=== PATIENT | female | born 1990 | race Hispanic/Latino ===

== ENCOUNTER 2018-03-23 00:05 | Emergency (ER) | payer BC, OTHER, SELFPAY ==
[2018-03-23] MEDS ORDERED: LIDOCAINE 1% MPF 5 ML VIAL ONE (01:03)
--- NOTE | 2018-03-23 01:20 | ER ---
Nurse's Notes [facility] Name: Suzanne Anthony Age: 27 yrs Sex: Female : 1990 Arrival Date: 03/23/2018 Time: 00:07 Bed 6 Private MD: Diagnosis: Laceration without foreign body, right knee Presentation: 03/23 00:24 Presenting complaint: Patient states: "I kneeled into a piece of glass while in my car jd3 in the process of moving.". Transition of care: patient was not received from another setting of care. Onset of symptoms was March 23, 2018. Risk Assessment: Do you want to hurt yourself or someone else? Patient reports no desire to harm self or others. Initial Sepsis Screen: Does the patient meet any 2 criteria? No. Patient's initial sepsis screen is negative. Does the patient have a suspected source of infection? No. Patient's initial sepsis screen is negative. Care prior to arrival: None. 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 - Social history:: Smoking status: Patient uses tobacco products, denies chronic smoking, but will smoke occasionally. - Ebola Screening: : Patient negative for fever greater than or equal to 101.5 degrees Fahrenheit, and additional compatible Ebola Virus Disease symptoms. Screenin:27 Abuse screen: Denies threats or abuse. Nutritional screening: No deficits noted. jd3 Tuberculosis screening: No symptoms or risk factors identified. Fall Risk Ambulatory Aid- None/Bed Rest/Nurse Assist (0 pts). Gait- Normal/Bed Rest/Wheelchair (0 pts) Mental Status- Oriented to own ability (0 pts). Total Sharp Fall Scale indicates No Risk (0-24 pts). Assessment: 00:30 General: Appears in no apparent distress. Behavior is calm, cooperative, appropriate ea for age. Pain: Complains of pain in right knee. Neuro: Level of Consciousness is awake, alert, obeys commands, Oriented to person, place, time, situation. Cardiovascular: Patient's skin is warm and dry. Respiratory: Airway is patent Respiratory effort is even, unlabored, Respiratory pattern is regular, symmetrical. GI: No signs and/or symptoms were reported involving the gastrointestinal system. Derm: Skin is pink, warm \\T\\ dry. laceration to right knee. Musculoskeletal: Circulation, motion, and sensation intact. 01:34 Reassessment: Patient and/or family updated on plan of care and expected duration. Pain ea level reassessed. Patient is alert, oriented x 3, equal unlabored respirations, skin warm/dry/pink. Discharge instructions given to patient, verbalized the understanding of instruction Patient states symptoms have improved. Vital Signs: 00:26 BP 112 / 69; Pulse 72; Resp 16 S; Temp 97.9(O); Pulse Ox 98% on R/A; Weight 81.65 kg jd3 (R); Height 5 ft. 1 in. (154.94 cm) (R); Pain 6/10; 01:11 BP 111 / 65; Pulse 70; Resp 18; Pulse Ox 99% on R/A; ea 00:26 Body Mass Index 34.01 (81.65 kg, 154.94 cm) [facility] ED Course: 00:07 Patient arrived in ED. am2 00:22 Sheela Palacios, RN is Primary Nurse. ea 00:25 Triage completed. jd3 00:25 [facility]. jr8 00:26 Jose Palma MD is Attending Physician. jr8 00:27 Arm band placed on. Bandage applied. jd3 00:28 Patient has correct armband on for positive identification. Bed in low position. Call [facility] light in reach. Side rails up X 1. 01:06 Assist provider with laceration repair on right leg that was between 2.6 to 7.5 cm ea using sutures. Set up tray. Performed by Gonzales WATKINS Patient tolerated well. 01:35 Patient did not have IV access during this emergency room visit. ea Administered Medications: 01:00 Drug: Lidocaine (1 %) 1 vials {Note: provider.} Volume: 20 ml; Route: Infiltration; ea Outcome: 01:19 Discharge ordered by MD. isbell 01:35 Discharged to home via wheelchair, with significant other. erinn 01:35 Condition: improved 01:35 Discharge instructions given to patient, Instructed on discharge instructions, follow up and referral plans. Demonstrated understanding of instructions, follow-up care. 01:36 Patient left the ED. ea Signatures: Gonzales Perkins PA PA jr8 Sushma Buckley Elena RN Endy Chaudhry ea, RN RN jd3
--- NOTE | 2018-03-23 01:21 | EDPHYS ---
Physician Documentation [facility] Name: Suzanne Anthony Age: 27 yrs Sex: Female : 1990 Arrival Date: 03/23/2018 Time: 00:07 Bed 6 Private MD: ED Physician Jose Palma HPI: 03/23 01:16 This 27 yrs old Female presents to ER via Ambulatory with complaints of Knee jr8 Injury. 01:16 The patient presents with a laceration, 3 cm(s). The complaints affect the right knee. jr8 Context: The problem was sustained at home, resulted from a direct blow. Onset: The symptoms/episode began/occurred acutely, today. Modifying factors: The symptoms are alleviated by nothing. the symptoms are aggravated by nothing. Associated signs and symptoms: The patient has no apparent associated signs or symptoms. Severity of symptoms: At their worst the symptoms were mild, in the emergency department the symptoms are unchanged. The patient has not experienced similar symptoms in the past. The patient has not recently seen a physician. cut knee on glass while moving furniture at home . 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 - Social history:: Smoking status: Patient uses tobacco products, denies chronic smoking, but will smoke occasionally. - Ebola Screening: : Patient negative for fever greater than or equal to 101.5 degrees Fahrenheit, and additional compatible Ebola Virus Disease symptoms. ROS: 01:16 Eyes: Negative for injury, pain, redness, and discharge, ENT: Negative for injury, jr8 pain, and discharge, Neck: Negative for injury, pain, and swelling, Cardiovascular: Negative for chest pain, palpitations, and edema, Respiratory: Negative for shortness of breath, cough, wheezing, and pleuritic chest pain, Abdomen/GI: Negative for abdominal pain, nausea, vomiting, diarrhea, and constipation, Back: Negative for injury and pain, MS/Extremity: Negative for injury and deformity, Neuro: Negative for headache, weakness, numbness, tingling, and seizure. 01:16 Skin: Positive for laceration(s). Exam: 01:16 Eyes: Pupils equal round and reactive to light, extra-ocular motions intact. Lids and jr8 lashes normal. Conjunctiva and sclera are non-icteric and not injected. Cornea within normal limits. Periorbital areas with no swelling, redness, or edema. ENT: Nares patent. No nasal discharge, no septal abnormalities noted. Tympanic membranes are normal and external auditory canals are clear. Oropharynx with no redness, swelling, or masses, exudates, or evidence of obstruction, uvula midline. Mucous membranes moist. Neck: Trachea midline, no thyromegaly or masses palpated, and no cervical lymphadenopathy. Supple, full range of motion without nuchal rigidity, or vertebral point tenderness. No Meningismus. Cardiovascular: Regular rate and rhythm with a normal S1 and S2. No gallops, murmurs, or rubs. Normal PMI, no JVD. No pulse deficits. Respiratory: Lungs have equal breath sounds bilaterally, clear to auscultation and percussion. No rales, rhonchi or wheezes noted. No increased work of breathing, no retractions or nasal flaring. Abdomen/GI: Soft, non-tender, with normal bowel sounds. No distension or tympany. No guarding or rebound. No evidence of tenderness throughout. Back: No spinal tenderness. No costovertebral tenderness. Full range of motion. MS/ Extremity: Pulses equal, no cyanosis. Neurovascular intact. Full, normal range of motion. Neuro: Awake and alert, GCS 15, oriented to person, place, time, and situation. Cranial nerves II-XII grossly intact. Motor strength 5/5 in all extremities. Sensory grossly intact. Cerebellar exam normal. Normal gait. 01:16 Skin: injury, laceration(s), the wound is approximately 3 cm(s), with a depth of .3 cm(s), of the right knee, that can be described as no foreign body, linear, with mild bleeding. Vital Signs: 00:26 BP 112 / 69; Pulse 72; Resp 16 S; Temp 97.9(O); Pulse Ox 98% on R/A; Weight 81.65 kg jd3 (R); Height 5 ft. 1 in. (154.94 cm) (R); Pain 6/10; 01:11 BP 111 / 65; Pulse 70; Resp 18; Pulse Ox 99% on R/A; ea 00:26 Body Mass Index 34.01 (81.65 kg, 154.94 cm) jd3 Laceration: 01:16 Wound Repair of 3cm ( 1.2in ) subcutaneous laceration to right knee. Linear shaped.. jr8 Minimal bleeding noted.. Distal neuro/vascular/tendon intact. Anesthesia: Local anesthetic administered with 2 mls of 1% lidocaine. Wound prep: Moderate cleansing with betadine, Wound explored extensively. Skin closed with 3 3-0 Prolene using interrupted sutures and sterile technique. Patient tolerated well. MDM: 00:26 Patient medically screened. jr8 :16 Data reviewed: vital signs, nurses notes, and as a result, I will discharge patient. jr8 Data interpreted: Pulse oximetry: on room air is 99 %. Interpretation: normal. Counseling: I had a detailed discussion with the patient and/or guardian regarding: the historical points, exam findings, and any diagnostic results supporting the discharge/admit diagnosis, the need for outpatient follow up, a family practitioner, to return to the emergency department if symptoms worsen or persist or if there are any questions or concerns that arise at home. ED course: Patient up to date on tetanus . 03/23 00:47 Order name: Prolene, Sutures; Complete Time: 00:56 03/23 00:47 Order name: Dressing - Wound; Complete Time: 00:56 03/23 00:47 Order name: Gloves, Sterile; Complete Time: 0056 03/23 00:47 Order name: Setup Suture Tray; Complete Time: Administered Medications: 01:00 Drug: Lidocaine (1 %) 1 vials {Note: provider.} Volume: 20 ml; Route: Infiltration; ea Disposition: 06:29 Co-signature as Attending Physician, Jose Palma MD I agree with the assessment and viviana plan of care. Disposition: 03/23/18 01:19 Discharged to Home. Impression: Laceration without foreign body, right knee. - Condition is Stable. - Discharge Instructions: Laceration Care, Adult. - Medication Reconciliation Form, Thank You Letter, Antibiotic Education, Prescription Opioid Use, Work release form, Family Work Release form. - Follow up: Private Physician; When: 7 - 10 days; Reason: Wound Recheck, Recheck today's complaints, Continuance of care, Staple/Suture removal, Re-evaluation by your physician. - Problem is new. - Symptoms have improved. Signatures: Jose Palma MD MD cha Roszak, Josh, PA PA jr8 Sheela Palacios RN RN ea Endy Santiago RN RN jd3 Corrections: (The following items were deleted from the chart) 01:36 01:19 03/23/2018 01:19 Discharged to Home. Impression: Laceration without foreign body, ea right knee. Condition is Stable. Forms are Medication Reconciliation Form, Thank You Letter, Antibiotic Education, Prescription Opioid Use. Follow up: Private Physician; When: 7 - 10 days; Reason: Wound Recheck, Recheck today's complaints, Continuance of care, Staple/Suture removal, Re-evaluation by your physician. Problem is new. Symptoms have improved. jr8
== END 2018-03-23 01:36 | disposition home or self-care (01) ==
LOC: ER 00:05
PROC: 0JQN0ZZ Repair Right Lower Leg Subcutaneous Tissue and Fascia, Open Approach (ICD-10-PCS; principal; 2018-03-23)
DX: S81.011A Laceration without foreign body, right knee, initial encounter (principal); W25.XXXA Contact with sharp glass, initial encounter; Y93.89 Activity, other specified; Y92.009 Unspecified place in unspecified non-institutional (private) residence as the place of occurrence of the external cause; Z72.0 Tobacco use
CPT/HCPCS: 99283

== ENCOUNTER 2018-08-11 07:18 | Emergency (ER) | payer BC, SELFPAY ==
[2018-08-11 08:04] LABS: Absolute Lymphocytes (CBC) 2.2 K/uL (0.7-4.9); Absolute Monocytes 0.6 K/uL (0.1-1.3); Absolute Neutrophil 8.1 K/uL (1.8-8.0); Basophils % 0.5 % (0-1.3); Eosinophils % 0.8 % (0-4.4); Hematocrit 42.7 % (36.0-45.0); Lymphocytes % 19.7 % (15.3-44.8); MPV 9.1 fL (7.6-11.3); Monocytes % 5.7 % (3.3-12.3); RBC Red Blood Cell Count 5.26 M/uL (3.86-4.86)
[2018-08-11 08:07] LABS: Urine Blood NEGATIVE (NEG); Urine Glucose NEGATIVE (NEG); Urine Protein 1+ (NEG); Urine Specific Gravity 1.025 (1.005-1.030)
[2018-08-11 08:09] LABS: Urine Bacteria >50 /HPF (<20); Urine Culture Reflex Order NOT NEEDED; Urine Mucus HEAVY /HPF (NONE SEEN); Urine RBC <5 /HPF (NONE SEEN)
[2018-08-11] MEDS ORDERED: MORPHINE 2 MG/ML SYR ONE (08:16)
[2018-08-11] MEDS ORDERED: NA CHLORIDE 0.9% 1,000 ML ONE (08:16)
[2018-08-11] MEDS ORDERED: ONDANSETRON 4 MG/2 ML VIAL ONE ×2 (08:16→10:25)
[2018-08-11 08:20] LABS: ALT/SGPT 26 U/L (12-78); AST/SGOT 14 U/L (15-37); Albumin 3.9 g/dL (3.4-5.0); Alkaline Phosphatase 107 U/L (45-117); BUN Blood Urea Nitrogen 8 mg/dL (7-18); Bicarbonate 26 mmol/L (21-32); Bilirubin Direct 0.1 mg/dL (0-0.2); Bilirubin Total 0.5 mg/dL (0.2-1.0); Glucose Level 101 mg/dL (74-106); Lipase 107 U/L (73-393); Potassium 3.3 mmol/L (3.5-5.1); Protein, Total 8.1 g/dL (6.4-8.2); Sodium Level 140 mmol/L (136-145)
--- NOTE | 2018-08-11 09:06 | RAD REPORT ---
EXAM DESCRIPTION: CT - Stone Protocol - 08/11/2018 8:25 am CLINICAL HISTORY: Abdominal pain. Lower abdominal pain. Urinary frequency COMPARISON: 2017 TECHNIQUE: Computed axial tomography of the abdomen pelvis was obtained without oral or IV contrast. Lack of IV and oral contrast limits evaluation of solid organs, bowel, and vessels. Coronal reformat loki images were obtained and reviewed. All CT scans are performed using dose optimization technique as appropriate and may include automated exposure control or mA/KV adjustment according to patient size. FINDINGS: A renal calculus is not seen. An ureteral calculus is not noted. A bladder calculus is not present. The liver, spleen, pancreas and adrenals appear grossly normal Cholecystectomy There is no evidence of diverticulitis. The appendix is borderline dilated. No stranding is seen within the adjacent fat. Increased density w ithin the appendix probably contrast from prior exams. 2 centimeter left ovarian cyst without significant free fluid IMPRESSION: Negative for a genitourinary calculus 2 centimeter left ovarian cyst without significant free-fluid Borderline dilatation of the appendix. This is equivocal for an early appendicitis and should be shannan elated clinically
--- NOTE | 2018-08-11 09:17 | ER ---
Nurse's Notes [facility] Name: Suzanne Anthony Age: 28 yrs Sex: Female : 1990 Arrival Date: 08/11/2018 Time: 07:23 Bed 5 Private MD: Diagnosis: Other abdominal pain-left flank Presentation: 08/11 07:33 Presenting complaint: Patient states: LLQ abd pain for 4 days, worsening today, reports sg N/V and Constipationx1 day, has also had some dizziness that began this morning. Had fever and took tylenol around 0400 this morning. Transition of care: patient was not received from another setting of care. Onset of symptoms was August 11, 2018. Risk Assessment: Do you want to hurt yourself or someone else? Patient reports no desire to harm self or others. Initial Sepsis Screen: Does the patient meet any 2 criteria? No. Patient's initial sepsis screen is negative. Does the patient have a suspected source of infection? Yes: Acute abdominal pain. Care prior to arrival: None. 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 - Social history:: Smoking status: Patient/guardian denies using tobacco. - Ebola Screening: : Patient negative for fever greater than or equal to 101.5 degrees Fahrenheit, and additional compatible Ebola Virus Disease symptoms Patient denies exposure to infectious person Patient denies travel to an Ebola-affected area in the 21 days before illness onset No symptoms or risks identified at this time. Screenin:40 Abuse screen: Denies threats or abuse. Denies injuries from another. Nutritional sg screening: No deficits noted. Tuberculosis screening: No symptoms or risk factors identified. Never had TB. Fall Risk None identified. Assessment: 07:40 General: Appears in no apparent distress. well groomed, well developed, well nourished, sg Behavior is calm, cooperative, appropriate for age, crying. Pain: Complains of pain in left upper quadrant and left lower quadrant Quality of pain is described as aching, tender. Neuro: Level of Consciousness is awake, alert, obeys commands, Oriented to person, place, time, Toy Stuffer are equal bilaterally Moves all extremities. Full function Gait is steady, Speech is normal. Cardiovascular: Capillary refill is brisk in bilateral fingers Patient's skin is warm and dry. Chest pain is denied. Respiratory: Airway is patent Respiratory effort is even, unlabored, Respiratory pattern is regular, symmetrical. GI: Bowel sounds present X 4 quads. Abd is soft X 4 quads Abdomen is tender to palpation in left upper quadrant and left lower quadrant Guarding noted. : No signs and/or symptoms were reported regarding the genitourinary system. EENT: No signs and/or symptoms were reported regarding the EENT system. Derm: Skin is pink, warm \\T\\ dry. Musculoskeletal: No signs and/or symptoms reported regarding the musculoskeletal system. 08:39 Reassessment: Patient appears in no apparent distress at this time. Patient is alert, sg oriented x 3, equal unlabored respirations, skin warm/dry/pink. Patient states symptoms have not improved. Reassessment: reports pain unchanged at this time after medication, awaiting lab results and radiology results at this time, pt stated understanding, no new orders received, will continue to monitor. General: Behavior is crying. 09:40 Reassessment: Patient appears in no apparent distress at this time. pt states that the sg PA would like to obtain a straight catheter urine, " I dont want that." orders to dc pt to home pending PO challenge and Bentyl. 09:53 Reassessment: Patient appears in no apparent distress at this time. reports still sg feeling nauseated. Vital Signs: 07:36 BP 114 / 89; Pulse 89; Resp 18; Temp 97.9; Pulse Ox 100% on R/A; Height 5 ft. 0 in. sg (152.40 cm); Pain 10/10; 08:41 BP 132 / 88; Pulse 88; Resp 18; Pulse Ox 100% on R/A; Pain 10/10; sg ED Course: 07:23 Patient arrived in ED. ds1 07:25 oJse Palma MD is Attending Physician. viviana 07:33 Ibrahima Hewitt, ELIZA is Primary Nurse. sg 07:33 Arm band placed on. sg 07:35 Triage completed. sg 07:36 Urine collected: clean catch specimen, clear. sg 07:40 Patient has correct armband on for positive identification. Bed in low position. Call sg light in reach. Side rails up X2. Pulse ox on. NIBP on. 07:42 Jose Cohen PA is PHCP. cp 07:50 Initial lab(s) drawn, by me, sent to lab. Inserted saline lock: 20 gauge in left sg antecubital area, using aseptic technique. Blood collected. 08:27 CT Stone Protocol In Process Unspecified. EDMS Administered Medications: 08:00 Drug: morphine 2 mg Route: IVP; Site: left antecubital; sg 08:34 Follow up: Response: No adverse reaction; Pain is unchanged, physician notified sg 08:07 Drug: NS 0.9% 1000 ml Route: IV; Rate: 1 bolus; Site: left antecubital; sg 08:07 Drug: Zofran 4 mg Route: IVP; Site: left antecubital; sg 08:34 Follow up: Response: No adverse reaction; No change in condition sg 09:34 Drug: Bentyl 20 mg Route: PO; sg 10:05 Follow up: Response: No adverse reaction hb 10:15 Drug: Zofran 4 mg Route: IVP; Site: left antecubital; hb Outcome: 09:17 Discharge ordered by . cp 10:41 Patient left the ED. ag Signatures: Dispatcher [employer] EDMS Ibrahima Hewitt, Jose Sharif RN, MD MD cha Sanford, Demi ds1 Salima Perez Jose Cohen PA PA cp Baxter, Heather, RN RN hb
--- NOTE | 2018-08-11 09:18 | EDPHYS ---
Physician Documentation [facility] Name: Suzanne Anthony Age: 28 yrs Sex: Female : 1990 Arrival Date: 08/11/2018 Time: 07:23 Bed 5 Private MD: ED Physician Jose Palma HPI: 08/11 07:50 This 28 yrs old Female presents to ER via Ambulatory with complaints of cp Abdominal Problem. 07:50 The patient presents with abdominal pain left flank. Onset: The symptoms/episode cp began/occurred 3 day(s) ago. [employer]: 07:36 LMP 08/02/2018 sg Historical: - Allergies: 07:35 Ibuprofen; sg 07:35 Naproxen; sg - PMHx: 07:35 Ovarian cyst; sciatica; sg - PSHx: 07:35 Cholecystectomy; sg - Immunization history:: Adult Immunizations up to date. - Social history:: Smoking status: Patient/guardian denies using tobacco. - Ebola Screening: : Patient negative for fever greater than or equal to 101.5 degrees Fahrenheit, and additional compatible Ebola Virus Disease symptoms Patient denies exposure to infectious person Patient denies travel to an Ebola-affected area in the 21 days before illness onset No symptoms or risks identified at this time. ROS: 08:00 Constitutional: Negative for body aches, chills, fever, poor PO intake. cp 08:00 Eyes: Negative for injury, pain, redness, and discharge. cp 08:00 Cardiovascular: Negative for chest pain, palpitations. 08:00 Respiratory: Negative for cough, shortness of breath, wheezing. 08:00 Abdomen/GI: Positive for nausea, of the left flank, Negative for diarrhea, constipation. 08:00 Back: Negative for injury or acute deformity. 08:00 : Negative for urinary symptoms, pelvic pain, vaginal bleeding, vaginal discharge. 08:00 Skin: Negative for rash. 08:00 Neuro: Negative for altered mental status, headache, weakness. 08:00 All other systems are negative. Exam: 08:05 Constitutional: The patient appears in no acute distress, alert, awake, non-toxic, well cp developed, well nourished. 08:05 Head/Face: Normocephalic, atraumatic. cp 08:05 Eyes: Periorbital structures: appear normal, Conjunctiva: normal, no exudate, no injection, Sclera: no appreciated abnormality, Lids and lashes: appear normal, bilaterally. 08:05 ENT: External ear(s): are unremarkable, Nose: is normal, Mouth: is normal, Posterior pharynx: is normal, airway is patent, no erythema, no exudate. 08:05 Chest/axilla: Inspection: normal, Palpation: is normal, no crepitus, no tenderness. 08:05 Cardiovascular: Rate: normal, Rhythm: regular. 08:05 Respiratory: the patient does not display signs of respiratory distress, Respirations: normal, no use of accessory muscles, no retractions, no splinting, no tachypnea, labored breathing, is not present, Breath sounds: are clear throughout, no decreased breath sounds, no stridor, no wheezing. 08:05 Abdomen/GI: Inspection: abdomen appears normal, Bowel sounds: active, all quadrants, Palpation: soft, in all quadrants, moderate abdominal tenderness, in the anterior aspect of left lateral abdomen, left upper quadrant and left lower quadrant, rebound tenderness, is not appreciated, voluntary guarding, is elicited in the anterior aspect of left lateral abdomen, left upper quadrant and left lower quadrant. 08:05 Skin: no rash present. Vital Signs: 07:36 BP 114 / 89; Pulse 89; Resp 18; Temp 97.9; Pulse Ox 100% on R/A; Height 5 ft. 0 in. sg (152.40 cm); Pain 10/10; 08:41 BP 132 / 88; Pulse 88; Resp 18; Pulse Ox 100% on R/A; Pain 10/10; sg MDM: 07:25 Patient medically screened. viviana 08:00 Differential diagnosis: bowel obstruction, non-specific abd pain, pancreatitis, Pelvic cp Inflammatory Disease, Pyelonephritis, Ureterolithiasis, urinary tract infection. 10:16 Counseling: I had a detailed discussion with the patient and/or guardian regarding: the cp historical points, exam findings, and any diagnostic results supporting the discharge/admit diagnosis, lab results, radiology results. 10:16 Data reviewed: vital signs, nurses notes, lab test result(s), radiologic studies, CT cp scan. Response to treatment: the patient's symptoms have markedly improved after treatment, and as a result, I will discharge patient. Special discussion: Based on the patient's Hx, exam, and Dx evaluation, there is no indication for emergent surgery or inpatient Tx. It is understood by the patient/guardian that if the Sx's persist or worsen they need to return immediately for re-evaluation. 08/11 07:46 Order name: Basic Metabolic Panel 08/11 07:46 Order name: CBC with Diff cp 08/11 07:46 Order name: Creatinine for Radiology 08/11 07:46 Order name: Hepatic Function cp 08/11 07:46 Order name: Lipase cp 08/11 07:46 Order name: Urine Microscopic Only; Complete Time: 08:12 cp 08/11 08:13 Interpretation: Normal except: UBACT >50; SQEPI 20-50. 08/11 07:48 Order name: Basic Metabolic Panel; Complete Time: 09:07 EDMS 08/11 09:07 Interpretation: Normal except: K 3.3. cp 08/11 07:48 Order name: CBC with Automated Diff; Complete Time: 08:12 EDMS 08/11 08:13 Interpretation: Normal except: WBC 11.1; RBC 5.26; NEUT A 8.1. 08/11 07:48 Order name: Creatinine (Radiology Only); Complete Time: 09:07 EDMS 08/11 07:48 Order name: Liver (Hepatic) Function; Complete Time: 09:07 EDMS 08/11 09:07 Interpretation: Normal except: AST 14; GLOB 4.2; A/G 0.9. cp 08/11 07:48 Order name: Lipase; Complete Time: 09:07 EDMS 08/11 08:02 Order name: Urine Dipstick--Ancillary (enter results); Complete Time: 08:12 ag 08/11 08:13 Interpretation: Normal except: UKET 1+; UPROT 1+. cp 08/11 08:02 Order name: Urine --Ancillary (enter results); Complete Time: 08:12 ag 08/11 08:16 Interpretation: Reviewed. cp 08/11 08:14 Order name: CT Stone Protocol; Complete Time: 09:07 cp 08/11 07:46 Order name: IV Saline Lock; Complete Time: 07:58 cp 08/11 07:46 Order name: Labs collected and sent; Complete Time: 07:58 cp 08/11 07:46 Order name: Urine Dipstick-Ancillary (obtain specimen); Complete Time: 07:58 cp 08/11 07:46 Order name: Urine Test (obtain specimen); Complete Time: 07:58 cp 08/11 09:16 Order name: PO challenge; Complete Time: 10:04 cp Administered Medications: 08:00 Drug: morphine 2 mg Route: IVP; Site: left antecubital; sg 08:34 Follow up: Response: No adverse reaction; Pain is unchanged, physician notified sg 08:07 Drug: NS 0.9% 1000 ml Route: IV; Rate: 1 bolus; Site: left antecubital; sg 08:07 Drug: Zofran 4 mg Route: IVP; Site: left antecubital; sg 08:34 Follow up: Response: No adverse reaction; No change in condition sg 09:34 Drug: Bentyl 20 mg Route: PO; sg 10:05 Follow up: Response: No adverse reaction hb 10:15 Drug: Zofran 4 mg Route: IVP; Site: left antecubital; hb Disposition: 08/12 07:20 Co-signature as Attending Physician, Jose Palma MD I agree with the assessment and [facility] plan of care. Disposition: 08/11/18 09:17 Discharged to Home. Impression: Other abdominal pain - left flank. - Condition is Stable. - Discharge Instructions: Abdominal Pain, Adult. - Prescriptions for Bentyl 20 mg Oral Tablet - take 2 tablets by ORAL route every 6 hours As needed; 30 tablet. Zofran 4 mg Oral Tablet - take 1 tablet by ORAL route every 12 hours As needed; 20 tablet. - Medication Reconciliation Form, Thank You Letter, Antibiotic Education, Prescription Opioid Use, Work release form form. - Follow up: Private Physician; When: 1 - 2 days; Reason: Worsening of condition. - Problem is new. - Symptoms have improved. Signatures: Dispatcher [employer] Ibrahima Garay RN RN Jose Ramirez MD MD cha Gallardo, Ana ag Page, Corey, PA PA cp Baxter, Heather, ELIZA RN Corrections: (The following items were deleted from the chart) 08/11 08:13 08:13 Normal except: WBC 11.1; RBC 5.26. cp cp 10:41 09:17 08/11/2018 09:17 Discharged to Home. Impression: Other abdominal pain - left ag flank. Condition is Stable. Forms are Medication Reconciliation Form, Thank You Letter, Antibiotic Education, Prescription Opioid Use. Follow up: Private Physician; When: 1 - 2 days; Reason: Worsening of condition. Problem is new. Symptoms have improved. cp 08/12 10:39 08/11 09:15 Data reviewed: vital signs, nurses notes, lab test result(s), radiologic cp studies, CT scan, and as a result, I will discharge patient, cp
[2018-08-11] MEDS ORDERED: DICYCLOMINE HCL 10 MG CAP ONE (09:39)
== END 2018-08-11 10:41 | disposition home or self-care (01) ==
LOC: ER 07:18
DX: R10.9 Unspecified abdominal pain (principal); Z88.6 Allergy status to analgesic agent
CPT/HCPCS: 36415; 74176; 76377; 80048; 80076; 81003; 81015; 81025; 83690; 85025; 96374; 96375; 99284; J2270; J2405; J7030

== ENCOUNTER 2018-09-05 12:13 | Emergency (ER) | payer SELFPAY ==
[2018-09-05 13:30] LABS: Urine Blood NEGATIVE (NEG); Urine Glucose NEGATIVE (NEG); Urine Protein NEGATIVE (NEG); Urine Specific Gravity 1.025 (1.005-1.030)
--- NOTE | 2018-09-05 13:52 | RAD REPORT ---
EXAM DESCRIPTION: US - Abdomen Exam Limited - 09/05/2018 1:16 pm CLINICAL HISTORY: Abdominal pain COMPARISON: CT imaging August 11 FINDINGS: Gallbladder is absent. Biliary tree is 4 mm in maximum dimension, normal range, with no du ct stone. No mass or abnormal fluid collection in the gallbladder fossa. IMPRESSION: Negative post cholecystectomy right upper quadrant ultrasound study.
--- NOTE | 2018-09-05 14:19 | RAD REPORT ---
EXAM DESCRIPTION: CT - Abdomen Pelvis Wo Contrast - 09/05/2018 2:01 pm CLINICAL HISTORY: Abdominal pain, bilateral flank pain, nausea, vomiting and chills, prior cholecyst ectomy COMPARISON: CT study August 11, 2018 TECHNIQUE: Axial [address] imaging of the abdomen and pelvis was performed without IV contrast. No IV contrast was given because of allergy, abnormal renal function, patient refusal or physician re quest. No oral contrast given. All CT scans are performed using dose optimization technique as appropriate and may include automated exposure control or mA/KV adjustment according to patient size. FINDINGS: No suspicious findings in the lung bases. The liver, spleen and pancreas show no suspicious findings on non-contrast imaging. Cholecystectomy c lips are present. No biliary tree dilatation. No hydronephrosis or suspicious renal mass. No obstructing or nonobstructing calculi. No significant adrenal finding. Isodense renal masses and pyelonephritis cannot be excluded in the absence of IV con trast. Urinary bladder is fully contracted limiting assessment. No bladder calculi seen. Uterus and o varies show no acute or suspicious findings. Left ovarian cyst seen August 11 has diminished in size. No gastric dilatation or wall thickening. No dilation of the large or small bowel. Hyperdensity withi n the lumen of the appendix has not changed. No new or progressive finding of the appendix. No free a ir, free fluid or inflammatory stranding. No hernia, mass or bulky lymphadenopathy. No suspicious bony findings. IMPRESSION: Non-contrast enhanced CT abdomen and pelvis imaging show no significant or suspicious fi nding. The appendix has not change from the August 11 study. Appendicitis is not suspected. Left ovarian cyst seen on the August 11 study has decreased in prominence. Full assessment is limited is the absence of IV contrast.
[2018-09-05 14:25] LABS: ALT/SGPT 31 U/L (12-78); AST/SGOT 15 U/L (15-37); Alkaline Phosphatase 98 U/L (45-117); BUN Blood Urea Nitrogen 9 mg/dL (7-18); Bicarbonate 29 mmol/L (21-32); Bilirubin Direct < 0.1 mg/dL (0-0.2); Bilirubin Total 0.4 mg/dL (0.2-1.0); Glucose Level 92 mg/dL (74-106); Lipase 94 U/L (73-393); Potassium 3.7 mmol/L (3.5-5.1); Protein, Total 8.3 g/dL (6.4-8.2); Sodium Level 141 mmol/L (136-145)
[2018-09-05 14:26] LABS: Basophils % 0.8 % (0-1.3); Hematocrit 45.7 % (36.0-45.0); MPV 9.7 fL (7.6-11.3); Monocytes % 5.7 % (3.3-12.3); RBC Red Blood Cell Count 5.58 M/uL (3.86-4.86)
[2018-09-05] MEDS ORDERED: FENTANYL CITR 100 MCG/2 ML ONE (14:26)
[2018-09-05] MEDS ORDERED: ONDANSETRON 4 MG/2 ML VIAL ONE (14:26)
[2018-09-05] MEDS ORDERED: FAMOTIDINE 20 MG/2 ML VIAL IV ONE (14:26)
--- NOTE | 2018-09-05 15:54 | ER ---
Nurse's Notes [facility] Name: Suzanne Anthony Age: 28 yrs Sex: Female : 1990 Arrival Date: 09/05/2018 Time: 12:16 Bed 23 Private MD: Diagnosis: Upper abdominal pain, unspecified;Vomiting;upper and mid back pain Presentation: 09/05 12:16 Presenting complaint: Patient states: i have a stomach pain from my L mid abd all the hj way to the R mid abd towards the back area, feels like a shocking pain, pain also moves down to my leg area; pain is 7/10; reports N/V; reports chills; LMP- 08/16/18. Transition of care: patient was not received from another setting of care. Onset of symptoms was September 05, 2018. Risk Assessment: Do you want to hurt yourself or someone else? Patient reports no desire to harm self or others. Initial Sepsis Screen: Does the patient meet any 2 criteria? No. Patient's initial sepsis screen is negative. Does the patient have a suspected source of infection? No. Patient's initial sepsis screen is negative. Care prior to arrival: None. 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 - Social history:: Smoking status: Patient/guardian denies using tobacco, never smoked, Patient/guardian denies using alcohol, street drugs, The patient lives with family. - Ebola Screening: : Patient denies travel to an Ebola-affected area in the 21 days before illness onset. - Family history:: not pertinent. - Hospitalizations: : No recent hospitalization is reported. Screenin:50 Abuse screen: Denies threats or abuse. Denies injuries from another. Nutritional aj1 screening: No deficits noted. Tuberculosis screening: No symptoms or risk factors identified. 16:33 Fall Risk None identified. aj1 Assessment: 12:50 General: Appears in no apparent distress. comfortable, Behavior is calm, cooperative, aj1 appropriate for age. Pain: Complains of pain in right upper quadrant and left upper quadrant Pain radiates to back Pain currently is 8 out of 10 on a pain scale. Quality of pain is described as sharp. Neuro: Level of Consciousness is awake, alert, obeys commands, Oriented to person, place, time, situation. Cardiovascular: Patient's skin is warm and dry. Respiratory: Airway is patent Respiratory effort is even, unlabored, Respiratory pattern is regular, symmetrical. GI: Abdomen is flat, non-distended, Bowel sounds present X 4 quads. Abd is soft and non tender X 4 quads. Reports diarrhea, nausea, vomiting. : No signs and/or symptoms were reported regarding the genitourinary system. EENT: No signs and/or symptoms were reported regarding the EENT system. Derm: No signs and/or symptoms reported regarding the dermatologic system. Skin is pink, warm \T\ dry. normal. Musculoskeletal: No signs and/or symptoms reported regarding the musculoskeletal system. Circulation, motion, and sensation intact. 14:15 Reassessment: Patient appears in no apparent distress at this time. No changes from aj1 previously documented assessment. Patient and/or family updated on plan of care and expected duration. Pain level reassessed. Patient is alert, oriented x 3, equal unlabored respirations, skin warm/dry/pink. 15:05 Reassessment: Patient appears in no apparent distress at this time. No changes from aj1 previously documented assessment. Patient and/or family updated on plan of care and expected duration. Pain level reassessed. Patient is alert, oriented x 3, equal unlabored respirations, skin warm/dry/pink. 16:10 Reassessment: Patient appears in no apparent distress at this time. No changes from aj1 previously documented assessment. Patient and/or family updated on plan of care and expected duration. Pain level reassessed. Patient is alert, oriented x 3, equal unlabored respirations, skin warm/dry/pink. Vital Signs: 12:19 BP 123 / 63; Pulse 72; Resp 16; Temp 98.0(O); Pulse Ox 100% on R/A; Weight 72.57 kg; hj Height 5 ft. 0 in. (152.40 cm); Pain 7/10; 14:16 BP 123 / 61; Pulse 60; Resp 18; Pulse Ox 99% on R/A; aj1 15:05 BP 125 / 62; Pulse 70; Resp 21; Pulse Ox 97% on R/A; aj1 16:00 BP 112 / 73 LA (auto/reg); Pulse 63; Temp 98.4; Pulse Ox 100% ; Pain 6/10; jp3 12:19 Body Mass Index 31.25 (72.57 kg, 152.40 cm) ED Course: 12:16 Patient arrived in ED. mr 12:19 Triage completed. hj 12:19 Arm band placed on left wrist. hj 12:45 Sarmad Lynch MD is Attending Physician. wa 12:50 Abbey Patterson, RN is Primary Nurse. aj1 12:50 Patient has correct armband on for positive identification. Bed in low position. Call aj1 light in reach. Side rails up X 1. 12:50 No provider procedures requiring assistance completed. aj1 13:16 US Abdomen Limited In Process Unspecified. EDMS 13:50 Initial lab(s) drawn, by ca, sent to lab. Inserted saline lock: 20 gauge in right jp3 antecubital area, using aseptic technique. Blood collected. 13:57 CBC with Automated Diff Sent. jp3 13:57 Basic Metabolic Panel Sent. jp3 13:57 Basic Metabolic Panel Sent. jp3 13:57 CBC with Diff Sent. jp3 13:57 Creatinine for Radiology Sent. jp3 13:57 Hepatic Function Sent. jp3 13:57 Lipase Sent. jp3 14:03 CT Abd/Pelvis - Without Contrast In Process Unspecified. EDMS 15:46 Urine collected: clean catch specimen, clear, mackenzie colored. mg2 15:53 Sarmad Serrato MD is Referral Physician. wa 16:33 IV discontinued, intact, bleeding controlled, No redness/swelling at site. Pressure aj1 dressing applied. Administered Medications: 14:14 Drug: Pepcid 20 mg Route: IVP; Site: right antecubital; aj1 16:25 Follow up: Response: No adverse reaction aj1 14:15 Drug: fentaNYL (PF) 50 mcg Route: IVP; Site: right antecubital; aj1 16:25 Follow up: Response: No adverse reaction; Pain is decreased aj1 14:15 Drug: Zofran 2 mg Route: IVP; Site: right antecubital; aj1 16:25 Follow up: Response: No adverse reaction aj1 Outcome: 15:54 Discharge ordered by . yonatan 16:32 Discharged to home ambulatory. aj1 16:32 Condition: good 16:32 Discharge instructions given to patient, Instructed on discharge instructions, follow up and referral plans. medication usage, Demonstrated understanding of instructions, follow-up care, medications, Prescriptions given X 4. 16:34 Patient left the ED. aj1 Signatures: Dispatcher [employer] EDMS Abbey Patterson RN RN ajFifi Giles PraveenBehzad collins RN RN Sarmad Lynch MD MD wa Gardose, Michele, RN RN [facility] Kj Rosas jp3 Corrections: (The following items were deleted from the chart) 12:22 12:19 Pulse 72bpm; Resp 16bpm; Pulse Ox 100% RA; Temp 98.0F Oral; 72.57 kg; Height 5 hj ft. 0 in.; BMI: 31.2; Pain 7/10; hj
--- NOTE | 2018-09-05 15:55 | EDPHYS ---
Physician Documentation [facility] Name: Suzanne Anthony Age: 28 yrs Sex: Female : 1990 Arrival Date: 09/05/2018 Time: 12:16 Bed 23 Private MD: ED Physician Sarmad Lynch HPI: 09/06 07:01 This 28 yrs old Female presents to ER via Ambulatory with complaints of wa Abdominal Pain, Back Pain. 07:02 The patient presents with pain that is acute, with no known mechanism of injury. The wa symptoms are located in the left mid back and right mid back, also associated with upper abdominal pain and vomiting x 4 days. denies fever. Onset: The symptoms/episode began/occurred 4 day(s) ago. The pain radiates to the abdomen. Associated signs and symptoms: Pertinent positives: abdominal pain, nausea, vomiting, Pertinent negatives: dysuria, hematuria, urinary retention. The problem was sustained denies injury. Modifying factors: The patient symptoms are alleviated by nothing, the patient symptoms are aggravated by nothing. Severity of symptoms: At their worst the symptoms were moderate, in the emergency department the symptoms are unchanged. The patient has not experienced similar symptoms in the past. The patient has not recently seen a physician. 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 - Social history:: Smoking status: Patient/guardian denies using tobacco, never smoked, Patient/guardian denies using alcohol, street drugs, The patient lives with family. - Ebola Screening: : Patient denies travel to an Ebola-affected area in the 21 days before illness onset. - Family history:: not pertinent. - Hospitalizations: : No recent hospitalization is reported. ROS: 09/06 07:07 Constitutional: Negative for fever, chills, and weight loss, Eyes: Negative for injury, wa pain, redness, and discharge, ENT: Negative for injury, pain, and discharge, Neck: Negative for injury, pain, and swelling, Cardiovascular: Negative for chest pain, palpitations, and edema, Respiratory: Negative for shortness of breath, cough, wheezing, and pleuritic chest pain, : Negative for injury, bleeding, discharge, and swelling, MS/Extremity: Negative for injury and deformity, Skin: Negative for injury, rash, and discoloration, Neuro: Negative for headache, weakness, numbness, tingling, and seizure, Psych: Negative for depression, anxiety, suicide ideation, homicidal ideation, and hallucinations. Abdomen/GI: Positive for abdominal pain, nausea and vomiting, Negative for diarrhea, constipation, rectal bleeding. Back: Positive for pain at rest, pain with movement, of the left mid back and right mid back. All other systems are negative. Exam: 07:07 Constitutional: This is a well developed, well nourished patient who is awake, alert, wa and in no acute distress. Head/Face: Normocephalic, atraumatic. Eyes: Pupils equal round and reactive to light, extra-ocular motions intact. Lids and lashes normal. Conjunctiva and sclera are non-icteric and not injected. Cornea within normal limits. Periorbital areas with no swelling, redness, or edema. ENT: Nares patent. No nasal discharge, no septal abnormalities noted. Tympanic membranes are normal and external auditory canals are clear. Oropharynx with no redness, swelling, or masses, exudates, or evidence of obstruction, uvula midline. Mucous membranes moist. Neck: Trachea midline, no thyromegaly or masses palpated, and no cervical lymphadenopathy. Supple, full range of motion without nuchal rigidity, or vertebral point tenderness. No Meningismus. Chest/axilla: Normal chest wall appearance and motion. Nontender with no deformity. No lesions are appreciated. Cardiovascular: Regular rate and rhythm with a normal S1 and S2. No gallops, murmurs, or rubs. Normal PMI, no JVD. No pulse deficits. Respiratory: Lungs have equal breath sounds bilaterally, clear to auscultation and percussion. No rales, rhonchi or wheezes noted. No increased work of breathing, no retractions or nasal flaring. Skin: Warm, dry with normal turgor. Normal color with no rashes, no lesions, and no evidence of cellulitis. MS/ Extremity: Pulses equal, no cyanosis. Neurovascular intact. Full, normal range of motion. Neuro: Awake and alert, GCS 15, oriented to person, place, time, and situation. Cranial nerves II-XII grossly intact. Motor strength 5/5 in all extremities. Sensory grossly intact. Cerebellar exam normal. Normal gait. Psych: Awake, alert, with orientation to person, place and time. Behavior, mood, and affect are within normal limits. 07:07 Abdomen/GI: Inspection: abdomen appears normal, Bowel sounds: normal, in all quadrants, Palpation: soft, in all quadrants, moderate abdominal tenderness, in the epigastric area, right upper quadrant and left upper quadrant. 07:07 Back: pain, that is moderate, of the lumbar area, left mid back and right mid back. Vital Signs: 09/05 12:19 BP 123 / 63; Pulse 72; Resp 16; Temp 98.0(O); Pulse Ox 100% on R/A; Weight 72.57 kg; hj Height 5 ft. 0 in. (152.40 cm); Pain 7/10; 14:16 BP 123 / 61; Pulse 60; Resp 18; Pulse Ox 99% on R/A; aj1 15:05 BP 125 / 62; Pulse 70; Resp 21; Pulse Ox 97% on R/A; aj1 16:00 BP 112 / 73 LA (auto/reg); Pulse 63; Temp 98.4; Pulse Ox 100% ; Pain 6/10; jp3 12:19 Body Mass Index 31.25 (72.57 kg, 152.40 cm) MDM: 12:45 Patient medically screened. sd 09/06 07:09 Differential diagnosis: abd pain that radiates to back pt s/p cholecystectomy. will wa eval to r/o pancreatitis, ductal blockage causing hepatitis, pyelonephritis, kidney stones. will place IV. treat symptoms with fluids and meds and reassess. Data reviewed: vital signs, nurses notes, lab test result(s), radiologic studies. Test interpretation: by ED physician or midlevel provider: all labs noted within nml limits. upper abd US and CT noted without significant abnml. Medical screen evaluation completed. EMTALA emergency medical condition absent. Response to treatment: the patient's symptoms have markedly improved after treatment. ED course: pt improved significantly within the ED. work up essentially negative. will d/c with meds and have f/u with GI for further eval. pt understands to return immediately for any drastic worsening of her illness. 09/05 13:02 Order name: Basic Metabolic Panel sd 09/05 13:02 Order name: CBC with Diff sd 09/05 13:02 Order name: Creatinine for Radiology; Complete Time: 15:42 sd 09/05 13:02 Order name: Hepatic Function; Complete Time: 14:29 sd 09/05 13:02 Order name: Lipase; Complete Time: 14:29 sd 09/05 13:03 Order name: Basic Metabolic Panel; Complete Time: 14:29 [facility] 09/05 13:03 Order name: CBC with Automated Diff; Complete Time: 15:42 [facility] 09/05 13:03 Order name: US Abdomen Limited; Complete Time: 14:29 sd 09/05 13:04 Order name: CT Abd/Pelvis - Without Contrast; Complete Time: 14:28 sd 09/05 13:22 Order name: Urine Dipstick--Ancillary (enter results); Complete Time: 14:28 09/05 13:22 Order name: Urine --Ancillary (enter results); Complete Time: 14:28 09/05 12:22 Order name: Urine Dipstick-Ancillary (obtain specimen); Complete Time: 13:57 09/05 12:22 Order name: Urine Test (obtain specimen); Complete Time: 13:57 09/05 13:02 Order name: IV Saline Lock; Complete Time: 13:57 sd 09/05 13:02 Order name: Labs collected and sent; Complete Time: 13:57 sd Administered Medications: 09/05 14:14 Drug: Pepcid 20 mg Route: IVP; Site: right antecubital; aj1 16:25 Follow up: Response: No adverse reaction aj1 14:15 Drug: fentaNYL (PF) 50 mcg Route: IVP; Site: right antecubital; aj1 16:25 Follow up: Response: No adverse reaction; Pain is decreased aj1 14:15 Drug: Zofran 2 mg Route: IVP; Site: right antecubital; aj1 16:25 Follow up: Response: No adverse reaction aj1 Disposition: 09/05/18 15:54 Discharged to Home. Impression: Upper abdominal pain, unspecified, Vomiting, upper and mid back pain. - Condition is Stable. - Discharge Instructions: Nausea and Vomiting, Adult, [id number], Abdominal Pain, Adult, [id number]. - Prescriptions for Zofran 4 mg Oral Tablet - take 1 tablet by ORAL route every 12 hours As needed; 20 tablet. Pepcid 20 mg Oral Tablet - take 1 tablet by ORAL route once daily for 10 days; 10 tablet. Flagyl 500 mg Oral Tablet - take 1 tablet by ORAL route every 12 hours for 7 days; 14 tablet. Cipro 500 mg Oral Tablet - take 1 tablet by ORAL route every 12 hours for 7 days; 14 tablet. - Medication Reconciliation Form, Thank You Letter, Antibiotic Education, Prescription Opioid Use form. - Follow up: Sarmad Serrato MD; When: 2 - 3 days; Reason: Recheck today's complaints. - Problem is new. - Symptoms have improved. - Notes: take tylenol for pain as needed. follow up with the [facility] doctor. Dr. Serrato within 2-3 days for further evaluation. Signatures: Dispatcher [employer] EDMS Abbey Patterson RN RN aj1 Behzad Morton RN RN Sarmad Lynch MD MD wa Corrections: (The following items were deleted from the chart) 16:34 15:54 09/05/2018 15:54 Discharged to Home. Impression: Upper abdominal pain, aj1 unspecified; Vomiting; upper and mid back pain. Condition is Stable. Forms are Medication Reconciliation Form, Thank You Letter, Antibiotic Education, Prescription Opioid Use. Follow up: Sarmad Serrato; When: 2 - 3 days; Reason: Recheck today's complaints. Problem is new. Symptoms have improved. wa
== END 2018-09-05 16:34 | disposition home or self-care (01) ==
LOC: ER 12:13
DX: R11.10 Vomiting, unspecified (principal); M54.9 Dorsalgia, unspecified; Z88.6 Allergy status to analgesic agent
CPT/HCPCS: 36415; 74176; 76705; 80048; 80076; 81003; 81025; 83690; 85025; 96374; 96375; 99284; J2405; J3010

== ENCOUNTER 2019-07-06 12:35 | Emergency (ER) | payer SELFPAY ==
[2019-07-06] MEDS ORDERED: DICYCLOMINE HCL 10 MG CAP ONE (13:19)
[2019-07-06] MEDS ORDERED: NA CHLORIDE 0.9% 1,000 ML ONE (13:19)
[2019-07-06] MEDS ORDERED: ONDANSETRON 4 MG/2 ML VIAL ONE (13:19)
[2019-07-06 13:56] LABS: Absolute Lymphocytes (CBC) 1.5 K/uL (0.7-4.9); Basophils % 0.6 % (0-1.3); Hematocrit 42.1 % (36.0-45.0); Lymphocytes % 19.8 % (15.3-44.8); RBC Red Blood Cell Count 5.15 M/uL (3.86-4.86)
[2019-07-06 14:15] LABS: ALT/SGPT 42 U/L (12-78); AST/SGOT 20 U/L (15-37); Albumin 3.6 g/dL (3.4-5.0); Alkaline Phosphatase 85 U/L (45-117); BUN Blood Urea Nitrogen 9 mg/dL (7-18); Bicarbonate 27 mmol/L (21-32); Bilirubin Direct 0.1 mg/dL (0-0.2); Bilirubin Total 0.6 mg/dL (0.2-1.0); Glucose Level 98 mg/dL (74-106); Lipase 90 U/L (73-393); Potassium 3.9 mmol/L (3.5-5.1); Sodium Level 137 mmol/L (136-145)
--- NOTE | 2019-07-06 14:41 | RAD REPORT ---
EXAM DESCRIPTION: CTAbdomen Pelvis W Contrast - 07/06/2019 2:32 pm CLINICAL HISTORY: Abdominal pain. abdominal pain COMPARISON: Abdomen Pelvis W Contrast dated 03/29/2016; Abdomen Pelvis W Contrast dated 6 TECHNIQUE: Biphasic CT imaging of the abdomen and pelvis was performed with 100 ml non-ionic IV cont rast. All CT scans are performed using dose optimization technique as appropriate and may include automated exposure control or mA/KV adjustment according to patient size. FINDINGS: The lung bases are clear. Cholecystectomy clips. The liver, spleen, pancreas, adrenal glands and kidneys are within normal limits. No bowel obstruction, free air, free fluid or abscess. The appendix is normal. No evidence of signi ficant lymphadenopathy. No suspicious bony findings. IMPRESSION: No acute intra-abdominal or pelvic finding.
[2019-07-06] MEDS ORDERED: KETOROLAC 30 MG/ML INJ ONE (14:49)
[2019-07-06] MEDS ORDERED: FENTANYL CITR 100 MCG/2 ML ONE (14:56)
--- NOTE | 2019-07-06 15:35 | ER ---
Nurse's Notes [facility] Name: Suzanne Anthony Age: 29 yrs Sex: Female : 1990 Arrival Date: 07/06/2019 Time: 12:38 Bed 7 Private MD: Diagnosis: Generalized abdominal pain;Vomiting;Diarrhea, unspecified Presentation: 07/05 12:52 Chief complaint: Left sided abdominal pain 7/10 and N/V/D x 2 days. Not tolerating hb fluids. Coronavirus screen: Proceed with normal triage. Ebola Screen: No symptoms or risks identified at this time. Initial Sepsis Screen: Does the patient meet any 2 criteria? HR > 90 bpm. Does the patient have a suspected source of infection? No. Patient's initial sepsis screen is negative. Risk Assessment: Do you want to hurt yourself or someone else? Patient reports no desire to harm self or others. Onset of symptoms was July 05, 2019. 12:52 Method Of Arrival: Ambulatory hb 12:52 Acuity: AMANDA 3 hb Historical: - Allergies: 12:54 Ibuprofen; hb 12:54 Naproxen; hb 12:54 Red Dye; hb - PMHx: 12:54 Ovarian cyst; sciatica; hb - PSHx: 12:54 Cholecystectomy; hb - Immunization history:: Adult Immunizations up to date. - Social history:: Smoking status: Patient reports the use of cigarette tobacco products, denies chronic smoking, but will smoke occasionally. Screenin:25 Abuse screen: Denies threats or abuse. Nutritional screening: No deficits noted. em Tuberculosis screening: No symptoms or risk factors identified. Fall Risk None identified. Assessment: 13:25 General: Appears in no apparent distress. comfortable, Behavior is calm, cooperative, em appropriate for age, Denies fever. Pain: Complains of pain in left upper quadrant and left lower quadrant Pain currently is 7 out of 10 on a pain scale. Pain began 2-3 days ago. Neuro: Level of Consciousness is awake, alert, obeys commands, Oriented to person, place, time, situation, Appropriate for age. Cardiovascular: Capillary refill < 3 seconds Patient's skin is warm and dry. Respiratory: Airway is patent Respiratory effort is even, unlabored, Respiratory pattern is regular, symmetrical. GI: Abdomen is round non-distended, Bowel sounds present X 4 quads. Abd is soft X 4 quads Abdomen is tender to palpation in left upper quadrant and left lower quadrant Reports diarrhea, nausea, vomiting. : Denies burning with urination. Derm: Skin is intact, is healthy with good turgor, Skin is pink, warm \T\ dry. Musculoskeletal: Capillary refill < 3 seconds, Range of motion: intact in all extremities. 14:33 Reassessment: reports pain medication has not worked, provider notified. em 15:30 Reassessment: Patient appears in no apparent distress at this time. Patient and/or em family updated on plan of care and expected duration. Pain level reassessed. Patient is alert, oriented x 3, equal unlabored respirations, skin warm/dry/pink. Patient states feeling better. Patient states symptoms have improved. Vital Signs: 12:52 BP 143 / 93; Pulse 97; Resp 16; Temp 97.4; Pulse Ox 98% on R/A; Weight 74.84 kg; Height hb 5 ft. (152.40 cm); Pain 7/10; 14:30 BP 111 / 68; Pulse 78; Resp 18; Pulse Ox 99% on R/A; Pain 7/10; em 15:30 BP 102 / 56; Pulse 58; Resp 16; Pulse Ox 100% on R/A; em 12:52 Body Mass Index 32.22 (74.84 kg, 152.40 cm) hb ED Course: 12:38 Patient arrived in ED. mr 12:45 Karthik Jaramillo PA is PHCP. jmm 12:45 Jose Palma MD is Attending Physician. [facility] 12:54 Triage completed. hb 12:54 Arm band placed on. hb 13:03 Mal Prasad, RN is Primary Nurse. em 13:25 Patient has correct armband on for positive identification. Bed in low position. Call em light in reach. Adult w/ patient. Pulse ox on. NIBP on. 13:25 Initial lab(s) drawn, by me, sent to lab. Inserted saline lock: 22 gauge in right em forearm, using aseptic technique. Blood collected. 14:32 CT Abd/Pelvis - IV Contrast Only In Process Unspecified. EDMS 16:06 No provider procedures requiring assistance completed. IV discontinued, intact, em bleeding controlled, No redness/swelling at site. Pressure dressing applied. Administered Medications: 13:40 Drug: NS 0.9% 1000 ml Route: IV; Rate: 1 bolus; Site: right antecubital; em 16:07 Follow up: IV Status: Completed infusion; IV Intake: 1000ml em 13:40 Drug: Zofran (Ondansetron) 4 mg Route: IVP; Site: right forearm; em 14:30 Follow up: Response: No adverse reaction; Marked relief of symptoms; Nausea is decreasedem 13:55 Drug: Bentyl 20 mg Route: PO; em 14:30 Follow up: Response: No adverse reaction; Pain is unchanged, physician notified em 15:02 Drug: fentaNYL (PF) 25 mcg Route: IVP; Site: right forearm; em 15:30 Follow up: Response: No adverse reaction; Marked relief of symptoms; Pain is decreased; em RASS: Alert and Calm (0) Intake: 16:07 IV: 1000ml; Total: 1000ml. em Outcome: 15:35 Discharge ordered by . sean 16:06 Discharged to home ambulatory, with family. em 16:06 Condition: good 16:06 Discharge instructions given to patient, Instructed on discharge instructions, follow up and referral plans. medication usage, Demonstrated understanding of instructions, follow-up care, medications, Prescriptions given X 2. 16:09 Patient left the ED. em Signatures: Dispatcher [employer] Karthik Bernard PA PA jmm Rivera, Mary mr Munoz, Edgar, RN RN Amber Hodges RN RN
--- NOTE | 2019-07-06 15:36 | EDPHYS ---
Physician Documentation [facility] Name: Suzanne Anthony Age: 29 yrs Sex: Female : 1990 Arrival Date: 07/06/2019 Time: 12:38 Bed 7 Private MD: ED Physician Jose Palma HPI: 07/05 12:46 This 29 yrs old Female presents to ER via Ambulatory with complaints of jmm Abdominal Pain, Vomiting/Diarrhea. 12:46 The patient presents with abdominal pain in the epigastric area, in the left upper jmm quadrant, in the left lower quadrant. Onset: The symptoms/episode began/occurred gradually, 3 day(s) ago. The symptoms do not radiate. Associated signs and symptoms: Pertinent positives: nausea and vomiting, diarrhea, Pertinent negatives: fever. The symptoms are described as achy, crampy. This is a 29 year old female with no chronic medical conditions that presents to the ED with complaints of diarrhea for the past 2 nights with vomiting beginning this morning along with worsening abdominal pain. Denies cough, shortness of breath. Historical: - Allergies: 12:54 Ibuprofen; hb 12:54 Naproxen; hb 12:54 Red Dye; hb - PMHx: 12:54 Ovarian cyst; sciatica; hb - PSHx: 12:54 Cholecystectomy; hb - Immunization history:: Adult Immunizations up to date. - Social history:: Smoking status: Patient reports the use of cigarette tobacco products, denies chronic smoking, but will smoke occasionally. ROS: 12:46 Constitutional: Negative for fever, chills, and weight loss, Cardiovascular: Negative jmm for chest pain, palpitations, and edema, Respiratory: Negative for shortness of breath, cough, wheezing, and pleuritic chest pain. 12:46 Abdomen/GI: Positive for abdominal pain, nausea and vomiting, diarrhea. 12:46 All other systems are negative. Exam: 12:46 Constitutional: This is a well developed, well nourished patient who is awake, alert, jmm and in no acute distress. Head/Face: atraumatic. Eyes: EOMI, no conjunctival erythema appreciated ENT: Moist Mucus Membranes Neck: Trachea midline, Supple Chest/axilla: Normal chest wall appearance and motion. Cardiovascular: Regular rate and rhythm. No edema appreciated Respiratory: Normal respirations, no respiratory distress appreciated 12:46 Back: Normal ROM Skin: General appearance color normal MS/ Extremity: Moves all extremities, no obvious deformities appreciated, no edema noted to the lower extremities Neuro: Awake and alert, normal gait Psych: Behavior is normal, Mood is normal, Patient is cooperative and pleasant 12:46 Abdomen/GI: Inspection: abdomen appears normal, Bowel sounds: normal, Palpation: soft, mild abdominal tenderness, in the left upper quadrant and left lower quadrant. Vital Signs: 12:52 BP 143 / 93; Pulse 97; Resp 16; Temp 97.4; Pulse Ox 98% on R/A; Weight 74.84 kg; Height hb 5 ft. (152.40 cm); Pain 7/10; 14:30 BP 111 / 68; Pulse 78; Resp 18; Pulse Ox 99% on R/A; Pain 7/10; em 15:30 BP 102 / 56; Pulse 58; Resp 16; Pulse Ox 100% on R/A; em 12:52 Body Mass Index 32.22 (74.84 kg, 152.40 cm) hb MDM: 12:46 Patient medically screened. viviana 15:33 Data reviewed: vital signs, nurses notes. Counseling: I had a detailed discussion with sean the patient and/or guardian regarding: the historical points, exam findings, and any diagnostic results supporting the discharge/admit diagnosis, lab results, radiology results, the need for outpatient follow up, to return to the emergency department if symptoms worsen or persist or if there are any questions or concerns that arise at home. ED course: CT negative. Patient is advised to follow up with pcp and otherwise given strict return precautions. Patient understood and agrees with the plan of care. . 07/05 13:00 Order name: Basic Metabolic Panel; Complete Time: 14:48 [facility] 07/05 13:00 Order name: CBC with Diff; Complete Time: 14:48 [facility] 07/05 13:00 Order name: Creatinine for Radiology; Complete Time: 14:11 [facility] 07/05 13:00 Order name: Hepatic Function; Complete Time: 14:48 [facility] 07/05 13:00 Order name: Lipase; Complete Time: 14:48 [facility] 07/05 13:37 Order name: Urine Dipstick--Ancillary (enter results) em1 07/05 13:00 Order name: IV Saline Lock; Complete Time: 13:35 [facility] 07/05 13:00 Order name: Labs collected and sent; Complete Time: 13:35 [facility] 07/05 13:03 Order name: CT Abd/Pelvis - IV Contrast Only; Complete Time: 14:48 [facility] 07/05 13:37 Order name: Urine --Ancillary (enter results) em1 07/05 13:00 Order name: Urine Dipstick-Ancillary (obtain specimen); Complete Time: 13:31 [facility] 07/05 13:00 Order name: Urine Test (obtain specimen); Complete Time: 13:31 [facility] Administered Medications: 13:40 Drug: NS 0.9% 1000 ml Route: IV; Rate: 1 bolus; Site: right antecubital; em 16:07 Follow up: IV Status: Completed infusion; IV Intake: 1000ml em 13:40 Drug: Zofran (Ondansetron) 4 mg Route: IVP; Site: right forearm; em 14:30 Follow up: Response: No adverse reaction; Marked relief of symptoms; Nausea is decreasedem 13:55 Drug: Bentyl 20 mg Route: PO; em 14:30 Follow up: Response: No adverse reaction; Pain is unchanged, physician notified em 15:02 Drug: fentaNYL (PF) 25 mcg Route: IVP; Site: right forearm; em 15:30 Follow up: Response: No adverse reaction; Marked relief of symptoms; Pain is decreased; em RASS: Alert and Calm (0) Disposition: 07/06 11:24 Co-signature as Attending Physician, Jose Palma MD I agree with the assessment and viviana plan of care. Disposition: 07/06/19 15:35 Discharged to Home. Impression: Generalized abdominal pain, Vomiting, Diarrhea, unspecified. - Condition is Stable. - Discharge Instructions: Food Choices to Help Relieve Diarrhea, Adult, Diarrhea, Adult, Nausea and Vomiting, Adult. - Prescriptions for Zofran ODT 4 mg Oral tablet,disintegrating - place 1 tablet by TRANSLINGUAL route every 4-6 hours; 20 tablet. Bentyl 20 mg Oral Tablet - take 2 tablet by ORAL route every 6 hours As needed; 40 tablet. - Medication Reconciliation Form, Thank You Letter, Antibiotic Education, Prescription Opioid Use, Work release form form. - Follow up: Private Physician; When: 2 - 3 days; Reason: Recheck today's complaints, Continuance of care, Re-evaluation by your physician. Signatures: Dispatcher [employer] Jose Richards MD MD cha Mickail, Joel, PA PA jmm Munoz, Edgar, RN RN Amber Hodges RN RN Corrections: (The following items were deleted from the chart) 07/05 16:09 15:35 07/06/2019 15:35 Discharged to Home. Impression: Generalized abdominal pain; em Vomiting; Diarrhea, unspecified. Condition is Stable. Forms are Medication Reconciliation Form, Thank You Letter, Antibiotic Education, Prescription Opioid Use. Follow up: Private Physician; When: 2 - 3 days; Reason: Recheck today's complaints, Continuance of care, Re-evaluation by your physician. sean
[2019-07-06 16:19] LABS: Urine Blood NEGATIVE (NEG); Urine Glucose NEGATIVE (NEG); Urine Protein NEGATIVE (NEG); Urine Specific Gravity >1.030 (1.005-1.030)
[2019-07-06 16:28] VITALS: TEMP 97.4
[2019-07-06 16:29] VITALS: BP 102/56; O2SAT 100
== END 2019-07-06 16:09 | disposition home or self-care (01) ==
LOC: ER 12:35
DX: R11.2 Nausea with vomiting, unspecified (principal); R19.7 Diarrhea, unspecified; Z72.0 Tobacco use; Z88.6 Allergy status to analgesic agent; Z91.02 Food additives allergy status
CPT/HCPCS: 36415; 74177; 80048; 80076; 81003; 81025; 83690; 85025; 96361; 96374; 96375; 99284; J2405; J3010; J7030; Q9967

== ENCOUNTER 2021-12-30 13:27 | Emergency (ER) | payer OTHER, SELFPAY ==
--- OUTSIDE RECORDS SUMMARY | 2021-12-30 13:30 | XMS REPORT | Continuity of Care Document ---
:1990 Author Organization [facility] t Address [address] [place] [address] Dr. [address]. [address] [place] [address] Care Team Providers Name Role Phone Rufino Murray MD Primary Care Physician RUFINO MURRAY Attending Clinician Unavailable AGUS COLVIN Attending Clinician Unavailable Taz Harris MD Attending Clinician [facility] Attending Clinician Unavailable Rufino Murray MD Attending Clinician RUFINO MURRAY Admitting Clinician Unavailable Payers Payer Name Policy Type Policy Number Effective Date Expiration Date S linda [facility] [id number] 2020 00:00:00 [place] [id number] 2020 00:00:00 [facility] [id number] 2017 CHOICE MEDICAID 00:00:00 Problems Condition Condition Condition Status Onset Resolution Last Treating Co mments Source Name Details Category Date Date Treatment Clinician Date GDM, class GDM, class Disease Active U nivers A2 A2 5-06 ity of 00:00: [place] 00 Medical Branch Fall (on) Fall (on) Disease Active Uni vers (from) (from) 3-29 ity of other other 00:00: [place] stairs and stairs and 00 Me dical steps, steps, Branch initial initial encounter encounter Acute Acute Disease Active Univers midline midline 3-08 ity of low back low back 00:00: [place] pain with pain with 00 Medi lobito bilateral bilateral Bran ch sciatica sciatica Mild Mild Disease Active Univers intermitte intermitte 2-03 it y of nt asthma nt asthma 00:[place] without without 00 Medical complicati complicati Br anch on on High-risk High-risk Disease Active Uni vers 2-03 ity of in third in third 00:00: [place] trimester trimester 00 [facility] Encounter Encounter Disease Active Uni vers for tubal for tubal 2-03 ity of ligation ligation 00:00: [place] counseling counseling 00 Md dical Branch Round Round Disease Active Univers ligament ligament 2-03 ity of pain pain 00:00: [place] 00 Medical Branch History of History of Disease Active U nivers depression depression 6-13 it y of 00:00: [place] Medical Branch PUPP PUPP Disease Active Univers (pruritic (pruritic 3-15 ity of urticarial urticarial [place] pap[place] papules 00 [facility] and and Branch plaques of plaques of ) ) Obesity Obesity Disease Active 2016-03 Univers (BMI (BMI 1-07 ity of 30-39.9) 30-39.9) 00:00: [place] 00 [facility] Disease Resolve 2020-07-08 2020-07-08 Univers uterine uterine d 4-26 00:00:00 19:54:07 ity of contractio contractio [place] in 00 [facility] third third Branch trimester, trimester, antepartum antepartum 32 weeks 32 weeks Disease Resolve 2020-06-20 2020-06-20 Univers gestation gestation d 3-29 00:00:00 15:37:20 ity of of of 00:00: [place] 00 [facility] Postmaturi Postmaturi Disease Resolve 2020-02-13 2020-02-13 Univers ty ty d 6-13 00:00:00 20:28:39 ity of , , 00:[place] 40-42 40-42 00 Medical weeks weeks Branch gestation gestation 40 weeks 40 weeks Disease Resolve 2016-032020-02-13 2020-02-13 Univers gestation gestation d 1-07 00:00:00 20:28:32 ity of of of 00:00: [place] 00 [facility] Fever in Fever in Disease Resolve 2017-08-18 2017-08-18 Univers adult adult d 07-01 00:00:00 17:31:51 ity of 00:00: [place] 00 Medical Branch Maternal Maternal Disease Resolve 2017-08-18 2017-08-18 Univers care for care for d 07-01 00:00:00 17:31:55 it y of 00:00: [place] tachycardi tachycardi 00 Me dical a during a during Branch Pyelonephr Pyelonephr Disease Resolve 2017-08-18 2017-08-18 Univers itis itis d 07-01 00:00:00 17:32:06 [place]y of affecting affecting 00:00[place] Med[place] lob[place] in third in third Branch trimester trimester Gestationa Gestationa Disease Resolve 2017-08-18 2017-08-18 Univers l dyspnea l dyspnea d 3-15 00:00:00 17:31:40 ity of in second in second 00:[place] 00 Medi lobito Branch Vasovagal Vasovagal Disease Resolve 2017-08-18 2017-08-18 Univers episode episode d 3-15 00:00:00 17:31:44 ity of 00:00: [place] 00 Medical Branch Abdominal Abdominal Disease Resolve 2016-032017-08-18 2017-08-18 Univers pain in pain in d 03-14 00:00:00 17:31:31 ity of , , [place] first first 00 Medical trimester trimester Bran ch History of History of Disease Resolve 2016-032017-08-18 2017-08-18 Univers laparoscop laparoscop d 03-14 00:00:00 17:31:38 ity of ic ic 00:00: [place] cholecyste cholecyste 00 Me dical ctomy ctomy Branch Nexplanon Nexplanon Disease Resolve 2013-032017-01-13 2017-01-[address] d 0- 00:00:00 15:42:41 it y of 00:00: [place] 00 Medical Branch Allergies, Adverse Reactions, Alerts Allergy Allergy Status Severity Reaction(s) Onset Inactive Treating Comm ents Source Name Type Date Date Clinician IBUPROFE DRUG Active Rash 2013-03 Univers N INGREDI 0-21 ity of 00:00: [place] 00 Medical Branch NAPROXEN DRUG Active Other-Cmnt 2013-03 Univ ers INGREDI 0-21 ity of 00:00: [place] 00 Medical Branch RED DYE DRUG Active Other-Cmnt 2013-03 Unive rs INGREDI 0-21 ity of 00:00: [place] 00 Medical Branch Ibuprofe Propensi Active Rash 2013-03 Univer s n ty to 0-21 ity of adverse 00:00: [place] reaction 00 Medical s Branch Naproxen Propensi Active Rash 2013-03 Univer s ty to 0-21 ity of adverse 00:00: [place] reaction 00 Medical s Branch Red Dye Propensi Active Other - See 2013-03 Red dye U nivers ty to comments 0-21 #40 : pt ity of adverse 00:00: states [place] reaction 00 gives her Medic al s extreme Branch "bad" headaches . Social History Social Habit Start Date Stop Date Quantity Comments Source ASSERTION 2019-11-01 University of 00:00:00 [facility] Exposure to Not sure [facility] SARS-CoV-2 [facility] (event) Branch History of Cigarette Smoker Universi ty of tobacco use [facility] Tobacco use and 2020-07-11 2020-07-11 Never used Universit y of exposure 00:00:00 00:00:00 [facility] Alcohol intake 2020-07-11 2020-07-11 Current University 00:00:00 00:00:00 non-drinker of [facility] alcohol (finding) Branch Sex Ass[birth year] At [birth year] Universit y of 00:00:00 00:00:00 [facility] Smoking Status Start Date Stop Date Source Former smoker 2020-07-11 00:00:00 2020-07-11 00:00:00 Universi ty of [facility] Medications Ordered Filled Start Stop Current Ordering Indication Dosage Frequency Signature Comments Components Source Medication Medication Date Date Medication? Clinician (SIG) Name Name glyBURIDE Yes GDM, class 2.5mg Take 1 Univers 2.5 mg 5-03 A2 tablet by ity of tablet 00:00: mouth 00 every Medical evening. Branch glyBURIDE Yes GDM, class 2.5mg Take 1 Univers 2.5 mg 5-03 A2 tablet by ity of tablet 00:00: mouth 00 every Medical evening. Branch glyBURIDE 2021-0 Yes GDM, class 2.5mg Take 1 Univers 2.5 mg 5-03 A2 tablet by ity of tablet 00:00: mouth [place] 00 every Medical evening. Branch Blood-Gluco Yes Use as Univ ers se Meter 4-12 directed ity of Kit 00:00: [place] 00 Medical Branch lancets 25 0 Yes Check Univer s gauge Misc 4-12 blood ity of 00:00: glucose four times Medical daily Branch blood sugar Yes Check Unive rs diagnostic 4-12 blood ity of strip 00:00: glucose [place] 00 four times Medical daily Branch Alcohol Yes Apply to Univer s Swabs PadM 4-12 area(s) 4 ity of 00:00: (four) [place] 00 times Medical daily. Branch Blood-Gluco Yes Use as Univ ers se Meter 4-12 directed ity of Kit 00:00: [place] 00 Medical Branch lancets 25 Yes Check Univer s gauge Misc 4-12 blood ity of 00:00: glucose [place] 00 four times Medical daily Branch blood sugar Yes Check Unive rs diagnostic 4-12 blood ity of strip 00:00: glucose [place] 00 four times Medical daily Branch Alcohol Yes Apply to Univer s Swabs PadM 4-12 area(s) 4 ity of 00:00: (four) [place] 00 times Medical daily. Branch Blood-Gluco Yes Use as Univ ers se Meter 4-12 directed ity of Kit 00:00: [place] 00 Medical Branch lancets 25 0 Yes Check Univer s gauge Misc 4-12 blood ity of 00:00: glucose [place] 00 four times Medical daily Branch blood sugar 0 Yes Check Unive rs diagnostic 4-12 blood ity of strip 00:00: glucose 00 four times Medical daily Branch Alcohol 0 Yes Apply to Univer s Swabs PadM 4-12 area(s) 4 ity of 00:00: (four) [place] 00 times Medical daily. Branch [id number] Yes Take by Uni vers 3-dha-epa-f 3-30 mouth. ity of bj oil 22:05: [place] ( 03 Medical GUMMY) 400 Branch mcg-35 mg -25 mg-5 mg Chew [id number] Yes Take by Uni vers 3-dha-epa-f 3-30 mouth. ity of bj oil 22:05: [place] ( 03 Medical GUMMY) 400 Branch mcg-35 mg -25 mg-5 mg Chew [id number] Yes Take by Un kamlesh 3-dha-epa-f 3-30 mouth. ity of bj oil 22:05: [place] ( 03 Medical GUMMY) 400 Branch mcg-35 mg -25 mg-5 mg Chew albuterol 2019- Yes High-risk 2{puff} Inhale 2 Univers 90 2-08 Puffs ity of mcg/actuati 00:00: in second every 6 [place] on inhaler 00 trimester (six) Med ical hours as Branch needed for Wheezing, Shortness of Breath, Bronchospa sm or Chest tightness. albuterol 2019-03 Yes High-risk 2{puff} Inhale 2 Univers 90 2-08 Puffs ity of mcg/actuati 00:00: in second every 6 [place] on inhaler 00 trimester (six) Med ical hours as Branch needed for Wheezing, Shortness of Breath, Bronchospa sm or Chest tightness. albuterol 2019-03 Yes High-risk 2{puff} Inhale 2 Univers 90 2-08 Puffs ity of mcg/actuati 00:00: in second every 6 [place] on inhaler 00 trimester (six) Med ical hours as Branch needed for Wheezing, Shortness of Breath, Bronchospa sm or Chest tightness. triamcinolo 2019-03 Yes PUPPP Apply to U nivers ne 2- (pruritic area(s) 2 ity o f acetonide 00:00: urticarial (two) [place] 0.1 % cream 00 papules and times Medical plaques of daily. Branch ) triamcinolo 2019-03 Yes PUPPP Apply to U nivers ne 2- (pruritic area(s) 2 ity o f acetonide 00:00: urticarial (two) [place] 0.1 % cream 00 papules and times Medical plaques of daily. Branch ) triamcinolo 2019- Yes PUPPP Apply to U nivers ne 2- (pruritic area(s) 2 ity o f acetonide 00:00: urticarial (two) [place] 0.1 % cream 00 papules and times Medical plaques of daily. Branch ) Immunizations Ordered Filled Immunization Date Status Comments Danyell anguiano Immunization Name Name TDAP 2020-06-03 Completed University of 00:00:00 [facility] TDAP 2020-06-03 Completed University of 00:00:00 [facility] TDAP 2020-06-03 Completed University of 00:00:00 [facility] TDAP 2017-05-20 Completed University of 00:00:00 [facility] TDAP 2017-05-20 Completed University of 00:00:00 [facility] TDAP 2017-05-20 Completed University of 00:00:00 [facility] TDAP 2007-03-07 Completed University of 00:00:00 [facility] TDAP 2007-03-07 Completed University of 00:00:00 [facility] TDAP 2007-03-07 Completed University of 00:00:00 [facility] Vital Signs Vital Name Observation Time Observation Value Comments Source Systolic blood 2020-07-11 16:31:00 114 mm[Hg] [facility] Diastolic blood 2020-07-11 16:31:00 73 mm[Hg] [facility] Heart rate 2020-07-11 16:31:00 88 /min [facility] Body temperature 2020-07-11 16:31:00 36.83 Naya [facility] Respiratory rate 2020-07-11 16:31:00 18 /min [facility] Body height 2020-07-11 16:31:00 152.4 cm [facility] Body weight 2020-07-11 16:31:00 90.266 kg [facility] BMI 2020-07-11 16:31:00 38.86 kg/m2 [facility] Procedures Procedure Date / Time Performed Performing Clinician Danyell anguiano NON-STRESS TEST 2020-07-11 17:06:34 Rufino Murray [facility] Plan of Care Planned Activity Planned Date Details Comments Source Future Scheduled 2030-06-03 DTaP,Tdap,and Td [facility] Test 00:00:00 Vaccines (4 - Td) Medical Br anch [code = DTaP,Tdap,and Td Vaccines (4 - Td)] Future Scheduled 2030-06-03 [facility]ap,and Td [facility] Vaccines (4 - Td) Medical Br anch [code = DTaP,Tdap,and Td Vaccines (4 - Td)] Future Scheduled 2030-06-03 [facility]TaP[facility]dap,and Td [facility]:00 Vaccines (4 - Td) Medical Br anch [code = DTaP,Tdap,and Td Vaccines (4 - Td)] Future Scheduled 2023-02-05 Screening for [facility] Test 00:00:00 malignant neoplasm of Medica l Branch cervix (procedure) [code = 501191508] Future Scheduled 2023-02-05 Screening for [facility] Test 00:00:00 malignant neoplasm of Medica l Branch cervix (procedure) [code = 070755575] Future Scheduled 2023-02-05 Screening for [facility] Test 00:00:00 malignant neoplasm of Medica l Branch cervix (procedure) [code = 235363569] Future Scheduled 2021-02-11 Creatinine [facility] Test 00:00:00 measurement Medical Branch (procedure) [code = 88295881] Future Scheduled 2021-02-11 Creatinine [facility] Test 00:00:00 measurement Medical Branch (procedure) [code = 95661641] Future Scheduled 2020-12-31 Hemoglobin A1c [facility] Test 00:00:00 measurement Medical Branch (procedure) [code = 62813636] Future Scheduled 2020-12-31 Hemoglobin A1c [facility] Test 00:00:00 measurement Medical Branch (procedure) [code = 78092211] Future Scheduled 2020-11-06 INFLUENZA VACCINE Univer sity [facility] Test 00:00:00 (Season Ended) [code Medical Branch = INFLUENZA VACCINE (Season Ended)] Future Scheduled 2020-11-06 INFLUENZA VACCINE Univer sity [facility] Test 00:00:00 (Season Ended) [code Medical Branch = INFLUENZA VACCINE (Season Ended)] Future Scheduled 2020-11-06 [facility]00 (Season Ended) [code Medical Branch = INFLUENZA VACCINE (Season Ended)] Future Scheduled 2007-06-25 Diabetic foot [facility] Test 00:00:00 examination Medical Branch (regime/therapy) [code = 500451059] Future Scheduled 2007-06-25 Diabetic foot [facility] [place] Test 00:00:00 examination Medical Branch (regime/therapy) [code = 062095798] Future Scheduled 2005 SARS-CoV-2 (COVID-19) [facility] [place] Test 00:00:00 Vaccine (1) [code = Medical Branch SARS-CoV-2 (COVID-19) Vaccine (1)] Future Scheduled 2005 SARS-CoV-2 (COVID-19) [facility] [place] Test 00:00:00 Vaccine (1) [code = Medical Branch SARS-CoV-2 (COVID-19) Vaccine (1)] Future Scheduled 2005 SARS-CoV-2 (COVID-19) [facility] [place] Test 00:00:00 Vaccine (1) [code = Medical Branch SARS-CoV-2 (COVID-19) Vaccine (1)] Future Scheduled 2001 Depression screening [facility] [place] Test 00:00:00 (procedure) [code = Medical Branch 343822274] Future Scheduled 2001 Depression screening [facility] [place] Test 00:00:00 (procedure) [code = Medical Branch 737319068] Future Scheduled 2001 Depression screening [facility] [place] Test 00:00:00 (procedure) [code = Medical Branch 027798936] Future Scheduled 1999-06-25 Examination of retina [facility] [place] Test 00:00:00 (procedure) [code = Medical Branch 742762626] Future Scheduled 1999-06-25 Calculated low [facility] [place] Test 00:00:00 density lipoprotein Medical Branch cholesterol level (procedure) [code = 407100346] Future Scheduled 1999-06-25 Microalbumin [facility] [place] Test 00:00:00 measurement, urine, Medical Branch quantitative (procedure) [code = 270353149] Future Scheduled 1999-06-25 Examination of retina [facility] [place] Test 00:00:00 (procedure) [code = Medical Branch 116023070] Future Scheduled 1999-06-25 Calculated low [facility] [place] Test 00:00:00 density lipoprotein Medical Branch cholesterol level (procedure) [code = 873812870] Future Scheduled 1999-06-25 Microalbumin [facility] [place] Test 00:00:00 measurement, urine, Medical Branch quantitative (procedure) [code = 332632472] Future Scheduled 1995-06-25 PNEUMOCOCCAL 0-64 [facility]:00 YEARS COMBINED SERIES Medica l Branch (1 of 1 - PPSV23) [code = PNEUMOCOCCAL 0-64 YEARS COMBINED SERIES (1 of 1 - PPSV23)] Future Scheduled 1995-06-25 PNEUMOCOCCAL 0-64 Univer [facility] Test 00:00:00 YEARS COMBINED SERIES Medica l Branch (1 of 1 - PPSV23) [code = PNEUMOCOCCAL 0-64 YEARS COMBINED SERIES (1 of 1 - PPSV23)] Future Scheduled 1995-06-25 PNEUMOCOCCAL 0-64 Univer [facility] Test 00:00:00 YEARS COMBINED SERIES Medica l Branch (1 of 1 - PPSV23) [code = PNEUMOCOCCAL 0-64 YEARS COMBINED SERIES (1 of 1 - PPSV23)] Encounters Start End Encounter Admission Attending Care Care Encounter Source Date/Time Date/Time Type Type Clinicians Facility Department ID 2021-01-06 Outpatient RUFINO 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 [facility]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 [id number] [facility] P [facility] GIUSEPPE [id number] [facility] 18:22:[facility]-01-05 [facility] P [facility] GIUSEPPE [id number] [facility] 09:38:[facility] 2021-01-05 Outpatient P [facility] GIUSEPPE [id number] [facility] 09:18:[facility] 2020-12-19 2020-12-19 Outpatient RUFINO MONTALVO [facility] [id number] Univers 13:30:00 [facility] 2020-09-18 2020-09-18 Outpatient RUFINO MONTALVO [facility] [id number] Univers 13:00:00 [facility] 2020-09-12 2020-09-12 Outpatient R MARII [facility] [id number] Univers 16:00:00 16:00:00 AGUS [facility] 2020-09-02 2020-09-02 Outpatient RUFINO MONTALVO [facility] [id number] Univers 08:45:00 08:45:00 ity [facility] 2020-08-28 2020-08-28 Outpatient R RUFINO MURRAY [facility] [id number] Univers 11:30:00 11:30:00 ity of [facility] 2020-08-14 2020-08-14 Outpatient R RUFINO MURRAY [facility] [id number] Univers 13:15:00 13:15:00 ity [facility] 2020-07-16 2020-07-16 Outpatient R RUFINO MURRAY [facility] [id number] Univers 10:00:00 10:00:00 ity [facility] 2020-07-15 2020-07-15 Outpatient [facility] [id number] Univers 13:00:00 13:00:00 ity [facility] 2020-07-12 2020-07-12 Outpatient P [facility] [id number] Univers 11:00:00 11:00:00 ity [facility] 2020-07-11 2020-07-11 Outpatient R [facility] [id number] Univers 11:00:00 11:00:00 ity [facility] 2020-07-08 2020-07-08 Outpatient R RUFINO MURRAY [facility] [id number] Univers 14:15:00 14:15:00 ity [facility] 2020-07-01 2020-07-01 Outpatient R RUFINO MURRAY [facility] [id number] Univers 16:15:00 16:15:00 ity [facility] 2020-06-27 2020-06-27 Outpatient R RUFINO MURRAY [facility] [id number] Univers 09:00:00 09:00:00 ity [facility] 2020-06-20 2020-06-20 Outpatient R RUFINO MURRAY [facility] [id number] Univers 09:15:00 09:15:00 ity [facility] 2020-06-17 2020-06-17 [facility] [id number] Univers 09:00:00 09:00:00 ity [facility] 2020-06-17 2020-06-17 Outpatient R RUFINO MURRAY [facility] [id number] Univers 09:00:00 09:00:00 ity [facility] 2020-06-05 2020-06-05 Outpatient [facility] [id number] Univers 08:00:00 08:00:00 ity [facility] 2020-06-03 2020-06-03 Outpatient [facility] [id number] Univers 14:15:00 14:15:00 [facility] 2020-05-27 2020-05-27 Outpatient R [facility] [id number] Univers 11:15:00 11:15:00 [facility] 2020-05-13 2020-05-13 Outpatient R TERRI RUFINO [facility] [id number] Univers [facility]:00[facility] 2020-[facility] 2020-05-08 Outpatient R TERRI [facility] [id number] Univers 11:00:00 11:00:00 ity [facility] 2020-04-10 2020-04-10 Outpatient R [facility] [id number] Univers 10:15:00 10:15:[facility] 2020-03-15 2020-03-15 Out[facility] [id number] Univers 13:00:00 [facility] 2020-03-12 2020-03-12 Outpatient R [facility] [id number] Univers 13:00:00 13:00:00 [facility] 2020-02-13 2020-02-13 Outpatient R TERRI RUFINO [facility] [id number] Univers 16:15:00 [facility] 2020-02-12 2020-02-12 Outpatient R TERRI RUFINO [facility] [id number] Univers 08:45:00 08:45:[facility] 2020-02-06 2020-02-06 Outpatient R TERRI [facility] [id number] Univers 14:30:00 14:30:00 [facility]y [facility] [place] [facility] Results Test Description Test Time Test Comments Results Result Sour e Comments NON-STRESS Reactive and Univer sity of TEST 6 [facility] 17:07:04 quiescent Rufino Murray MD 07/11/2020 12:06 PM NON-STRESS 0 Reactive and Univer sity of TEST 6 [facility] 17:07:04 quiescent Rufino Murray MD 07/11/2020 12:06 PM
[2021-12-30] MEDS ORDERED: MORPHINE 4 MG/ML SYR ONE ×2 (15:14→17:41)
[2021-12-30] MEDS ORDERED: ONDANSETRON 4 MG/2 ML VIAL ONE (15:15)
[2021-12-30] MEDS ORDERED: NA CHLORIDE 0.9% 1,000 ML ONE (15:15)
[2021-12-30 15:30] LABS: Urine Blood Negative (Negative); Urine Glucose Negative (Negative); Urine Protein Negative (Negative); Urine Specific Gravity 1.025 (1.005-1.030); Urine pH 5.5 (5.0-7.0)
[2021-12-30 15:35] LABS: Urine Specific Gravity/Preg 1.025 (1.005-1.030)
[2021-12-30 15:36] LABS: Absolute Lymphocytes (CBC) 0.9 K/uL (0.7-4.9); Hematocrit 45.5 % (36.0-45.0); Lymphocytes % 6.1 % (15.3-44.8); MCV 81.7 fL (80-100); MPV 8.6 fL (7.6-11.3); RBC Red Blood Cell Count 5.57 M/uL (3.86-4.86)
[2021-12-30 16:01] LABS: Albumin 3.9 g/dL (3.4-5.0); Bilirubin Total 0.6 mg/dL (0.2-1.0); Potassium 3.8 mmol/L (3.5-5.1); Protein, Total 8.8 g/dL (6.4-8.2)
--- NOTE | 2021-12-30 17:32 | RAD REPORT ---
EXAM DESCRIPTION: CTAbdomen Pelvis W Contrast - 12/30/2021 5:20 pm CLINICAL HISTORY: abd pain COMPARISON: Abdomen Pelvis W Contrast dated 07/06/2019; Abdomen Pelvis W Contrast dated 03/29/2016 ; Abdomen Pelvis W Contrast dated 03/07/2016 TECHNIQUE: CT of the abdomen and pelvis was performed. All CT scans are performed using dose optimization technique as appropriate and may include automated exposure control or mA/KV adjustment according to patient size. FINDINGS: Lower chest: No acute abnormality. Liver: Hepatic steatosis. Biliary: Cholecystectomy Stomach: No significant focal abnormality. Duodenum: No significant focal abnormality. Pancreas: No significant abnormality. Spleen: No significant abnormality. Adrenal: No suspicious lesions. Kidney/ureter: No hydronephrosis. No renal calculi. Retroperitoneum: No retroperitoneal adenopathy. Vascular: No aneurysm. Bowel: Normal appendix. No bowel obstruction..Mild fluid within the small bowel. Small air-fluid leve ls in the proximal colon. Peritoneum: No ascites or free air. Bladder: Grossly unremarkable. Reproductive: No adnexal masses. Bones: No acute fracture. Other: n/a IMPRESSION: No acute intra-abdominal or pelvic finding. Nonspecific fluid within the small bowel and colon could represent a gastroenteritis.
[2021-12-30] MEDS ORDERED: DICYCLOMINE HCL 10 MG CAP ONE (17:42)
--- NOTE | 2021-12-30 17:46 | ER ---
Nurse's Notes [facility] Name: Suzanne Anthony Age: 31 yrs Sex: Female : 1990 Arrival Date: 12/30/2021 Time: 13:29 Bed 16 Private MD: Diagnosis: Abdominal pain, unspecified;Vomiting;Diarrhea, unspecified Presentation: 12/30 13:47 Chief complaint: Patient states: Abd pain with N/V/D began today. No fever. Coronavirus ll1 screen: Vaccine status: Patient reports being unvaccinated. Client denies travel out of the [place] in the last 14 days. diarrhea, nausea, vomiting. Client presents with at least one sign or symptom that may indicate coronavirus-19. Standard/surgical mask placed on the client. Ebola Screen: Patient denies travel to an Ebola-affected area in the 21 days before illness onset. Initial Sepsis Screen: Does the patient meet any 2 criteria? HR > 90 bpm. No. Patient's initial sepsis screen is negative. Does the patient have a suspected source of infection? Yes: Acute abdominal pain. Risk Assessment: Do you want to hurt yourself or someone else? Patient reports no desire to harm self or others. Onset of symptoms was December 30, 2021. 13:47 Method Of Arrival: Wheelchair ll1 13:47 Acuity: AMANDA 3 ll1 Triage Assessment: 13:50 General: Appears uncomfortable, Behavior is cooperative, appropriate for age. Pain: ll1 Complains of pain in abdomen Pain currently is 10 out of 10 on a pain scale. Aggravated by increased activity. GI: Reports lower abdominal pain, upper abdominal pain, cramping, diarrhea, nausea, vomiting. Historical: - Allergies: 13:45 Naproxen; ll1 13:45 Ibuprofen; ll1 13:45 Red Dye; ll1 13:45 SHRIMP/CRAWFISH; ll1 - PMHx: 13:45 Ovarian cyst; sciatica; Asthma; ll1 - PSHx: 13:45 Cholecystectomy; "TUBES TIED"; ll1 - Immunization history:: Client reports having NOT received the Covid vaccine. - Social history:: Smoking status: Patient denies any tobacco usage or history of. Screenin:45 Abuse screen: Denies threats or abuse. Denies injuries from another. Nutritional bp screening: No deficits noted. Tuberculosis screening: No symptoms or risk factors identified. Fall Risk None identified. Assessment: 13:45 General: SEE TRIAGE NOTE. bp 16:27 Reassessment: No changes from previously documented assessment. Patient and/or family bp updated on plan of care and expected duration. Pain level reassessed. CT PENDING. 17:28 Reassessment: PT RETURNED FROM CT. bp 17:59 Reassessment: PT D/C HOME AMBULATORY WITH FAMILY. bp Vital Signs: 13:47 BP 142 / 90; Pulse 100; Resp 18; Temp 98.7; Pulse Ox 99% ; Weight 83.91 kg; Height 5 ll1 ft. 0 in. (152.40 cm); Pain 10/10; 14:00 BP 110 / 71; Pulse 87; Resp 16; Pulse Ox 95% ; bp 15:27 BP 103 / 61; Pulse 86; Resp 16; Pulse Ox 94% ; bp 16:27 BP 106 / 65; Pulse 79; Resp 16; Pulse Ox 98% ; bp 17:28 BP 118 / 70; Pulse 81; Resp 16; Pulse Ox 95% ; bp 13:47 Body Mass Index 36.13 (83.91 kg, 152.40 cm) ll1 ED Course: 13:29 Patient arrived in ED. rg4 13:31 Kyleigh Baker FNP-C is PHCP. kb 13:31 Monik Quinonez MD is Attending Physician. kb 13:40 Benjie Colon, ELIZA is Primary Nurse. bp 13:45 Arm band placed on Patient placed in an exam room, on a stretcher. ll1 13:45 Patient has correct armband on for positive identification. Bed in low position. Call bp light in reach. Side rails up X2. 13:50 Triage completed. ll1 15:25 Inserted saline lock: 20 gauge in left upper arm, using aseptic technique. Blood bp collected. 15:29 Urine collected: clean catch specimen, clear. tm3 15:36 PHCP role handed off by Kyleigh Baker FNP-C pm1 15:36 Yao Nolen NP is PHCP. pm1 17:07 CT Abd/Pelvis - IV Contrast Only Sent. bp 17:22 CT Abd/Pelvis - IV Contrast Only In Process Unspecified. EDMS 17:59 No provider procedures requiring assistance completed. IV discontinued, intact, bp bleeding controlled, No redness/swelling at site. Pressure dressing applied. Administered Medications: 15:25 Drug: NS 0.9% 1000 ml Route: IV; Rate: 1 bolus; Site: left upper arm; bp 17:07 Follow up: IV Status: Completed infusion; IV Intake: 1000ml bp 15:25 Drug: Zofran (Ondansetron) 4 mg Route: IVP; Site: left upper arm; bp 17:07 Follow up: Response: No adverse reaction bp 15:25 Drug: morphine 4 mg Route: IVP; Infused Over: 4 mins; Site: left upper arm; bp 17:07 Follow up: Response: No adverse reaction; Pain is decreased bp 17:50 Drug: Bentyl (dicyclomine) 20 mg Route: PO; bp 18:00 Follow up: Response: No adverse reaction bp 17:50 Drug: morphine 4 mg Route: IVP; Infused Over: 4 mins; Site: left upper arm; bp 18:00 Follow up: Response: No adverse reaction bp Medication: 13:45 VIS not applicable for this client. bp Intake: 17:07 IV: 1000ml; Total: 1000ml. bp Outcome: 17:46 Discharge ordered by . pm1 17:59 Discharged to home ambulatory, with family. bp 17:59 Condition: stable 17:59 Discharge instructions given to patient, family, Instructed on discharge instructions, follow up and referral plans. medication usage, Demonstrated understanding of instructions, follow-up care, medications, Prescriptions given X 3. 18:01 Patient left the ED. bp Signatures: Dispatcher [employer] EDOH Kyleigh Baker, EBENEZER CEDEÑOP-Ruddy Venegas tm3 Yao Nolen, KITYT TIRE SORTER pm1 Suzanne Gomez rg4 Benjie Colon, RN RN bp Eddie Woo, ELIZA RN ll1
--- NOTE | 2021-12-30 17:46 | EDPHYS ---
Physician Documentation [facility] Name: Suzanne Anthony Age: 31 yrs Sex: Female : 1990 Arrival Date: 12/30/2021 Time: 13:29 Bed 16 Private MD: ED Physician Monik Quinonez HPI: 12/30 14:43 This 31 yrs old Female presents to ER via Wheelchair with complaints of kb Abdominal Pain, Vomiting. 14:43 The patient presents with abdominal pain in the left upper quadrant. Onset: The kb symptoms/episode began/occurred at 06:00. The symptoms do not radiate. Associated signs and symptoms: Pertinent positives: nausea, vomiting, and diarrhea, Pertinent negatives: dysuria, fever. The symptoms are described as constant. Modifying factors: The symptoms are alleviated by nothing, the symptoms are aggravated by nothing. Severity of pain: At its worst the pain was moderate in the emergency department the pain is unchanged. The patient has not experienced similar symptoms in the past. The patient has not recently seen a physician. Pt reports n/v/d and left upper abd pain that started at 0600 today. Historical: - Allergies: 13:45 Naproxen; ll1 13:45 Ibuprofen; ll1 13:45 Red Dye; ll1 13:45 SHRIMP/CRAWFISH; ll1 - PMHx: 13:45 Ovarian cyst; sciatica; Asthma; ll1 - PSHx: 13:45 Cholecystectomy; "TUBES TIED"; ll1 - Immunization history:: Client reports having NOT received the Covid vaccine. - Social history:: Smoking status: Patient denies any tobacco usage or history of. ROS: 14:44 Constitutional: Negative for fever, chills, and weight loss. kb 14:44 Abdomen/GI: Positive for abdominal pain, nausea, vomiting, and diarrhea. 14:44 All other systems are negative. Exam: 14:44 Constitutional: This is a well developed, well nourished patient who is awake, alert, kb and in no acute distress. Head/Face: Normocephalic, atraumatic. ENT: Moist Mucous membranes Cardiovascular: Regular rate and rhythm with a normal S1 and S2. No gallops, murmurs, or rubs. No pulse deficits. Respiratory: Respirations even and unlabored. No increased work of breathing. Talking in full sentences Skin: Warm, dry with normal turgor. Normal color. MS/ Extremity: Pulses equal, no cyanosis. Neurovascular intact. Full, normal range of motion. Neuro: Awake and alert, GCS 15, oriented to person, place, time, and situation. Moves all extremities. Normal gait. Psych: Awake, alert, with orientation to person, place and time. Behavior, mood, and affect are within normal limits. 14:44 Abdomen/GI: Inspection: abdomen appears normal, Bowel sounds: normal, Palpation: soft, in all quadrants, mild abdominal tenderness, in the right upper quadrant, moderate abdominal tenderness, in the left upper quadrant. Vital Signs: 13:47 BP 142 / 90; Pulse 100; Resp 18; Temp 98.7; Pulse Ox 99% ; Weight 83.91 kg; Height 5 ll1 ft. 0 in. (152.40 cm); Pain 10/10; 14:00 BP 110 / 71; Pulse 87; Resp 16; Pulse Ox 95% ; bp 15:27 BP 103 / 61; Pulse 86; Resp 16; Pulse Ox 94% ; bp 16:27 BP 106 / 65; Pulse 79; Resp 16; Pulse Ox 98% ; bp 17:28 BP 118 / 70; Pulse 81; Resp 16; Pulse Ox 95% ; bp 13:47 Body Mass Index 36.13 (83.91 kg, 152.40 cm) ll1 MDM: 13:38 Patient medically screened. kb 14:44 Data reviewed: vital signs, nurses notes. Data interpreted: Pulse oximetry: on room air kb is 95 %. Interpretation: normal. 15:49 Transition of care: After a detail discussion of the patient's case, care is kb transferred to Yao Nolen NP. 17:43 Counseling: I had a detailed discussion with the patient and/or guardian regarding: the pm1 historical points, exam findings, and any diagnostic results supporting the discharge/admit diagnosis, lab results, radiology results, the need for outpatient follow up, to return to the emergency department if symptoms worsen or persist or if there are any questions or concerns that arise at home. 17:43 Differential diagnosis: appendicitis, cholecystitis, Cholelithiasis, diverticulitis, pm1 gastritis, non-specific abd pain, pancreatitis, Based on labs history of present illness and work-up findings, patient's illness appears to be a viral gastroenteritis. Therefore will treat patient with symptom relief, antinausea and pain medications. 17:52 ED course: PMPaware reviewed. pm1 12/30 14:42 Order name: CBC with Diff; Complete Time: 15:48 kb 12/30 14:42 Order name: CMP; Complete Time: 16:02 kb 12/30 14:42 Order name: Lipase; Complete Time: 16:02 kb 12/30 14:42 Order name: CT Abd/Pelvis - IV Contrast Only; Complete Time: 17:34 kb 12/30 15:30 Order name: Urine Dipstick-Ancillary; Complete Time: 15:30 EDMS 12/30 15:32 Order name: Urine --Ancillary (enter results); Complete Time: 15:36 bd 12/30 14:42 Order name: IV Saline Lock; Complete Time: 15:26 kb 12/30 14:42 Order name: Labs collected and sent; Complete Time: 15:26 kb 12/30 14:42 Order name: Urine Dipstick-Ancillary (obtain specimen); Complete Time: 15:26 kb 12/30 14:42 Order name: Urine Test (obtain specimen); Complete Time: 15:26 kb Administered Medications: 15:25 Drug: NS 0.9% 1000 ml Route: IV; Rate: 1 bolus; Site: left upper arm; bp 17:07 Follow up: IV Status: Completed infusion; IV Intake: 1000ml bp 15:25 Drug: Zofran (Ondansetron) 4 mg Route: IVP; Site: left upper arm; bp 17:07 Follow up: Response: No adverse reaction bp 15:25 Drug: morphine 4 mg Route: IVP; Infused Over: 4 mins; Site: left upper arm; bp 17:07 Follow up: Response: No adverse reaction; Pain is decreased bp 17:50 Drug: Bentyl (dicyclomine) 20 mg Route: PO; bp 18:00 Follow up: Response: No adverse reaction bp 17:50 Drug: morphine 4 mg Route: IVP; Infused Over: 4 mins; Site: left upper arm; bp 18:00 Follow up: Response: No adverse reaction bp Disposition Summary: 12/30/21 17:46 Discharge Ordered Location: Home pm1 Problem: new pm1 Symptoms: have improved pm1 Condition: Stable pm1 Diagnosis - Abdominal pain, unspecified pm1 - Vomiting pm1 - Diarrhea, unspecified pm1 Followup: pm1 - With: Emergency Department - When: As needed - Reason: Worsening of condition Followup: pm1 - With: Private Physician - When: 2 - 3 days - Reason: Recheck today's complaints, Continuance of care, Re-evaluation by your physician Discharge Instructions: - Discharge Summary Sheet pm1 - Abdominal Pain, Adult pm1 - Food Choices to Help Relieve Diarrhea, Adult pm1 - Diarrhea, Adult pm1 - Viral Gastroenteritis, Adult pm1 - Vomiting, Adult pm1 Forms: - Medication Reconciliation Form pm1 - Work release form pm1 - Family Work Release pm1 - Thank You Letter pm1 - Antibiotic Education pm1 - Prescription Opioid Use pm1 Prescriptions: - ondansetron 4 mg Oral tablet,disintegrating - take 1 tablet by ORAL route every 8 hours As needed; 12 tablet; Refills: 0, pm1 Product Selection Permitted - dicyclomine 20 mg Oral Tablet - take 1 tablet by ORAL route every 6 hours As needed; 20 tablet; Refills: 0, pm1 Product Selection Permitted - Tylenol-Codeine #3 300 mg-30 mg Oral - take 2 tablet by ORAL route every 6 hours As needed; 20 tablet; Refills: 0, pm1 Product Selection Permitted Signatures: Dispatcher [employer] EDMS Kyleigh Baker, MINERAL SURVEYOR-C MINERAL SURVEYOR-Yao Ho, KITTY CNC SPECIALIST pm1 Benjie Colon, RN RN bp Eddie Woo RN RN ll1 Corrections: (The following items were deleted from the chart) 15:30 14:44 Abdomen/GI: Inspection: abdomen appears normal, Bowel sounds: normal, Palpation: kb soft, in all quadrants, moderate abdominal tenderness, in the right upper quadrant and left upper quadrant, kb
[2021-12-30 18:06] VITALS: TEMP 98.7
[2021-12-30 18:10] VITALS: BP 118/70; O2SAT 95
== END 2021-12-30 18:01 | disposition home or self-care (01) ==
LOC: ER 13:27
DX: R10.12 Left upper quadrant pain (principal); R11.10 Vomiting, unspecified; R19.7 Diarrhea, unspecified; Z88.6 Allergy status to analgesic agent; Z91.02 Food additives allergy status; Z91.013 Allergy to seafood
CPT/HCPCS: 96361; 85025; 36415; 81025; 81003; 83690; 80053; 74177; 96375; 96374; 99284; Q9967; J7030; J2405

== ENCOUNTER 2022-01-22 10:09 | Emergency (ER) | payer OTHER ==
--- OUTSIDE RECORDS SUMMARY | 2022-01-22 10:12 | XMS REPORT | Continuity of Care Document ---
:1990 Author Organization [facility] t Address [address] [place] [address] Care Team Providers Name Role Phone Rufino Murray MD Primary Care Physician RUFINO MURRAY Attending Clinician Unavailable AGUS COLVIN Attending Clinician Unavailable Taz Harris MD Attending Clinician [facility] Attending Clinician Unavailable Rufino Murray MD Attending Clinician RUFINO MURRAY Admitting Clinician Unavailable Payers Payer Name Policy Type Policy Number Effective Date Expiration Date S linda [facility] [id number] 2020 00:00:00 [place] [id number] 2020 00:00:00 [facility] [id number] 2017 CHOICE MEDICAID 00:00:00 Problems Condition Condition [...] ity of in third in third 00:00: [place] trimester trimester 00 [facility] Encounter Encounter Disease Active Uni vers for tubal for tubal 2-03 ity of ligation ligation 00:00: [place] counseling counseling 00 [facility] Round Round Disease Active Univers ligament ligament 2-03 ity of pain pain 00:00: [place] 00 Medical Branch History of History of Disease Active U nivers depression depression 6-13 it y of 00:00: [place] 00 [facility] Branch PUPP PUPP Disease Active Univers (pruritic (pruritic 3-15 ity of urticarial [place] pap[place] papules 00 [facility] and Branch plaques of plaques of ) ) Obesity Obesity Disease Active 2016-03 Univers (BMI (BMI 1-07 ity of 30-39.9) 30-39.9) 00:00: [place] 00 [facility] Disease Resolve 2020-07-08 2020-07-08 Univers uterine uterine d 4-26 00:00:00 19:54:07 [place] of [place]io [place] 00 [facility] third third Branch trimester, trimester, antepartum antepartum 32 weeks 32 weeks Disease Resolve 2020-06-20 2020-06-20 Univers gestation gestation d 3-29 00:00:00 15:37:20 ity of of of 00:00: [place] 00 [facility] Postmaturi Postmaturi Disease Resolve 2020-02-13 2020-02-13 Univers ty ty d 6-13 00:00:00 20:28:39 ity of , , [place] 40-42 40-42 00 Medical weeks weeks [place] gestation gestation 40 weeks 40 weeks Disease Resolve 2016-032020-02-13 2020-02-13 Univers gestation gestation d 1-07 00:00:00 20:28:32 ity of of of 00:00: [place] 00 [facility] Fever in Fever in Disease Resolve 2017-08-18 2017-08-18 Univers adult adult d 4 00:00:00 17:31:51 ity of 00:00: [place] 00 Medical Branch Maternal Maternal Disease Resolve 2017-08-18 2017-08-18 Univers care for care for d 4 00:00:00 17:31:55 it y of 00:00: [place] [...] Comments Source ASSERTION 2019-11-01 University of 00:00:00 [facility] Exposure to Not sure [place] of SARS-CoV-2 [facility] (event) Branch History of Cigarette Smoker Universi ty of tobacco use [facility] Tobacco use and 2020-07-11 2020-07-11 Never used Universit y of exposure 00:00:00 00:00:00 [facility] Alcohol intake 2020-07-11 2020-07-11 Current [facility] 00:00:00 00:00:00 non-drinker of [facility] alcohol (finding) Branch Sex Ass[birth year] At [birth year] Universit y of 00:00:00 00:00:00 [facility] Smoking Status Start Date Stop Date Source Former smoker 2020-07-11 00:00:00 2020-07-11 00:00:[address] [facility] Medications Ordered Filled Start Stop Current Ordering [...] tablet by ity of tablet 00:00: mouth every Medical evening. Branch glyBURIDE Yes GDM, class 2.5mg Take 1 Univers 2.5 mg 5-03 A2 tablet by ity of tablet 00:00: mouth [place] 00 every Medical evening. Branch Blood-Gluco Yes Use as Univ ers se Meter 4-12 directed ity of Kit 00:00: [place] 00 Medical Branch lancets 25 0 Yes Check Univer s gauge Misc 4-12 blood ity of 00:00: glucose 00 four times Medical daily Branch blood [...] (four) [place] 00 times Medical daily. Branch [id number] Yes Take by Uni vers 3-dha-epa-f 3-30 mouth. ity of bj oil 22:05: [place] ( 03 Medical GUMMY) 400 Branch mcg-35 mg -25 mg-5 mg Chew [id number] Yes Take by Uni vers 3-dha-epa-f 3-30 mouth. ity of bj oil 22:05: [place] ( 03 Medical GUMMY) 400 Branch mcg-35 mg -25 mg-5 mg Chew [id number] Yes Take by Uni vers 3-dha-epa-f 3-30 [...] Immunization Name Name TDAP 2020-06-03 Completed University 00:00:00 [facility] TDAP 2020-06-03 Completed University 00:00:00 [facility] TDAP 2020-06-03 Completed University 00:00:00 [facility] TDAP 2017-05-20 Completed University of 00:00:00 [facility] TDAP 2017-05-20 Completed University of 00:00:00 [facility] TDAP 2017-05-20 Completed University of 00:00:00 [facility] TDAP 2007-03-07 Completed University 00:00: [facility] TDAP 2007-03-07 Completed University of 00:00:00 [facility] TDAP 2007-03-07 Completed [facility] 00:00:00 [facility] Vital Signs Vital Name Observation Time Observation Value Comments Source Systolic blood 2020-07-11 16:31:00 114 mm[Hg] [facility] Diastolic blood 2020-07-11 16:31:00 73 mm[Hg] [facility] Heart rate 2020-07-11 16:31:00 88 /min [facility] Body temperature 2020-07-11 16:31:00 36.83 Naya [facility] Respiratory rate 2020-07-11 16:31:00 18 /min [facility] Body height 2020-07-11 16:31:00 152.4 cm [facility] Body weight 2020-07-11 16:31:00 90.266 kg [facility] BMI 2020-07-11 16:31:00 38.86 kg/m2 [facility] Procedures Procedure Date / Time Performed Performing Clinician Danyell anguiano NON-STRESS TEST 2020-07-11 17:06:[address] [facility] Plan of Care Planned Activity Planned Date Details Comments Source Future Scheduled 2030-06-03 DTaP,Tdap,and Td [facility] Test 00:00:00 Vaccines (4 - Td) Medical Br anch [code = DTaP,Tdap,and Td Vaccines (4 - Td)] Future Scheduled 2030-06-03 [facility] Vaccines (4 - Td) Medical Br anch [code = DTaP,Tdap,and Td Vaccines (4 - Td)] Future Scheduled 2030-06-03 DTaP,Tdap,and Td Univers [facility] Test 00:00:00 Vaccines (4 - Td) Medical Br anch [code = DTaP,Tdap,and Td Vaccines (4 - Td)] Future Scheduled 2023-02-05 Screening for [facility] Test 00:00:00 malignant neoplasm of Medica l Branch cervix (procedure) [code = 214738831] Future Scheduled 2023-02-05 Screening for [facility] Test 00:00:00 malignant neoplasm of Medica l Branch cervix (procedure) [code = 718028318] Future Scheduled 2023-02-05 Screening for [facility] Test 00:00:00 malignant neoplasm of Medica l Branch cervix (procedure) [code = 553293070] Future Scheduled 2021-02-11 Creatinine [facility] Test 00:00:00 measurement Medical Branch (procedure) [code = 01584462] Future Scheduled 2021-02-11 Creatinine [facility] Test 00:00:00 measurement Medical Branch (procedure) [code = 62039470] Future Scheduled 2020-12-31 Hemoglobin A1c [facility] Test 00:00:00 measurement Medical Branch (procedure) [code = 48038568] Future Scheduled 2020-12-31 Hemoglobin A1c [facility] Test 00:00:00 measurement Medical Branch (procedure) [code = 71483786] Future Scheduled 2020-11-06 [facility] (Season Ended) [code Medical Branch = INFLUENZA VACCINE (Season Ended)] Future Scheduled 2020-11-06 [facility] (Season Ended) [code Medical Branch = INFLUENZA VACCINE (Season Ended)] Future Scheduled 2020-11-06 [facility]00 (Season Ended) [code Medical Branch = INFLUENZA VACCINE (Season Ended)] Future Scheduled 2007-06-25 Diabetic foot [facility] Test 00:00:00 examination Medical Branch (regime/therapy) [code = 560117417] Future Scheduled 2007-06-25 Diabetic foot [facility] [place] Test 00:00:00 examination Medical Branch (regime/therapy) [code = 581428912] Future Scheduled 2005 SARS-CoV-2 (COVID-19) Un iversity [...] Test 00:00:00 (procedure) [code = Medical Branch [id number]] Future Scheduled 2001 Depression screening [facility] [place] Test 00:00:00 (procedure) [code = Medical Branch [id number]] Future Scheduled 2001 Depression screening [facility] [place] Test 00:00:00 (procedure) [code = Medical Branch 149979354] Future Scheduled 1999-06-25 Examination of retina [facility] [place] Test 00:00:00 (procedure) [code = Medical Branch 110155078] Future Scheduled 1999-06-25 Calculated low [facility] [place] Test 00:00:00 density lipoprotein Medical Branch cholesterol level (procedure) [code = 374525280] Future Scheduled 1999-06-25 Microalbumin [facility] [place] Test 00:00:00 measurement, urine, Medical Branch quantitative (procedure) [code = 832274196] Future Scheduled 1999-06-25 Examination of retina [facility] [place] Test 00:00:00 (procedure) [code = Medical Branch 654470655] Future Scheduled 1999-06-25 Calculated low [facility] [place] Test 00:00:00 density lipoprotein Medical Branch cholesterol level (procedure) [code = 959435795] Future Scheduled 1999-06-25 Microalbumin [facility] [place] Test 00:00:00 measurement, urine, Medical Branch quantitative (procedure) [code = 334587232] Future Scheduled 1995-06-25 PNEUMOCOCCAL 0-[address] [facility] Test 00:00:00 YEARS COMBINED SERIES Medica l Branch (1 of 1 - PPSV23) [code = PNEUMOCOCCAL 0-64 YEARS COMBINED SERIES (1 of 1 - PPSV23)] Future Scheduled 1995-06-25 PNEUMOCOCCAL 0-[address] [facility] Test 00:00:00 YEARS COMBINED SERIES Medica l Branch (1 of 1 - PPSV23) [code = PNEUMOCOCCAL 0-64 YEARS COMBINED SERIES (1 of 1 - PPSV23)] Future Scheduled 1995-06-25 PNEUMOC[facility]CCAL 0-64 [facility] Test 00:00:00 YEARS COMBINED SERIES Medica l Branch (1 of 1 - PPSV23) [code = PNEUMOCOCCAL 0-64 YEARS COMBINED SERIES (1 of 1 - PPSV23)] Encounters Start End Encounter Admission Attending Care Care Encounter Source Date/Time Date/Time Type Type Clinicians Facility Department ID 2021-01-06 Outpatient RUFINO MONTALVO [facility] OPERATIONS DISPATCHER [id number] [facility]05 Outpatient P [facility] GIUSEPPE [id number] Univers 18:22:[facility] 2021-01-05 Outpatient P [facility] GIUSEPPE [id number] Univers 09:38[facility] 2021-01-05 Outpatient P [facility] GIUSEPPE [id number] Univers 09:18:[facility] 2020-12-19 2020-12-19 Outpatient RUFINO MONTALVO [facility] [id number] Univers 13:30:00 13[facility]30:[facility] 2020-09-18 2020-09-18 Outpatient RUFINO MONTALVO [facility] [id number] Univers 13:00:00 [facility]00:[facility] 2020-09-12 2020-09-12 Outpatient Corinne COLVIN [facility] [id number] Univers 16:00:00 16:00:00 [facility] 2020-09-02 2020-09-02 Outpatient RUFINO MONTALVO [facility] [id number] Univers 08:45:00 08:45:00 ity [facility] 2020-08-28 2020-08-28 Outpatient R RUFINO MURRAY [facility] [id number] Univers 11:30:00 11:30:[address] [facility] 2020-08-14 2020-08-14 Outpatient R RUFINO MURRAY [facility] [id number] Univers 13:15:00 13:15:00 ity [facility] 2020-07-16 2020-07-16 Outpatient R RUFINO MURRAY [facility] [id number] Univers 10:00:00 10:00:00 ity [facility] 2020-07-15 2020-07-15 Outpatient R [facility] [id number] Univers 13:00:00 13:00:00 ity [facility] 2020-07-12 2020-07-12 Outpatient P [facility] [id number] Univers 11:00:00 11:00:00 ity [facility] 2020-07-11 2020-07-11 Outpatient R [facility] [id number] Univers 11:00:00 11:00:00 ity [facility] 2020-07-08 2020-07-08 Outpatient R RUFINO MURRAY [facility] [id number] Univers 14:15:00 14:15:00 ity [facility] 2020-07-01 2020-07-01 Outpatient R TERRI [facility] [id number] Univers 16:15:00 16:15:00 ity [facility] 2020-06-27 2020-06-27 Outpatient R RUFINO MURRAY [facility] [id number] Univers 09:00:00 09:00:00 ity [facility] 2020-06-20 2020-06-20 Outpatient R RUFINO MURRAY [facility] [id number] Univers 09:15:00 09:15:00 ity [facility] 2020-06-17 2020-06-17 Outpatient R TERRI [facility] [id number] Univers 09:00:00 09:00:00 ity [facility] 2020-06-17 2020-06-17 Outpatient R RUFINO MURRAY [facility] [id number] Univers 09:00:00 09:00:00 ity [facility] 2020-06-05 2020-06-05 Outpatient R [facility] [id number] Univers 08:00:00 08:00:00 ity [facility] 2020-06-03 2020-06-03 Outpatient R VITAMOHAMUD [facility] [id number] Univers 14:15:00 14:15:00 [facility] 2020-05-27 2020-05-27 Outpatient R MARII [facility] [id number] Univers 11:15:00 11:15:00 [facility] 2020-05-13 2020-05-13 Outpatient R RUFINO MURRAY [facility] [id number] Univers 11:00:00 11:00:00 ity [facility] 2020-05-08 2020-05-08 Outpatient R RUFINO MURRAY [facility] [id number] Univers 11:00:00 11:00:00 ity [facility] 2020-04-10 2020-04-10 [facility] [id number] Univers 10:15:00 [facility]15:[facility] 2020-03-15 2020-03-15 Outpatient R [facility] [id number] Univers 13:00:00 13:00:[facility] 2020-03-12 2020-03-12 Outpatient R MARII [facility] [id number] Univers 13:00:00 13:00:00 [facility] 2020-02-13 2020-02-13 Outpatient R RUFINO MURRAY [facility] [id number] Univers 16:15:00 16:15:00 [facility] 2020-02-12 2020-02-12 Outpatient R RUFINO MURRAY [facility] [id number] Univers 08:45:00 08:45:00 [facility] 2020-02-06 2020-02-06 Outpatient R RUFINO MURRAY [facility] [id number] Univers 14:30:00 14:30:00 [facility] Results Test Description Test Time Test Comments Results Result Sourc e Comments NON-STRESS Reactive and Univer sity of TEST 6 [facility] 17:07:04 quiescent Rufino Murray MD 07/11/2020 12:06 PM NON-STRESS 0 Reactive and Univer sity of TEST 6 [facility] 17:07:04 rani Murray MD 07/11/2020 12:06 PM
--- NOTE | 2022-01-22 10:41 | EDPHYS ---
Physician Documentation [facility] Name: Suzanne Venegas Age: 31 yrs Sex: Female : 1990 Arrival Date: 01/22/2022 Time: 10:10 Bed 10 Private MD: ED Physician Jose Palma HPI: 01/22 13:30 This 31 yrs old Female presents to ER via Ambulatory with complaints of Ear kb Pain. 13:30 The patient presents with pain. The complaints affect the left ear. Onset: The kb symptoms/episode began/occurred last week, and became worse last night. Modifying factors: The symptoms are alleviated by nothing, the symptoms are aggravated by nothing. Associated signs and symptoms: The patient has no apparent associated signs or symptoms. Severity of symptoms: At their worst the symptoms were moderate in the emergency department the symptoms are unchanged. The patient has not experienced similar symptoms in the past. The patient has not recently seen a physician. Pt reports cough and sinus pressure for a week with bilateral ear pain. Left ear pain got much worse last night. Historical: - Allergies: 10:39 Ibuprofen; kr3 10:39 Red Dye; kr3 10:39 SHRIMP/CRAWFISH; kr3 - PMHx: 10:39 Asthma; Ovarian cyst; sciatica; Irritable bowel syndrome; bells palsy; shingles; kr3 - PSHx: 10:41 Cholecystectomy; "tubes tied"; foot sx; kr3 - Immunization history:: Adult Immunizations not up to date. - Social history:: Smoking status: Patient denies any tobacco usage or history of. ROS: 13:31 Constitutional: Negative for fever, chills, and weight loss. kb 13:31 ENT: Positive for ear pain, sinus pain. 13:31 Respiratory: Positive for cough. 13:31 All other systems are negative. Exam: 13:31 Constitutional: This is a well developed, well nourished patient who is awake, alert, kb and in no acute distress. Head/Face: Normocephalic, atraumatic. Cardiovascular: Regular rate and rhythm with a normal S1 and S2. No gallops, murmurs, or rubs. No pulse deficits. Respiratory: Respirations even and unlabored. No increased work of breathing. Talking in full sentences Abdomen/GI: Soft, non-tender. No distention Skin: Warm, dry with normal turgor. Normal color. MS/ Extremity: Pulses equal, no cyanosis. Neurovascular intact. Full, normal range of motion. Neuro: Awake and alert, GCS 15, oriented to person, place, time, and situation. Moves all extremities. Normal gait. 13:31 ENT: External ear(s): are unremarkable, Ear canal(s): are normal, TM's: bulging, on the left, erythema, that is moderate, on the left. Vital Signs: 10:35 BP 115 / 86; Pulse 101; Resp 18; Temp 99.0(O); Pulse Ox 99% ; Weight 78.47 kg; Height 5 kr3 ft. 0 in. (152.40 cm); Pain 6/10; 10:35 Body Mass Index 33.79 (78.47 kg, 152.40 cm) kr3 MDM: 10:40 Patient medically screened. kb 13:32 Data reviewed: vital signs, nurses notes. Data interpreted: Pulse oximetry: on room air kb is 99 %. Interpretation: normal. Counseling: I had a detailed discussion with the patient and/or guardian regarding: the historical points, exam findings, and any diagnostic results supporting the discharge/admit diagnosis, the need for outpatient follow up, a family practitioner, to return to the emergency department if symptoms worsen or persist or if there are any questions or concerns that arise at home. Administered Medications: No medications were administered Disposition Summary: 01/22/22 10:40 Discharge Ordered Location: Home kb Condition: Stable kb Diagnosis - Otitis media, unspecified, left ear kb Followup: kb - With: Emergency Department - When: As needed - Reason: Worsening of condition Followup: kb - With: Private Physician - When: 2 - 3 days - Reason: Recheck today's complaints, Continuance of care, Re-evaluation by your physician Discharge Instructions: - Discharge Summary Sheet kb - Otitis Media, Adult, [id number]-[id number] kb Forms: - Medication Reconciliation Form kb - Thank You Letter kb - Antibiotic Education kb - Prescription Opioid Use kb Prescriptions: - Augmentin 875-125 mg Oral Tablet - take 1 tablet by ORAL route every 12 hours for 10 days; 20 tablet; Refills: 0, kb Product Selection Permitted Addendum: 01/24/2022 08:29 Co-signature as Attending Physician, Jose Palma MD I agree with the assessment and c dick plan of care. Signatures: Kyleigh Baker, PROJECT ASSISTANT-C PROJECT ASSISTANT-Ckb Jose Palma MD MD cha Reid, Kelley, RN RN kr3 Corrections: (The following items were deleted from the chart) 01/22 10:41 10:39 Allergies: Naproxen; sandra kr3
--- NOTE | 2022-01-22 10:41 | ER ---
Nurse's Notes [facility] Name: Suzanne Venegas Age: 31 yrs Sex: Female : 1990 Arrival Date: 01/22/2022 Time: 10:10 Bed 10 Private MD: Diagnosis: Otitis media, unspecified, left ear Presentation: 01/22 10:35 Chief complaint: Patient states: I have had a cough and congestion for a week and now I kr3 have bad ear pain that started yesterday. I have been taking Sudafed and it has not helped. Coronavirus screen: Vaccine status: Patient reports being unvaccinated. Client denies travel out of the [place] in the last 14 days. Ebola Screen: Patient denies travel to an Ebola-affected area in the 21 days before illness onset. Initial Sepsis Screen: Does the patient meet any 2 criteria? No. Patient's initial sepsis screen is negative. Does the patient have a suspected source of infection? No. Patient's initial sepsis screen is negative. Risk Assessment: Do you want to hurt yourself or someone else? Patient reports no desire to harm self or others. Onset of symptoms was January 17, 2022. 10:35 Method Of Arrival: Ambulatory kr3 10:35 Acuity: AMANDA 4 kr3 Triage Assessment: 10:42 General: Appears in no apparent distress. uncomfortable, Behavior is calm, cooperative, kr3 appropriate for age. Pain: Complains of pain in left ear and headache. Historical: - Allergies: 10:39 Ibuprofen; kr3 10:39 Red Dye; kr3 10:39 SHRIMP/CRAWFISH; kr3 - PMHx: 10:39 Asthma; Ovarian cyst; sciatica; Irritable bowel syndrome; bells palsy; shingles; kr3 - PSHx: 10:41 Cholecystectomy; "tubes tied"; foot sx; kr3 - Immunization history:: Adult Immunizations not up to date. - Social history:: Smoking status: Patient denies any tobacco usage or history of. Screenin:48 Abuse screen: Denies threats or abuse. Denies injuries from another. Nutritional ss screening: No deficits noted. Tuberculosis screening: Never had TB. Fall Risk None identified. Assessment: 10:48 General: Appears in no apparent distress. comfortable, Behavior is calm, cooperative. ss Neuro: Level of Consciousness is awake, alert, obeys commands, Oriented to person, place, time, situation. Cardiovascular: Capillary refill < 3 seconds is brisk in bilateral fingers. Respiratory: Airway is patent Respiratory effort is even, unlabored, Respiratory pattern is regular, symmetrical. EENT: Oral mucosa is moist. Derm: Skin is intact, is healthy with good turgor, Skin is dry, Skin is pink, warm \\T\\ dry. normal. Vital Signs: 10:35 BP 115 / 86; Pulse 101; Resp 18; Temp 99.0(O); Pulse Ox 99% ; Weight 78.47 kg; Height 5 kr3 ft. 0 in. (152.40 cm); Pain 6/10; 10:35 Body Mass Index 33.79 (78.47 kg, 152.40 cm) kr3 ED Course: 10:10 Patient arrived in ED. am2 10:18 [facility]igh [facility]C [facility] kb 10:18 Jose Palma MD is Attending Physician. kb 10:39 Triage completed. kr3 10:42 Arm band placed on right wrist. kr3 10:47 Angella Ken, ELIZA is Primary Nurse. ss 10:48 Patient has correct armband on for positive identification. Bed in low position. Call ss light in reach. 10:48 No provider procedures requiring assistance completed. Patient did not have IV access ss during this emergency room visit. Administered Medications: No medications were administered Medication: 10:48 VIS not applicable for this client. ss Outcome: 10:40 Discharge ordered by MD. kb 10:48 Discharged to home ambulatory. ss 10:48 Condition: good 10:48 Discharge instructions given to patient, Instructed on discharge instructions, follow up and referral plans. medication usage, Demonstrated understanding of instructions, follow-up care, medications, Prescriptions given X 1. 10:49 Patient left the ED. ss Signatures: Kyleigh Baker FNP-C FNP-Angella Salmon, RN RN Sushma Buckley am2 Kylah Morel RN RN kr3 Corrections: (The following items were deleted from the chart) 10:41 10:39 Allergies: Naproxen; kr3 kr3
[2022-01-22 11:02] VITALS: BP 115/86; TEMP 99; O2SAT 99
== END 2022-01-22 10:49 | disposition home or self-care (01) ==
LOC: ER 10:09
DX: H66.92 Otitis media, unspecified, left ear (principal)
CPT/HCPCS: 99282

== ENCOUNTER → 2023-04-02 | Emergency (ER) | payer SELFPAY ==
[~2023-04-02] MED LIST: HYDROCODONE/APAP 5/325 MG TAB ONE; KETOROLAC 30 MG/ML INJ ONE; ONDANSETRON 4 MG (ODT) TAB ONE; PROMETHAZINE INJ 25 MG/ML AMP ONE; methocarbamoL 750 MG TAB ONE
--- OUTSIDE RECORDS SUMMARY | 2023-04-02 09:27 | XMS REPORT | Continuity of Care Document ---
Author Name Unknown Address [address] [facility] [address] [place] [id number] [facility] thconnect Address [address] [facility] 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 Role Phone Rufino Murray MD Primary Care Physician [phone] RUFINO MURRAY Attending Clinician Unavailable [email or web address] Attending Clinician Unavaila ble Doctor Unassigned, [place] Attending Clinician [facility] Attending Clinician Unavailable RUFINO MURRAY Admitting Clinician Unavailable [email or web address] Admitting Clinician Unavaila ble Payers Payer Name Policy Type Policy Number Effective Date Expirati on Date Source [facility] [id number] 2020 00:00:00 [place] [id number] 2020 00:00:00 [facility] [employer] MEDICA[employer] [id number] 2017 00:00:00 Problems Condition Name Condition Details Condition Category Status Onset Date Resolution Date Last Treatment Date Treating Clinician Comments Source Rash and other nonspecifi c skin eruption Rash and other nonspecifi c skin eruption Disease Active 09-18 00:00: 00 [facility] 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 Disease Active - 00:00: 00 [facility] Current moderate episode of major depressive disorder without prior episode Current moderate episode of major depressive disorder without prior episode Disease Active 08-18 00:00: 00 [facility] Obesity (BMI 30-39.9) Obesity (BMI 30-39.9) Disease Active 2016-03 00:00: 00 [facility] Allergies, Adverse Reactions, Alerts Allergy Name Allergy Type Status Severity Reaction(s) Onset Date Inactive Date Treating Clinician Comments Source IBUPROFE N DRUG INGREDI Active Rash 2013-03 00:00: 00 [facility] NAPROXEN DRUG INGREDI Active Other-Cmnt 2013-03 00:00: 00 [facility] RED DYE DRUG INGREDI Active Other-Cmnt 2013-03 00:00: 00 [facility] Red Dye Propensi ty to adverse reaction s Active Other - See comments 2013-03 00:00: 00 Red dye #40 : pt states gives her extreme "bad" headaches . [facility] Social History Social Habit Start Date Stop Date Quantity Comments Source History of tobacco use Cigarette Smoker [facility] Sexual orientation [facility] Exposure to SARS-CoV-2 (event) 2020-08-19 00:00:00 2020-09-18 13:01:00 Not sure [facility] History of Social function 2020-09-03 00:00:00 2020-09-03 00:00:00 [facility] Alcohol intake 2020-08-14 00:00:00 2020-08-14 00:00:00 Current non-drinker of alcohol (finding) [facility] Tobacco use and exposure 2017-01-04 00:00:00 2017-01-04 00:00:00 Smokeless tobacco non-user [facility] Sex Assigned At 1990 00:00:00 1990 00:00:00 [facility] Smoking Status Start Date Stop Date Source Ex-smoker 2017-01-04 00:00:00 2017-01-04 00:00:00 [facility] Medications Ordered Medication Name Filled Medication Name Start Date Stop Date Current Medication? Ordering Clinician Indication Dosage Frequency Signature (SIG) Comments Components Source FLUoxetine 20 mg capsule 09-18 00:00: 00 Yes [id number] 20mg Take 1 capsule by mouth daily. [facility] hydrOXYzine 25 mg tablet 09-12 00:00: 00 Yes [id number] 25mg Take 1 tablet by mouth every 6 (six) hours. [facility] triamcinolo ne acetonide 0.1 % ointment 08-28 00:00: 00 Yes [id number] Apply to area(s) 2 (two) times daily. [facility] Immunizations Ordered Immunization Name Filled Immunization Name Date Status Comments Source TDAP Unknown Completed [facility] TDAP Unknown Completed [facility] TDAP Unknown Completed [facility] TDAP Unknown Completed [facility] TDAP Unknown Completed [facility] TDAP Unknown Completed [facility] Encounters Start Date/Time End Date/Time Encounter Type Admission Type Attending [facility] Care Facility Care Department Encounter ID Source 2021-01-06 00:39:27 Outpatient RUFINO MONTALVO [facility] 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 [id number] [facility] 2021-01-05 18:22:09 Outpatient P [facility] GIUSEPPE [id number] [facility] 2021-01-05 09:38:22 Outpatient P [facility] [id number] [facility] 2021-01-05 09:18:24 Outpatient P [facility] [id number] [facility] 2023-01-05 00:00:00 2023-01-05 00:00:00 Outpatient GC_GCBZW_Ka diyala_S [facility] [id number] [facility] 2020-12-19 13:30:00 2020-12-19 13:30:00 Outpatient RUFINO MONTALVO [facility] [id number] [facility] 2020-09-24 00:00:00 2020-09-24 00:00:00 Patient Secure Msg Doctor Unassigned, [place] [facility] [id number] [facility] 2020-09-18 13:00:00 2020-09-18 13:00:00 Outpatient RUFINO MONTALVO [facility] [id number] [facility] 2020-09-12 16:00:00 2020-09-12 16:00:00 Outpatient Corinne GORMANAGUS MALLORY [facility] [id number] [facility] 2020-09-02 08:45:00 2020-09-02 08:45:00 Outpatient RUFINO MONTALVO [facility] [id number] [facility] 2020-08-28 11:30:00 2020-08-28 11:30:00 Outpatient RUFINO MONTALVO [facility] [id number] [facility] 2020-08-15 00:00:00 2020-08-15 00:00:00 Patient Secure Msg Doctor Unassigned, [place] [facility] [id number] [facility] 2020-08-14 13:15:00 2020-08-14 13:15:00 Outpatient RUFINO MONTALVO [facility] [id number] [facility] 2020-07-16 10:00:00 2020-07-16 10:00:00 Outpatient RUFINO MONTALVO [facility] [id number] [facility] 2020-07-15 13:00:00 2020-07-15 13:00:00 Outpatient R [facility] [id number] [facility] 2020-07-12 11:00:00 2020-07-12 11:00:00 Outpatient P [facility] [id number] [facility] 2020-07-11 11:00:00 2020-07-11 11:00:00 Outpatient R [facility] [id number] [facility] 2020-07-08 14:15:00 2020-07-08 14:15:00 Outpatient RUFINO MONTALVO [facility] [id number] [facility] 2020-07-01 16:15:00 2020-07-01 16:15:00 Outpatient RUFINO MONTALVO [facility] [id number] [facility] 2020-06-27 09:00:00 2020-06-27 09:00:00 Outpatient RUFINO MONTALVO [facility] [id number] [facility] 2020-06-20 09:15:00 2020-06-20 09:15:00 Outpatient RUFINO MONTALVO [facility] [id number] [facility] 2020-06-17 09:00:00 2020-06-17 09:00:00 Outpatient RONY MONTALVOEN [facility] [id number] [facility] 2020-06-17 09:00:00 2020-06-17 09:00:00 Outpatient RUFINO MONTALVO [facility] [id number] [facility] 2020-06-05 08:00:00 2020-06-05 08:00:00 Outpatient R [facility] [id number] [facility] 2020-06-03 14:15:00 2020-06-03 14:15:00 Outpatient R AGUS COLVIN [facility] [id number] [facility] 2020-05-27 11:15:00 2020-05-27 11:15:00 Outpatient R AGUS COLVIN [facility] [id number] [facility] 2020-05-13 11:00:00 2020-05-13 11:00:00 Outpatient RUFINO MONTALVO [facility] [id number] [facility] 2020-05-08 11:00:00 2020-05-08 11:00:00 Outpatient RUFINO MONTALVO [facility] [id number] [facility] 2020-04-10 10:15:00 2020-04-10 10:15:00 Outpatient RUFINO MONTALVO [facility] [id number] [facility] 2020-03-15 13:00:00 2020-03-15 13:00:00 Outpatient R [facility] [id number] [facility] 2020-03-12 13:00:00 2020-03-12 13:00:00 Outpatient AGUS READ [facility] [id number] [facility] 2020-02-13 16:15:00 2020-02-13 16:15:00 Outpatient RUFINO MONTALVO [facility] [id number] [facility] 2020-02-12 08:45:00 2020-02-12 08:45:00 Outpatient RUFINO MONTALVO [facility] [id number] [facility] 2020-02-06 14:30:00 2020-02-06 14:30:00 Outpatient RUFINO MONTALVO [facility] [id number] [facility]
--- NOTE | 2023-04-02 10:34 | RAD REPORT ---
EXAM DESCRIPTION: CT - [id number] - 04/02/2023 9:56 am CLINICAL HISTORY: head injury COMPARISON: No comparisons TECHNIQUE: Axial thin cut noncontrast CT images of the head were obtained. Axial thin cut noncontrast CT images of the cervical spine were obtained. Multiplanar reformatted images were generated and reviewed. All CT scans are performed using dose optimization technique as appropriate and may include automated exposure control or mA/KV adjustment according to patient size. FINDINGS: CT HEAD WITHOUT CONTRAST: No acute hemorrhage, hydrocephalus or extra-axial collection is identified.No areas of brain edema or midline shift. The paranasal sinuses and mastoids are clear.The calvarium is intact. CT CERVICAL SPINE WITHOUT CONTRAST: No fracture or subluxation.No prevertebral soft tissues swelling is identified. IMPRESSION: No acute traumatic intracranial or cervical spine findings.
--- NOTE | 2023-04-02 11:16 | EDPHYS ---
Physician Documentation [facility] Name: Suzanne Venegas Age: 32 yrs Sex: Female : 1990 Arrival Date: 04/02/2023 Time: 09:24 Bed 18 Private MD: ED Physician Melvin Anaya HPI: 04/02 09:26 This 32 yrs old Female presents to ER via Unassigned with complaints of Head sp4 Injury-Adult, Vision Problem. 09:27 PMH - 10:39 Ibuprofen; Red Dye; SHRIMP/CRAWFISH; kr3 PMHx: 10:39 Asthma; Ovarian cyst; sp4 sciatica; Irritable bowel syndrome; bells palsy; shingles; kr3 PSHx: 10:41 Cholecystectomy; "tubes tied"; foot. 09:39 32-year-old female presents with complaint all of right lateral headache and neck pain sp4 and vomiting after fall 2 days ago. Patient reports she fell mostly backward and in the rain. Today she presents with worsening headache and vomiting several times this morning. History of tubal ligation. . 09:39 Patient denied LOC and ambulatory on arrival. sp4 Historical: - Allergies: 09:35 Ibuprofen; ll1 09:35 Red Dye; ll1 09:35 SHRIMP/CRAWFISH; ll1 09:35 Naproxen; ll1 - PMHx: 09:35 Asthma; bells palsy; Irritable bowel syndrome; Ovarian cyst; sciatica; shingles; ll1 - PSHx: 09:35 Cholecystectomy; foot sx; ll1 - Immunization history:: Adult Immunizations up to date. - Social history:: Smoking status: Patient denies any tobacco usage or history of. - Family history:: not pertinent. ROS: 09:39 Constitutional: Negative for fever, chills, and weight loss, positive headache, sp4 positive neck pain, positive vomiting Exam: 09:39 Constitutional: This is a well developed, well nourished patient who is awake, alert, sp4 and in no acute distress. Head/Face: Normocephalic, atraumatic. Eyes: Pupils equal round and reactive to light, extra-ocular motions intact. Lids and lashes normal. Conjunctiva and sclera are not injected. Cornea within normal limits. Periorbital areas with no swelling, redness, or edema. Normal bilateral funduscopy ENT: Nares patent. No nasal discharge, no septal abnormalities noted. Tympanic membranes are normal and external auditory canals are clear. Oropharynx with no redness, swelling, or masses, exudates, or evidence of obstruction, uvula midline. Mucous membranes moist. Neck: Trachea midline, no thyromegaly or masses palpated, and no cervical lymphadenopathy. Supple, full range of motion without nuchal rigidity, or vertebral point tenderness. Chest/axilla: Normal chest wall appearance and motion. Nontender with no deformity. No lesions are appreciated. Cardiovascular: Regular rate and rhythm with a normal S1 and S2. No gallops, murmurs, or rubs. Normal PMI, no JVD. No pulse deficits. Respiratory: Lungs have equal breath sounds bilaterally, clear to auscultation and percussion. No rales, rhonchi or wheezes noted. No increased work of breathing, no retractions or nasal flaring. Abdomen/GI: Soft, non-tender, with normal bowel sounds. No distension or tympany. No guarding or rebound. No evidence of tenderness throughout. Back: No spinal tenderness. No costovertebral tenderness. Skin: Warm, dry with normal turgor. Normal color with no rashes, no lesions, and no evidence of cellulitis. MS/ Extremity: Pulses equal, no cyanosis. Neurovascular intact. Full, normal range of motion. Neuro: Awake and alert, GCS 15, oriented to person, place, time, and situation. Cranial nerves II-XII grossly intact. Motor strength 5/5 in all extremities. Sensory grossly intact. Psych: Awake, alert, with orientation to person, place and time. Behavior, mood, and affect are within normal limits Vital Signs: 09:32 BP 143 / 84; Pulse 70; Resp 16; Temp 98; Pulse Ox 100% ; Pain 8/10; ll1 11:44 BP 143 / 78; Pulse 75; Resp 16; Pulse Ox 98% ; bp 09:32 Pain Scale: Adult ll1 Alonso Coma Score: 09:32 Eye Response: spontaneous(4). Motor Response: obeys commands(6). Verbal Response: ll1 oriented(5). Total: 15. 09:39 Eye Response: spontaneous(4). Motor Response: obeys commands(6). Verbal Response: sp4 oriented(5). Total: 15. MDM: 09:39 Data reviewed: vital signs, nurses notes, radiologic studies, CT scan. sp4 11:14 Differential diagnosis: Contusion of Hematoma on Laceration of Intracranial bleed- sp4 Concussion cerebral contusion. Consideration of Admission/Observation Escalation of care including admission/observation considered. ED course: CT head is negative, CT C-spine is negative. 11:16 Patient medically screened. sp4 04/02 09:36 Order name: CT Head C Spine; Complete Time: 11:03 sp4 Administered Medications: 10:09 Drug: Ketorolac IM 60 mg IM once Route: IM; Site: right gluteus; ll1 11:46 Follow up: Response: No adverse reaction bp 10:09 Drug: Promethazine IM 25 mg IM once Route: IM; Site: left gluteus; ll1 11:46 Follow up: Response: No adverse reaction bp 10:09 Drug: HYDROcodone-acetaminophen PO 5 mg-325 mg 2 tabs PO once Route: PO; ll1 11:47 Follow up: Response: No adverse reaction bp 10:09 Drug: Ondansetron PO 4 mg PO once Route: PO; ll1 11:46 Follow up: Response: No adverse reaction bp 10:10 Drug: Methocarbamol PO 1500 mg PO once Route: PO; ll1 11:47 Follow up: Response: No adverse reaction bp Disposition Summary: 04/02/23 11:16 Discharge Ordered Notes: Location: Home sp4 Problem: new sp4 Symptoms: have improved sp4 Condition: Stable sp4 Diagnosis - Concussion without loss of consciousness sp4 - Acute post-traumatic headache sp4 Followup: sp4 - With: Private Physician - When: As needed - Reason: Recheck today's complaints Discharge Instructions: - Discharge Summary Sheet sp4 - Concussion, Adult, [id number] sp4 Forms: - Work release form eb - Family Work Release eb - Patient Portal Instructions sp4 Prescriptions: - Ibuprofen 800 mg Oral tablet - take 1 tablet ORAL route every 8 hours As needed PRN pain; 30 tablet; Refills: sp4 0, Product Selection Permitted - promethazine 25 mg Oral tablet - take 1 tablet ORAL route every 6 hours As needed PRN nausea; 30 tablet; sp4 Refills: 0, Product Selection Permitted - methocarbamol 750 mg Oral tablet - take 2 tablets ORAL route 3 times per day PRN muscle soreness; 30 tablet; sp4 Refills: 0, Product Selection Permitted Signatures: Dispatcher [employer] Eddie Watts RN RN ll1 Melvin Anaya MD MD sp4 Benjie Colon RN bp
--- NOTE | 2023-04-02 11:16 | ER ---
Nurse's Notes [facility] Name: Suzanne Venegas Age: 32 yrs Sex: Female : 1990 Arrival Date: 04/02/2023 Time: 09:24 Bed 18 Private MD: Diagnosis: Concussion without loss of consciousness;Acute post-traumatic headache Presentation: 04/02 09:32 Chief complaint: Patient states: Slipped on wet surface. Fell onto L knee, then flung ll1 her upper body back while holding her child. + HUSAIN, R sided shoulder/trunk pain since. N/V started this morning. Coronavirus screen: Client denies travel out of the [place] in the last 14 days. At this time, the client does not indicate any symptoms associated with coronavirus-19. Ebola Screen: Patient denies travel to an Ebola-affected area in the 21 days before illness onset. Mechanism of Injury: The problem was sustained at home, resulted from a fall. Initial Sepsis Screen: Does the patient meet any 2 criteria? No. Patient's initial sepsis screen is negative. Does the patient have a suspected source of infection? No. Patient's initial sepsis screen is negative. Risk Assessment: Do you want to hurt yourself or someone else? Patient reports no desire to harm self or others. Onset of symptoms was March 31, 2023. 09:32 Method Of Arrival: Ambulatory 1 09:32 Acuity: AMANDA 3 ll1 Triage Assessment: 09:36 General: Appears uncomfortable, Behavior is calm, cooperative, appropriate for age. ll1 Pain: Complains of pain in R head/shoulder/R trunk Pain currently is 8 out of 10 on a pain scale. Quality of pain is described as aching. Neuro: Level of Consciousness is awake, alert, obeys commands, Oriented to person, place, time, situation, Appropriate for age Moves all extremities. Full function Gait is steady, Speech is normal, Facial symmetry appears normal, Reports headache. Musculoskeletal: Circulation, motion, and sensation intact. Capillary refill < 3 seconds, Reports pain in R shoulder/R trunk. Injury Description: Bruise. Historical: - Allergies: 09:35 Ibuprofen; ll1 09:35 Red Dye; ll1 09:35 SHRIMP/CRAWFISH; ll1 09:35 Naproxen; ll1 - PMHx: 09:35 Asthma; bells palsy; Irritable bowel syndrome; Ovarian cyst; sciatica; shingles; ll1 - PSHx: 09:35 Cholecystectomy; foot sx; ll1 - Immunization history:: Adult Immunizations up to date. - Social history:: Smoking status: Patient denies any tobacco usage or history of. - Family history:: not pertinent. Screenin:33 [facility] ED Fall Risk Assessment (Adult) History of falling in the last 3 months, ll1 including since admission Yes- single mechanical fall (1 pt) Score/Fall Risk Level 0 - 2 = Low Risk Oriented to surroundings, Maintained a safe environment, Educated pt \T\ family on fall prevention, incl call for assistance when getting out of bed, Hourly rounding (assess needs \T\ fall precautionary measures) done. Abuse screen: Denies threats or abuse. Nutritional screening: No deficits noted. Tuberculosis screening: No symptoms or risk factors identified. Assessment: 10:00 General: SEE TRIAGE NOTE. bp 11:43 Reassessment: PT DC HOME AMBULATORY WITH FAMILY. bp Vital Signs: 09:32 BP 143 / 84; Pulse 70; Resp 16; Temp 98; Pulse Ox 100% ; Pain 8/10; ll1 11:44 BP 143 / 78; Pulse 75; Resp 16; Pulse Ox 98% ; bp 09:32 Pain Scale: Adult ll1 Newell Coma Score: 09:32 Eye Response: spontaneous(4). Motor Response: obeys commands(6). Verbal Response: ll1 oriented(5). Total: 15. 09:39 Eye Response: spontaneous(4). Motor Response: obeys commands(6). Verbal Response: sp4 oriented(5). Total: 15. ED Course: 09:26 Patient arrived in ED. rg4 09:26 Melvin Anaya MD is Attending Physician. sp4 09:35 Triage completed. ll1 09:36 Arm band placed on Patient placed in an exam room, on a stretcher. ll1 09:40 Provided Education on: ER procedures and process. ll1 09:57 CT Head C Spine In Process Unspecified. EDMS 10:17 Benjie Colon, RN is Primary Nurse. bp 11:46 No provider procedures requiring assistance completed. Patient did not have IV access bp during this emergency room visit. Administered Medications: 10:09 Drug: Ketorolac IM 60 mg IM once Route: IM; Site: right gluteus; ll1 11:46 Follow up: Response: No adverse reaction bp 10:09 Drug: Promethazine IM 25 mg IM once Route: IM; Site: left gluteus; ll1 11:46 Follow up: Response: No adverse reaction bp 10:09 Drug: HYDROcodone-acetaminophen PO 5 mg-325 mg 2 tabs PO once Route: PO; ll1 11:47 Follow up: Response: No adverse reaction bp 10:09 Drug: Ondansetron PO 4 mg PO once Route: PO; ll1 11:46 Follow up: Response: No adverse reaction bp 10:10 Drug: Methocarbamol PO 1500 mg PO once Route: PO; ll1 11:47 Follow up: Response: No adverse reaction bp Medication: 10:33 VIS not applicable for this client. ll1 Outcome: 11:16 Discharge ordered by . sp4 11:46 Discharged to home ambulatory, with family, bp 11:46 Condition: stable 11:46 Discharge instructions given to patient, family, Instructed on discharge instructions, follow up and referral plans. medication usage, Demonstrated understanding of instructions, follow-up care, medications, Prescriptions given X 3, 11:47 Patient left the ED. bp Signatures: Dispatcher [employer] EDMS Suzanne Gomez rg4 Benjie Colon RN RN Eddie Molina RN RN ll1 Melvin Anaya MD MD sp4 Corrections: (The following items were deleted from the chart) 10:33 09:32 BP 143 / 84; Pulse 70bpm; Resp 16bpm; Pulse Ox 100%; ll1 ll1
[2023-04-02 12:30] VITALS: BP 143/78; TEMP 98; O2SAT 98
== END ==
LOC: ER 09:24
DX: S06.0X0A Concussion without loss of consciousness, initial encounter (principal); G44.319 Acute post-traumatic headache, not intractable
CPT/HCPCS: 70450; 72125; J2550; Q0162

== ENCOUNTER 2024-01-11 19:02 | Emergency (ER) | payer SELFPAY ==
--- OUTSIDE RECORDS SUMMARY | 2024-01-11 19:05 | XMS REPORT | Continuity of Care Document ---
Author Name Unknown Address [address] [facility] [address] [place] [id number] [facility] thconnect Address [address] [facility] [address] [place] [address] Care Team Providers Care Conservator Artifacts Name Role Phone Rufino Murray MD Primary Care Physician [phone] RUFINO MURRAY Attending Clinician Unavailable [email or web address] Attending Clinician Unavaila ble Doctor Unassigned, [place] Attending Clinician U AGUS Lr Attending Clinician Unavailable RUFINO MURRAY Admitting Clinician Unavailable [email or web address] Admitting Clinician Unavaila ble Payers Payer Name Policy Type Policy Number Effective Date Expirati on Date Source [facility] [id number] 2020 00:00:00 [place]ID [place] [id number] 2020 00:00:00 [facility] MEDICA[employer] [id number] 2017 00:00:00 Problems Condition Name Condition Details Condition Category Status Onset Date Resolution Date Last Treatment Date Treating Clinician Comments Source Rash and other nonspecifi c skin eruption Rash and other nonspecifi c skin eruption Disease Active 09-18 00:00: 00 [facility] 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 Disease Active - 00:00: 00 [facility] Current moderate episode of major depressive disorder without prior episode Current moderate episode of major depressive disorder without prior episode Disease Active 08-18 00:00: 00 [facility] Obesity (BMI 30-39.9) Obesity (BMI 30-39.9) Disease Active 2016-03 00:00: 00 [facility] Allergies, Adverse Reactions, Alerts Allergy Name Allergy Type Status Severity Reaction(s) Onset Date Inactive Date Treating Clinician Comments Source IBUPROFE N DRUG INGREDI Active Rash 2013-03 00:00: 00 [facility] NAPROXEN DRUG INGREDI Active Other-Cmnt 2013-03 00:00: 00 [facility] RED DYE DRUG INGREDI Active Other-Cmnt 2013-03 00:00: 00 [facility] Red Dye Propensi ty to adverse reaction s Active Other - See comments 2013-03 00:00: 00 Red dye #40 : pt states gives her extreme "bad" headaches . [facility] Social History Social Habit Start Date Stop Date Quantity Comments Source History of tobacco use Cigarette Smoker [facility] Sexual orientation [facility] Exposure to SARS-CoV-2 (event) 2020-08-19 00:00:00 2020-09-18 13:01:00 Not sure [facility] History of Social function 2020-09-03 00:00:00 2020-09-03 00:00:00 [facility] Alcohol intake 2020-08-14 00:00:00 2020-08-14 00:00:00 Current non-drinker of alcohol (finding) [facility] Tobacco use and exposure 2017-01-04 00:00:00 2017-01-04 00:00:00 Smokeless tobacco non-user [facility] Sex Assigned At 1990 00:00:00 1990 00:00:00 [facility] Smoking Status Start Date Stop Date Source Ex-smoker 2017-01-04 00:00:00 2017-01-04 00:00:00 [facility] Medications Ordered Medication Name Filled Medication Name Start Date Stop Date Current Medication? Ordering Clinician Indication Dosage Frequency Signature (SIG) Comments Components Source FLUoxetine 20 mg capsule 09-18 00:00: 00 Yes [id number] 20mg Take 1 capsule by mouth daily. [facility] hydrOXYzine 25 mg tablet 09-12 00:00: 00 Yes [id number] 25mg Take 1 tablet by mouth every 6 (six) hours. [facility] triamcinolo ne acetonide 0.1 % ointment 08-28 00:00: 00 Yes [id number] Apply to area(s) 2 (two) times daily. [facility] Immunizations Ordered Immunization Name Filled Immunization Name Date Status Comments Source TDAP Unknown Completed [facility] TDAP Unknown Completed [facility] Encounters Start Date/Time End Date/Time Encounter Type Admission Type Attending [facility] Facility Care Department Encounter ID Source 2021-01-06 00:39:27 Outpatient RUFINO MONTALVO [facility] [id number] [facility] 2021-01-05 18:22:09 Outpatient P [facility]USE[facility] [id number] [facility] 2021-01-05 09:38:22 Outpatient P [facility] [id number] [facility] 2021-01-05 09:18:24 Outpatient P [facility] [id number] [facility] 2023-01-05 00:00:00 2023-01-05 00:00:00 Outpatient [email or web address] [facility] [id number] [facility] 2020-12-19 13:30:00 2020-12-19 13:30:00 Outpatient RUFINO MONTALVO [facility] [id number] [facility] 2020-09-24 00:00:00 2020-09-24 00:00:00 Patient Secure Msg Doctor Unassigned, [place] [facility] [id number] [facility] 2020-09-18 13:00:00 2020-09-18 13:00:00 Outpatient RUFINO MONTALVO [facility] [id number] [facility] 2020-09-12 16:00:00 2020-09-12 16:00:00 Outpatient GAUS READ [facility] [id number] [facility] 2020-09-02 08:45:00 2020-09-02 08:45:00 Outpatient RUFINO MONTALVO [facility] [id number] [facility] 2020-08-28 11:30:00 2020-08-28 11:30:00 Outpatient RUFINO MONTALVO [facility] [id number] [facility] 2020-08-15 00:00:00 2020-08-15 00:00:00 Patient Secure Msg Doctor Unassigned, [place] [facility] [id number] [facility] 2020-08-14 13:15:00 2020-08-14 13:15:00 Outpatient RUFINO MONTALVO [facility] [id number] [facility] 2020-07-16 10:00:00 2020-07-16 10:00:00 Outpatient R RUFINO MURRAY [facility] [id number] [facility] 2020-07-15 13:00:00 2020-07-15 13:00:00 Outpatient R [facility] [id number] [facility] 2020-07-12 11:00:00 2020-07-12 11:00:00 Outpatient P [facility] [id number] [facility] 2020-07-11 11:00:00 2020-07-11 11:00:00 Outpatient R [facility] [id number] [facility] 2020-07-08 14:15:00 2020-07-08 14:15:00 Outpatient RUFINO MONTALVO [facility] [id number] [facility] 2020-07-01 16:15:00 2020-07-01 16:15:00 Outpatient RUFINO MONTALVO [facility] [id number] [facility] 2020-06-27 09:00:00 2020-06-27 09:00:00 Outpatient RUFINO MONTALVO [facility] [id number] [facility] 2020-06-20 09:15:00 2020-06-20 09:15:00 Outpatient R RUFINO MURRAY [facility] [id number] [facility] 2020-06-17 09:00:00 2020-06-17 09:00:00 Outpatient R RUFINO MURRAY [facility] [id number] [facility] 2020-06-17 09:00:00 2020-06-17 09:00:00 Outpatient R RUFINO MURRAY [facility] [id number] [facility] 2020-06-05 08:00:00 2020-06-05 08:00:00 Outpatient R [facility] [id number] [facility] 2020-06-03 14:15:00 2020-06-03 14:15:00 Outpatient R AGUS COLVIN [facility] [id number] [facility] 2020-05-27 11:15:00 2020-05-27 11:15:00 Outpatient R AGUS COLVIN [facility] [id number] [facility] 2020-05-13 11:00:00 2020-05-13 11:00:00 Outpatient Corinne RUFINO MURRAY [facility] [id number] [facility] 2020-05-08 11:00:00 2020-05-08 11:00:00 Outpatient R RUFINO MURRAY [facility] [id number] [facility] 2020-04-10 10:15:00 2020-04-10 10:15:00 Outpatient R RUFINO MURRAY [facility] [id number] [facility] 2020-03-15 13:00:00 2020-03-15 13:00:00 Outpatient R [facility] [id number] [facility] 2020-03-12 13:00:00 2020-03-12 13:00:00 Outpatient AGUS READ [facility] [id number] [facility] 2020-02-13 16:15:00 2020-02-13 16:15:00 Outpatient RUFINO MONTALVO [facility] [id number] [facility] 2020-02-12 08:45:00 2020-02-12 08:45:00 Outpatient RUFINO MONTALVO [facility] [id number] [facility] 2020-02-06 14:30:00 2020-02-06 14:30:00 Outpatient RUFINO MONTALVO [facility] [id number] [facility]
[2024-01-11] MEDS ORDERED: ONDANSETRON 4 MG/2 ML VIAL ONE (20:07)
[2024-01-11] MEDS ORDERED: NA CHLORIDE 0.9% 1,000 ML ONE (20:08)
[2024-01-11] MEDS ORDERED: KETOROLAC 30 MG/ML INJ ONE (20:08)
--- NOTE | 2024-01-11 20:25 | RAD REPORT ---
EXAMINATION: ONE VIEW CHEST XR CLINICAL INDICATION: CHEST PAIN TECHNIQUE: Frontal chest projection is submitted. Examination is limited by patient positioning and t echnique. COMPARISON: 03/07/2016 FINDINGS: The lungs are well inflated and clear. The heart is normal in size. No displaced fractures identified . IMPRESSION: No acute intrathoracic abnormalities.
[2024-01-11 20:49] LABS: Specific Gravity 1.028 (1.005-1.030); Urine Bilirubin NEGATIVE (Negative); Urine Blood Negative (Negative); Urine Clarity Clear (Clear); Urine Color Light-Yellow (Yellow); Urine Glucose NEGATIVE (Negative); Urine Ketones NEGATIVE (Negative); Urine Microscopic Reflex YN NO UMIC; Urine Nitrite NEGATIVE (Negative); Urine Protein NEGATIVE (Negative); Urine Urobilinogen 1+ (Normal)
[2024-01-11 20:50] LABS: Absolute Eosinophils 0.1 K/uL (0-0.5); Absolute Lymphocytes (CBC) 2.3 K/uL (0.7-4.9); Absolute Monocytes 0.4 K/uL (0.1-1.3); Absolute Neutrophil 4.6 K/uL (1.8-8.0); Basophils % 0.5 % (0-1.3); Eosinophils % 1.9 % (0-4.4); Hematocrit 41.6 % (36.0-45.0); Hemoglobin 14.2 g/dL (12.0-15.0); Lymphocytes % 30.6 % (15.3-44.8); MCH 27.9 pg (27.0-35.0); MCHC 34.2 g/dL (32.0-36.0); MCV 81.4 fL (80-100); MPV 8.4 fL (7.6-11.3); Monocytes % 5.6 % (3.3-12.3); Neutrophils % 61.4 % (41.7-73.7); Nucleated Red Blood Cells % 0.2 % (0-0); Platelets 303 thou/uL (152-406); RBC Red Blood Cell Count 5.11 M/uL (3.86-4.86); Red Cell Distribution Width 13.4 % (12.1-15.2)
[2024-01-11 20:52] LABS: Specific Gravity 1.028 (1.005-1.030)
[2024-01-11 21:08] LABS: Albumin 3.6 g/dL (3.4-5.0); Albumin/Globulin Ratio 0.8 (1.1-1.8); Anion Gap 9.2 mEq/L (5.0-15.0); Bilirubin Total 0.3 mg/dL (0.2-1.0); Globulin 4.6 g/dL (2.3-3.5); Potassium 3.2 mEq/L (3.5-5.1); Protein, Total 8.2 g/dL (6.4-8.2)
--- NOTE | 2024-01-11 21:34 | RAD REPORT ---
EXAMINATION: CT ABDOMEN AND PELVIS WITHOUT CONTRAST CLINICAL INDICATION: ABD PAIN TECHNIQUE: CT abdomen and pelvis was performed, without IV contrast, as per department protocol. Axia l, sagittal and coronal reconstructions were obtained. One or more of the following dose reduction techniques were used: Automated exposure control, adjustment of the mA and kV according to the patien t size, and iterative reconstruction. Unless otherwise specified, incidental findings do not require dedicated imaging follow-up. COMPARISON: No prior exam. FINDINGS: The lack of intravenous contrast limits the sensitivity of this exam for evaluation of solid visceral organs, vascular structures, and retroperitoneum. LOWER CHEST: The visualized lung bases are clear. LIVER:Normal in size and contour. No focal lesion. Cholecystectomy clips. SPLEEN: Normal size. No focal lesion. PANCREAS: No mass, ductal dilation, or vannesa-pancreatic fluid. ADRENALS: Normal; no mass. KIDNEYS AND URETERS: Normal size and contour. No hydronephrosis. URINARY BLADDER: Normal contour. GASTROINTESTINAL TRACT: No evidence of bowel obstruction, significant free fluid, free air or abscess . APPENDIX: Normal appendix. LYMPH NODES: No lymphadenopathy. MUSCULOSKELETAL: No acute or suspicious osseous abnormality. ADDITIONAL FINDINGS: None. IMPRESSION: No acute or concerning abnormalities in the abdomen or pelvis, with evaluation limited by lack of IV contrast.
--- NOTE | 2024-01-11 21:48 | ER ---
Nurse's Notes [facility] Name: Suzanne Venegas Age: 33 yrs Sex: Female : 1990 Arrival Date: 01/11/2024 Time: 19:02 Bed 14 Private MD: Diagnosis: Abdominal pain, Generalized Presentation: 01/10 19:15 Chief complaint: Patient states: left sided pain x3 days, gradually getting worse. tm6 Upper back also started to hurt. Right sided chest pain x3 days. Nausea. Coronavirus screen: Vaccine status: Patient reports being unvaccinated. Client denies travel out of the [place] in the last 14 days. Ebola Screen: Patient negative for fever greater than or equal to 101.5 degrees Fahrenheit, and additional compatible Ebola Virus Disease symptoms Patient denies exposure to infectious person. Patient denies travel to an Ebola-affected area in the 21 days before illness onset. No symptoms or risks identified at this time. Initial Sepsis Screen: Does the patient meet any 2 criteria? No. Patient's initial sepsis screen is negative. Does the patient have a suspected source of infection? No. Patient's initial sepsis screen is negative. Risk Assessment: Do you want to hurt yourself or someone else? Patient reports no desire to harm self or others. Onset of symptoms was January 08, 2024. 19:15 Method Of Arrival: Ambulatory tm6 19:15 Acuity: AMANDA 3 tm6 Triage Assessment: 19:16 General: Appears uncomfortable, Behavior is calm, cooperative. Pain: Complains of pain tm6 in anterior aspect of right upper chest, posterior aspect of left lateral abdomen and anterior aspect of left lateral abdomen Pain currently is 6 out of 10 on a pain scale. at worst was 10 out of 10 on a pain scale. Quality of pain is described as throbbing, Pain began 2-3 days ago. EENT: No signs and/or symptoms were reported regarding the EENT system. Neuro: Level of Consciousness is awake, alert, obeys commands, Oriented to person, place, time, situation. Cardiovascular: Reports chest pain, since three days ago Patient's skin is warm and dry. Respiratory: Airway is patent Respiratory effort is even, unlabored, Respiratory pattern is regular, symmetrical. GI: Abdomen is round Reports nausea. : Reports pain in left flank(s), since three days ago. Derm: No signs and/or symptoms reported regarding the dermatologic system. Musculoskeletal: Reports pain in thoracic area since three days ago. Pain is 6 out of 10 on a pain scale. Historical: - Allergies: 19:16 Red Dye; tm6 19:22 SHELLFISH; tm6 - PMHx: 19:16 Asthma; bells palsy; bells palsy; Irritable bowel syndrome; Ovarian cyst; sciatica; tm6 shingles; - PSHx: 19:16 foot sx; Cholecystectomy; tm6 - Immunization history:: Client reports having NOT received the Covid vaccine. - Infectious Disease History:: Denies. - Social history:: Smoking status: Patient denies any tobacco usage or history of. Patient/guardian denies using alcohol. Screenin:33 [facility] ED Fall Risk Assessment (Adult) History of falling in the last 3 months, jb4 including since admission No falls in past 3 months (0 pts) Confusion or Disorientation No (0 pts) Intoxicated or Sedated No (0 pts) Impaired Gait No (0 pts) Mobility Assist Device Used No (0 pt) Altered Elimination No (0 pt) Score/Fall Risk Level 0 - 2 = Low Risk Oriented to surroundings, Maintained a safe environment. Abuse screen: Denies threats or abuse. Nutritional screening: No deficits noted. Tuberculosis screening: No symptoms or risk factors identified. Assessment: 20:33 General: Appears in no apparent distress. uncomfortable, Behavior is calm, cooperative, jb4 appropriate for age. Pain: Complains of pain in posterior aspect of right lateral abdomen and anterior aspect of left lateral abdomen Pain does not radiate. Pain currently is 6 out of 10 on a pain scale. Neuro: Level of Consciousness is awake, alert, obeys commands, Oriented to person, place, time, situation. Cardiovascular: Patient's skin is warm and dry. Respiratory: Airway is patent Respiratory effort is even, unlabored, Respiratory pattern is regular, symmetrical. Derm: Skin is intact, Skin is pink, warm \T\ dry. Musculoskeletal: Circulation, motion, and sensation intact. Range of motion: intact in all extremities. 22:20 Reassessment: Patient appears in no apparent distress at this time. Patient and/or jb4 family updated on plan of care and expected duration. Pain level reassessed. Patient is alert, oriented x 3, equal unlabored respirations, skin warm/dry/pink. Vital Signs: 19:15 BP 156 / 83; Pulse 80; Resp 19; Temp 98.5(O); Pulse Ox 99% ; MAP 104 mmHg; Weight 81.65 tm6 kg; Height 5 ft. 0 in. ; Pain 6/10; 19:15 Body Mass Index 35.15 (81.65 kg, 152.4 cm) tm6 19:15 Pain Scale: Adult tm6 ED Course: 19:04 Patient arrived in ED. im 19:04 [facility]igh Baker [facility]C [facility] kb 19:04 Monik Quinonez MD is Attending Physician. kb 19:16 Triage completed. tm6 19:16 Arm band placed on right wrist. tm6 20:17 Chest Single View XRAY In Process Unspecified. EDMS 20:30 No provider procedures requiring assistance completed. Inserted saline lock: 22 gauge jb4 in right wrist, using aseptic technique. 20:32 Berto Enamorado, RN is Primary Nurse. jb4 20:33 Patient has correct armband on for positive identification. Bed in low position. Call jb4 light in reach. Side rails up X 1. Provided Education on: plan of care. 21:26 CT Abd/Pelvis - Without Contrast In Process Unspecified. EDMS 22:20 IV discontinued, intact, bleeding controlled, No redness/swelling at site. Pressure jb4 dressing applied. Administered Medications: 20:30 Drug: TORadol - Ketorolac IVP 15 mg IVP once Route: IVP; Site: right wrist; jb4 21:00 Follow up: Response: No adverse reaction; Marked relief of symptoms; Pain is decreased jb4 20:30 Drug: NS 0.9% IV 1000 ml IV at 1 bolus Per protocol; to be given as a bolus over 60 jb4 minutes Route: IV; Rate: 1 bolus; Site: right wrist; 21:30 Follow up: Response: No adverse reaction; IV Status: Completed infusion; IV Intake: jb4 1000ml 20:31 Drug: Ondansetron IVP 4 mg IVP once; over 2 minutes Route: IVP; Site: right wrist; jb4 21:00 Follow up: Response: No adverse reaction; Marked relief of symptoms jb4 Medication: 20:33 VIS not applicable for this client. jb4 Intake: 21:30 IV: 1000ml; Total: 1000ml. jb4 Outcome: 21:47 Discharge ordered by . dayana 22:20 Discharged to home ambulatory, jb4 22:20 Condition: stable 22:20 Discharge instructions given to patient, Instructed on discharge instructions, follow up and referral plans. medication usage, Demonstrated understanding of instructions, follow-up care, medications, Prescriptions given X 2, 22:21 Patient left the ED. jb4 Signatures: Dispatcher [employer] EDGA Kyleigh Baker, MOLDED RUBBER GOODS CUTTER-C MOLDED RUBBER GOODS CUTTER-Berto Haas, RN RN jb4 Bethany Kaminski Tawney, RN RN tm6 Corrections: (The following items were deleted from the chart) 19: 19:16 Allergies: Ibuprofen; tm6 tm6 19:22 19:16 Allergies: Naproxen; tm6 tm6 19:22 19:16 Allergies: SHRIMP/CRAWFISH; tm6 tm6
--- NOTE | 2024-01-11 21:48 | EDPHYS ---
Physician Documentation [facility] Name: Suzanne Venegas Age: 33 yrs Sex: Female : 1990 Arrival Date: 01/11/2024 Time: 19:02 Bed 14 Private MD: ED Physician Monik Quinonez HPI: 01/10 21:45 This 33 yrs old Female presents to ER via Ambulatory with complaints of Low kb Back Pain, Flank Pain. 21:46 Pt is a 33 year old female who presents for left abd pain with nausea that started 3 kb days ago and has progressively gotten worse. Also reports pain to right upper back that radiates around to chest. Denies vomiting, diarrhea, fever. . Historical: - Allergies: 19:16 Red Dye; tm6 19:22 SHELLFISH; tm6 - PMHx: 19:16 Asthma; bells palsy; bells palsy; Irritable bowel syndrome; Ovarian cyst; sciatica; tm6 shingles; - PSHx: 19:16 foot sx; Cholecystectomy; tm6 - Immunization history:: Client reports having NOT received the Covid vaccine. - Infectious Disease History:: Denies. - Social history:: Smoking status: Patient denies any tobacco usage or history of. Patient/guardian denies using alcohol. ROS: 21:45 Constitutional: As per HPI kb Exam: 21:45 Constitutional: This is a well developed, well nourished patient who is awake, alert, kb and in no acute distress. Head/Face: Normocephalic, atraumatic. ENT: Moist Mucous membranes Cardiovascular: Regular rate Respiratory: Respirations even and unlabored. No increased work of breathing. Talking in full sentences Skin: Warm, dry with normal turgor. Normal color. MS/ Extremity: Pulses equal, no cyanosis. Neurovascular intact. Full, normal range of motion. Neuro: Awake and alert, GCS 15, oriented to person, place, time, and situation. 21:45 Abdomen/GI: Inspection: abdomen appears normal, Bowel sounds: normal, Palpation: soft, in all quadrants, mild abdominal tenderness, in the left upper quadrant and left lower quadrant, 21:45 Back: CVA tenderness, that is mild, is noted bilaterally, Vital Signs: 19:15 BP 156 / 83; Pulse 80; Resp 19; Temp 98.5(O); Pulse Ox 99% ; MAP 104 mmHg; Weight 81.65 tm6 kg; Height 5 ft. 0 in. ; Pain 6/10; 19:15 Body Mass Index 35.15 (81.65 kg, 152.4 cm) tm6 19:15 Pain Scale: Adult tm6 MDM: 19:04 Medical Screening Exam initiated kb 21:46 Differential diagnosis: gastritis, non-specific abd pain, pancreatitis, Pyelonephritis, kb Ureterolithiasis, urinary tract infection. Data reviewed: vital signs, nurses notes. Counseling: I had a detailed discussion with the patient and/or guardian regarding the historical points, exam findings, and any diagnostic results supporting the discharge/admit diagnosis, lab results, radiology results, the need for outpatient follow up, a family practitioner, to return to the emergency department if symptoms worsen or persist or if there are any questions or concerns that arise at home. 01/10 19:29 Order name: CBC with Diff; Complete Time: 21:01 kb 01/10 19:29 Order name: CMP; Complete Time: 21:25 kb 01/10 19:29 Order name: Lipase; Complete Time: 21:25 kb 01/10 19:29 Order name: Test, Urine; Complete Time: 20:55 kb 01/10 19:29 Order name: Urinalysis w/ reflexes kb 01/10 19:29 Order name: CT Abd/Pelvis - Without Contrast; Complete Time: 21:37 kb 01/10 19:29 Order name: Chest Single View XRAY; Complete Time: 20:48 kb 01/10 19:29 Order name: IV Saline Lock; Complete Time: 20:31 kb 01/10 19:29 Order name: Labs collected and sent; Complete Time: 20:31 kb Administered Medications: 20:30 Drug: TORadol - Ketorolac IVP 15 mg IVP once Route: IVP; Site: right wrist; jb4 21:00 Follow up: Response: No adverse reaction; Marked relief of symptoms; Pain is decreased jb4 20:30 Drug: NS 0.9% IV 1000 ml IV at 1 bolus Per protocol; to be given as a bolus over 60 jb4 minutes Route: IV; Rate: 1 bolus; Site: right wrist; 21:30 Follow up: Response: No adverse reaction; IV Status: Completed infusion; IV Intake: jb4 1000ml 20:31 Drug: Ondansetron IVP 4 mg IVP once; over 2 minutes Route: IVP; Site: right wrist; jb4 21:00 Follow up: Response: No adverse reaction; Marked relief of symptoms jb4 Disposition Summary: 01/11/24 21:47 Discharge Ordered Notes: Location: Home kb Condition: Stable kb Diagnosis - Abdominal pain, Generalized kb Followup: kb - With: Emergency Department - When: As needed - Reason: Worsening of condition Followup: kb - With: Private Physician - When: 2 - 3 days - Reason: Recheck today's complaints, Continuance of care, Re-evaluation by your physician Discharge Instructions: - Discharge Summary Sheet kb - Abdominal Pain, Adult, [id number] kb Forms: - Medication Reconciliation Form kb - Antibiotic Education kb - Prescription Opioid Use kb - Patient Portal Instructions kb - Leadership Thank You Letter kb Prescriptions: - Zofran 4 mg Oral tablet - take 1 tablet ORAL route every 6 hours As needed; 12 tablet; Refills: 0, kb Product Selection Permitted - Diclofenac Sodium 75 mg Oral tablet, delayed release (enteric coated) - take 1 tablet ORAL route 2 times per day As needed; 30 tablet; Refills: 0, kb Product Selection Permitted Signatures: Dispatcher [employer] EDKyleigh Saldaña, LAVON-C RETAIL INTERIOR DESIGNER-Berto Haas, RN RN jb4 Patricia Baez, RN RN tm6 Corrections: (The following items were deleted from the chart) 19:22 19:16 Allergies: Ibuprofen; tm6 tm6 19:22 19:16 Allergies: Naproxen; tm6 tm6 19:22 19:16 Allergies: SHRIMP/CRAWFISH; tm6 tm6 19:30 19:30 CBC+H.LAB.BRZ ordered. EDMS EDMS 19:30 19:30 COMPREHENSIVE METABOLIC PANEL+C.LAB.BRZ ordered. EDMS EDMS 19:30 19:30 LIPASE+C.LAB.BRZ ordered. EDMS EDMS 19:30 19:30 Test, Urine+UC.LAB.BRZ ordered. EDMS EDMS 19:30 19:30 Urinalysis+U.LAB.BRZ ordered. EDMS EDMS
[2024-01-11 22:39] VITALS: BP 156/83; TEMP 98.5; O2SAT 99
== END 2024-01-11 22:21 | disposition home or self-care (01) ==
LOC: ER 19:02
DX: R10.84 Generalized abdominal pain (principal)
CPT/HCPCS: 36415; 71045; 74176; 80053; 81003; 81025; 83690; 85025; 96361; 96374; 96375; 99284; J2405; J7030

== ENCOUNTER 2024-03-09 15:20 | Emergency (ER) | payer SELFPAY ==
--- OUTSIDE RECORDS SUMMARY | 2024-03-09 15:24 | XMS REPORT | Continuity of Care Document ---
Author Name Unknown Address [address] [facility]. [address] [place] [address] [facility] thconnect Address [address] [facility] [address] [place] [address] Care Team Providers Care Pre Billing Specialist Name Role Phone Rufino Murray MD Primary Care Physician [phone] RUFINO MURRAY Attending Clinician Unavailable [email or web address] Attending Clinician Unavaila ble Doctor Unassigned, [place] Attending Clinician U AGUS Lr Attending Clinician Unavailable RUFINO MURRAY Admitting Clinician Unavailable [email or web address] Admitting Clinician Unavaila ble Payers Payer Name Policy Type Policy Number Effective Date Expirati on Date Source [facility] [id number] 2020 00:00:00 [place]ID [place] [id number] 2020 00:00:00 [employer] MEDICA[employer] [id number] 2017 00:00:00 Problems Condition Name Condition Details Condition Category Status Onset Date Resolution Date Last Treatment Date Treating Clinician Comments Source Rash and other nonspecifi c skin eruption Rash and other nonspecifi c skin eruption Disease Active 09-18 00:00: 00 [facility] 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 Disease Active - 00:00: 00 [facility] Current moderate episode of major depressive disorder without prior episode Current moderate episode of major depressive disorder without prior episode Disease Active 08-18 00:00: 00 [facility] Obesity (BMI 30-39.9) Obesity (BMI 30-39.9) Disease Active 2016-03 00:00: 00 [facility] Allergies, Adverse Reactions, Alerts Allergy Name Allergy Type Status Severity Reaction(s) Onset Date Inactive Date Treating Clinician Comments Source IBUPROFE N DRUG INGREDI Active Rash 2013-03 00:00: 00 [facility] NAPROXEN DRUG INGREDI Active Other-Cmnt 2013-03 00:00: 00 [facility] RED DYE DRUG INGREDI Active Other-Cmnt 2013-03 00:00: 00 [facility] Red Dye Propensi ty to adverse reaction s Active Other - See comments 2013-03 00:00: 00 Red dye #40 : pt states gives her extreme "bad" headaches . [facility] Social History Social Habit Start Date Stop Date Quantity Comments Source History of tobacco use Cigarette Smoker [facility] Sexual orientation [facility] Exposure to SARS-CoV-2 (event) 2020-08-19 00:00:00 2020-09-18 13:01:[address] [facility] History of Social function 2020-09-03 00:00:00 2020-09-03 00:00:00 [facility] Alcohol intake 2020-08-14 00:00:00 2020-08-14 00:00:00 Current non-drinker of alcohol (finding) [facility] Tobacco use and exposure 2017-01-04 00:00:00 2017-01-04 00:00:00 Smokeless tobacco non-user [facility] Sex Assigned At 1990 00:00:00 1990 00:00:00 [facility] Smoking Status Start Date Stop Date Source Ex-smoker 2017-01-04 00:00:00 2017-01-04 00:00:00 [facility] Medications Ordered Medication Name Filled Medication Name Start Date Stop Date Current Medication? Ordering Clinician Indication Dosage Frequency Signature (SIG) Comments Components Source FLUoxetine 20 mg capsule 09-18 00:00: 00 Yes [id number] 20mg Take 1 capsule by mouth daily. [facility] hydrOXYzine 25 mg tablet 09-12 00:00: 00 Yes [id number] 25mg Take 1 tablet by mouth every 6 (six) hours. [facility] triamcinolo ne acetonide 0.1 % ointment 08-28 00:00: 00 Yes [id number] Apply to area(s) 2 (two) times daily. [facility] Immunizations Ordered Immunization Name Filled Immunization Name Date Status Comments Source TDAP Unknown Completed [facility] TDAP Unknown Completed [facility] Encounters Start Date/Time End Date/Time Encounter Type Admission Type Attending [facility] Care Department Encounter ID Source 2021-01-06 00:39:27 Outpatient RUFINO MONTALVO 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 GIUSEPPE [id number] [facility] 2021-01-05 09:38:[address] [facility] GIUSEPPE [id number] [facility] 2021-01-05 09:18:[address] [facility] GIUSEPPE [id number] [facility] 2023-01-05 00:00:00 2023-01-05 00:00:00 Outpatient [email or web address] [facility] [id number] [facility] 2020-12-19 13:30:00 2020-12-19 13:30:00 Outpatient RUFINO MONTALVO [facility] [id number] [facility] 2020-09-24 00:00:00 2020-09-24 00:00:00 Patient Secure Msg Doctor Unassigned, Ehrenberg [facility] [id number] [facility] 2020-09-18 13:00:00 2020-09-18 13:00:00 Outpatient RUFINO MONTALVO [facility] [id number] [facility] 2020-09-12 16:00:00 2020-09-12 16:00:00 Outpatient AGUS READ [facility] [id number] [facility] 2020-09-02 08:45:00 2020-09-02 08:45:00 Outpatient RUFINO MONTALVO [facility] [id number] [facility] 2020-08-28 11:30:00 2020-08-28 11:30:00 Outpatient RUFINO MONTALVO [facility] [id number] [facility] 2020-08-15 00:00:00 2020-08-15 00:00:00 Patient Secure Msg Doctor Unassigned, Ehrenberg [facility] [id number] [facility] 2020-08-14 13:15:00 2020-08-14 13:15:00 Outpatient RUFINO MONTALVO [facility] [id number] [facility] 2020-07-16 10:00:00 2020-07-16 10:00:00 Outpatient R RUFINO MURRAY [facility] [id number] [facility] 2020-07-15 13:00:00 2020-07-15 13:00:00 Outpatient R [facility] [id number] [facility] 2020-07-12 11:00:00 2020-07-12 11:00:00 Outpatient P [facility] [id number] [facility] 2020-07-11 11:00:00 2020-07-11 11:00:00 Outpatient R [facility] [id number] [facility] 2020-07-08 14:15:00 2020-07-08 14:15:00 Outpatient RUFINO MONTALVO [facility] [id number] [facility] 2020-07-01 16:15:00 2020-07-01 16:15:00 Outpatient RUFINO MONTALVO [facility] [id number] [facility] 2020-06-27 09:00:00 2020-06-27 09:00:00 Outpatient RUFINO MONTALVO [facility] [id number] [facility] 2020-06-20 09:15:00 2020-06-20 09:15:00 Outpatient R RUFINO MURRAY [facility] [id number] [facility] 2020-06-17 09:00:00 2020-06-17 09:00:00 Outpatient R RUFINO MURRAY [facility] [id number] [facility] 2020-06-17 09:00:00 2020-06-17 09:00:00 Outpatient R RUFINO MURRAY [facility] [id number] [facility] 2020-06-05 08:00:00 2020-06-05 08:00:00 Outpatient R [facility] [id number] [facility] 2020-06-03 14:15:00 2020-06-03 14:15:00 Outpatient R AGUS COLVIN [facility] [id number] [facility] 2020-05-27 11:15:00 2020-05-27 11:15:00 Outpatient R AGUS COLVIN [facility] [id number] [facility] 2020-05-13 11:00:00 2020-05-13 11:00:00 Outpatient Corinne RUFINO MURRAY [facility] [id number] [facility] 2020-05-08 11:00:00 2020-05-08 11:00:00 Outpatient R RUFINO MURRAY [facility] [id number] [facility] 2020-04-10 10:15:00 2020-04-10 10:15:00 Outpatient R RUFINO MURRAY [facility] [id number] [facility] 2020-03-15 13:00:00 2020-03-15 13:00:00 Outpatient R [facility] [id number] [facility] 2020-03-12 13:00:00 2020-03-12 13:00:00 Outpatient AGUS READ [facility] [id number] [facility] 2020-02-13 16:15:00 2020-02-13 16:15:00 Outpatient RUFINO MONTALVO [facility] [id number] [facility] 2020-02-12 08:45:00 2020-02-12 08:45:00 Outpatient RUFINO MONTALVO [facility] [id number] [facility] 2020-02-06 14:30:00 2020-02-06 14:30:00 Outpatient RUFINO MONTALVO [facility] [id number] [facility]
[2024-03-09] MEDS ORDERED: KETOROLAC 30 MG/ML INJ ONE (17:03)
[2024-03-09] MEDS ORDERED: NA CHLORIDE 0.9% 1,000 ML ONE (17:03)
[2024-03-09] MEDS ORDERED: METOCLOPRAMIDE 10 MG/2mL INJ ONE (17:03)
[2024-03-09] MEDS ORDERED: DIPHENHYDRAMINE 50 MG/ML VIAL ONE (17:03)
--- NOTE | 2024-03-09 18:40 | EDPHYS ---
Physician Documentation [facility] Name: Suzanne Venegas Age: 33 yrs Sex: Female : 1990 Arrival Date: 03/09/2024 Time: 15:20 Bed 3 Private MD: ED Physician Raul Sun HPI: 03/09 16:37 This 33 yrs old Female presents to ER via Ambulatory with complaints of Flu sb4 Symptoms. 16:37 patient reports headache and neck pain that radiate down her arms, worse on the right. sb4 states this has been going on for 3 days. has taken tylenol without relief. started experiencing nausea, vomiting, and diarrhea today. denies any URI symptoms. Historical: - Allergies: 16:06 Red Dye; ap3 16:06 SHELLFISH; ap3 - PMHx: 16:06 Asthma; bells palsy; Irritable bowel syndrome; Ovarian cyst; sciatica; shingles; ap3 - PSHx: 16:06 Cholecystectomy; foot sx; ap3 - Immunization history:: Client reports having NOT received the Covid vaccine. Flu vaccine is not up to date. - Infectious Disease History:: Denies. - Social history:: Smoking status: Patient denies any tobacco usage or history of. ROS: 16:37 Constitutional: Negative for fever, chills, and weight loss, sb4 16:37 Neck: Positive for pain at rest, 16:37 Abdomen/GI: Positive for nausea, vomiting, and diarrhea, 16:37 Neuro: Positive for headache, 16:37 All other systems are negative, Exam: 16:37 Head/Face: Normocephalic, atraumatic. Eyes: Extra-ocular motions intact. Periorbital sb4 areas with no swelling, redness, or edema. ENT: Mucous membranes moist. Cardiovascular: Regular rate and rhythm with a normal S1 and S2. Respiratory: No increased work of breathing, no retractions or nasal flaring. Abdomen/GI: Soft, non-tender, no distension. Skin: Warm, dry with normal turgor. Normal color with no rashes, no lesions, and no evidence of cellulitis. 16:37 Constitutional: The patient appears alert, awake, obviously ill, Vital Signs: 16:04 BP 117 / 80; Pulse 73; Resp 17; Temp 98.8; Pulse Ox 100% ; Weight 81.65 kg; Height 5 ap3 ft. 0 in. ; Pain 6/10; 18:50 BP 121 / 74; Pulse 69; Resp 16; Pulse Ox 100% ; bp 16:04 Body Mass Index 35.15 (81.65 kg, 152.4 cm) ap3 16:04 Pain Scale: Adult ap3 MDM: 15:49 Medical Screening Exam initiated sb4 22:32 Data reviewed: vital signs, nurses notes, and as a result, I will discharge patient. sb4 Test considered but Not performed: Labs: cbc, bmp not indicated. CT: head CT not indicated, simple migraine. Counseling: I had a detailed discussion with the patient and/or guardian regarding the historical points, exam findings, and any diagnostic results supporting the discharge/admit diagnosis, the need for outpatient follow up, for definitive care, to return to the emergency department if symptoms worsen or persist or if there are any questions or concerns that arise at home. 03/09 16:13 Order name: IV Start; Complete Time: 17:13 sb4 Administered Medications: 17:13 Drug: Ketorolac IVP 15 mg IVP once Route: IVP; Site: right forearm; bp 18:51 Follow up: Response: No adverse reaction bp 17:13 Drug: metoCLOPramide IVP 10 mg IVP once; over 1 to 2 minutes Route: IVP; Site: right bp forearm; 18:51 Follow up: Response: No adverse reaction bp 17:13 Drug: diphenhydrAMINE IVP 25 mg IVP once Route: IVP; Site: right forearm; bp 18:51 Follow up: Response: No adverse reaction bp 17:13 Drug: NS 0.9% IV 1000 ml IV at 1000 ml once; to be given as a bolus over 60 minutes bp Route: IV; Rate: 1000 ml; Site: right forearm; 18:51 Follow up: IV Status: Completed infusion bp Disposition Summary: 03/09/24 18:40 Discharge Ordered Notes: Location: Home sb4 Problem: new sb4 Symptoms: have improved sb4 Condition: Stable sb4 Diagnosis - Tension-type headache sb4 Followup: sb4 - With: Private Physician - When: As needed - Reason: Recheck today's complaints, Re-evaluation by your physician Discharge Instructions: - Discharge Summary Sheet sb4 - General Headache Without Cause, [id number] sb4 Forms: - Work release form bp - Family Work Release bp - Patient Portal Instructions sb4 - Leadership Thank You Letter sb4 Addendum: 03/13/2024 07:44 I was immediately available for consultation during this patient's visit. I did not e c2 personally see the patient or discuss the patient with the STEFFANY. . Signatures: Benjie Colon RN RN bp Prokisch, Amanda, RN RN apRossi Weston, PARKER CANALES sb4 Raul Sun MD MD ec2
--- NOTE | 2024-03-09 18:40 | ER ---
Nurse's Notes [facility] Name: Suzanne Venegas Age: 33 yrs Sex: Female : 1990 Arrival Date: 03/09/2024 Time: 15:20 Bed 3 Private MD: Diagnosis: Tension-type headache Presentation: 03/09 16:04 Chief complaint: Patient states: she has been having shoulder, neck and head pain for ap3 three days. patient also reports nausea and diarrhea. Coronavirus screen: At this time, the client does not indicate any symptoms associated with coronavirus-19. Ebola Screen: No symptoms or risks identified at this time. Initial Sepsis Screen: Does the patient meet any 2 criteria? No. Patient's initial sepsis screen is negative. Does the patient have a suspected source of infection? No. Patient's initial sepsis screen is negative. Risk Assessment: Do you want to hurt yourself or someone else? Patient reports no desire to harm self or others. Onset of symptoms was March 06, 2024. 16:04 Method Of Arrival: Ambulatory ap3 16:04 Acuity: AMANDA 3 ap3 Triage Assessment: 16:06 General: Appears uncomfortable, Behavior is calm, cooperative, appropriate for age. ap3 Pain: Complains of pain in head, right arm, left arm and neck. Neuro: Level of Consciousness is awake, alert, obeys commands, Oriented to person, place, time, situation, Appropriate for age. Cardiovascular: Patient's skin is warm and dry. Respiratory: Airway is patent Respiratory effort is even, unlabored, Respiratory pattern is regular, symmetrical. Historical: - Allergies: 16:06 Red Dye; ap3 16:06 SHELLFISH; ap3 - PMHx: 16:06 Asthma; bells palsy; Irritable bowel syndrome; Ovarian cyst; sciatica; shingles; ap3 - PSHx: 16:06 Cholecystectomy; foot sx; ap3 - Immunization history:: Client reports having NOT received the Covid vaccine. Flu vaccine is not up to date. - Infectious Disease History:: Denies. - Social history:: Smoking status: Patient denies any tobacco usage or history of. Screenin:[address] [facility] ED Fall Risk Assessment (Adult) History of falling in the last 3 months, ap3 including since admission No falls in past 3 months (0 pts) Confusion or Disorientation No (0 pts) Intoxicated or Sedated No (0 pts) Impaired Gait No (0 pts) Mobility Assist Device Used No (0 pt) Altered Elimination No (0 pt) Score/Fall Risk Level 0 - 2 = Low Risk Oriented to surroundings, Maintained a safe environment, Educated pt \T\ family on fall prevention, incl call for assistance when getting out of bed, Assessed \T\ reinforced patient's understanding of fall precautions, Hourly rounding (assess needs \T\ fall precautionary measures) done, Used ambulatory aids as needed (educated on \T\ assisted with), Used gait belt as appropriate. Abuse screen: Denies threats or abuse. Nutritional screening: No deficits noted. Tuberculosis screening: No symptoms or risk factors identified. Assessment: 16:15 General: Appears in no apparent distress. uncomfortable, obese, Behavior is calm, bp cooperative, appropriate for age. 18:50 Reassessment: Patient states symptoms have improved. bp Vital Signs: 16:04 BP 117 / 80; Pulse 73; Resp 17; Temp 98.8; Pulse Ox 100% ; Weight 81.65 kg; Height 5 ap3 ft. 0 in. ; Pain 6/10; 18:50 BP 121 / 74; Pulse 69; Resp 16; Pulse Ox 100% ; bp 16:04 Body Mass Index 35.15 (81.65 kg, 152.4 cm) ap3 16:04 Pain Scale: Adult ap3 ED Course: 15:23 Patient arrived in ED. im 15:24 Rossi Berger PA-C is [facility]. sb4 15:24 Raul Sun MD is Attending Physician. sb4 16:06 Triage completed. ap3 16:07 Arm band placed on right wrist. ap3 16:59 Benjie Colon, ELIZA is Primary Nurse. bp 17:13 Inserted saline lock: 20 gauge in right forearm, using aseptic technique. Blood bp collected. Flushed with 10 mL NS. 18:50 Patient has correct armband on for positive identification. bp 18:50 No provider procedures requiring assistance completed. IV discontinued, intact, bp bleeding controlled, No redness/swelling at site. Pressure dressing applied. Administered Medications: 17:13 Drug: Ketorolac IVP 15 mg IVP once Route: IVP; Site: right forearm; bp 18:51 Follow up: Response: No adverse reaction bp 17:13 Drug: metoCLOPramide IVP 10 mg IVP once; over 1 to 2 minutes Route: IVP; Site: right bp forearm; 18:51 Follow up: Response: No adverse reaction bp 17:13 Drug: diphenhydrAMINE IVP 25 mg IVP once Route: IVP; Site: right forearm; bp 18:51 Follow up: Response: No adverse reaction bp 17:13 Drug: NS 0.9% IV 1000 ml IV at 1000 ml once; to be given as a bolus over 60 minutes bp Route: IV; Rate: 1000 ml; Site: right forearm; 18:51 Follow up: IV Status: Completed infusion bp Medication: 18:50 VIS not applicable for this client. bp Outcome: 18:40 Discharge ordered by . sb4 18:50 Discharged to home ambulatory, with family, bp 18:50 Condition: stable 18:50 Discharge instructions given to patient, Instructed on discharge instructions, follow up and referral plans. Demonstrated understanding of instructions, follow-up care, 18:52 Patient left the ED. bp Signatures: Benjie Colon RN RN bp Sushma Yanes RN RN ap3 Rossi Berger, PA-C PA-C sb4 Bethany Kaminski
[2024-03-09 23:50] VITALS: TEMP 98.8; O2SAT 100
[2024-03-09 23:52] VITALS: BP 121/74
== END 2024-03-09 18:52 | disposition home or self-care (01) ==
LOC: ER 15:20
DX: G44.209 Tension-type headache, unspecified, not intractable (principal); J45.909 Unspecified asthma, uncomplicated; Z91.02 Food additives allergy status; Z91.013 Allergy to seafood
CPT/HCPCS: 96361; 96374; 96375; 99284; J1200; J2765; J7030

== ENCOUNTER 2024-04-22 01:23 | Emergency (ER) | payer OTHER, SELFPAY ==
[2024-04-22] MEDS ORDERED: NA CHLORIDE 0.9% 1,000 ML ONE (02:18)
[2024-04-22] MEDS ORDERED: FAMOTIDINE 20 MG/2 ML VIAL IV ONE (02:18)
[2024-04-22] MEDS ORDERED: ONDANSETRON 4 MG/2 ML VIAL ONE (02:18)
[2024-04-22 02:32] LABS: Specific Gravity 1.028 (1.005-1.030); Sqamous Epithelial <5 /HPF (None Seen); Urine Bacteria None Seen /HPF (<20); Urine Bilirubin NEGATIVE (Negative); Urine Blood Negative (Negative); Urine Clarity Clear (Clear); Urine Color Light-Yellow (Yellow); Urine Culture Reflex Order NOT NEEDED; Urine Glucose NEGATIVE (Negative); Urine Ketones NEGATIVE (Negative); Urine Microscopic Reflex YN ORDER UMIC; Urine Mucus Slight /HPF (None Seen); Urine Nitrite NEGATIVE (Negative); Urine Protein NEGATIVE (Negative); Urine RBC <5 /HPF (None Seen); Urine Urobilinogen 1+ (Normal); Urine WBC <5 /HPF (<5); Urine pH 6.5 (5.0-7.0)
[2024-04-22] MEDS ORDERED: DICYCLOMINE HCL 20 MG/2 ML AMP IM ONE (02:33)
[2024-04-22] MEDS ORDERED: MORPHINE 4 MG/ML SYR ONE (02:34)
[2024-04-22] MEDS ORDERED: METOCLOPRAMIDE 10 MG/2mL INJ ONE (02:34)
[2024-04-22 02:37] LABS: Absolute Eosinophils 0.2 K/uL (0-0.5); Absolute Lymphocytes (CBC) 2.9 K/uL (0.7-4.9); Absolute Monocytes 0.6 K/uL (0.1-1.3); Absolute Neutrophil 6.5 K/uL (1.8-8.0); Basophils % 0.5 % (0-1.3); Eosinophils % 1.8 % (0-4.4); Hematocrit 40.3 % (36.0-45.0); Hemoglobin 14.2 g/dL (12.0-15.0); Lymphocytes % 28.1 % (15.3-44.8); MCH 28.4 pg (27.0-35.0); MCHC 35.1 g/dL (32.0-36.0); MCV 80.9 fL (80-100); MPV 8.9 fL (7.6-11.3); Neutrophils % 63.6 % (41.7-73.7); Nucleated Red Blood Cells % 0.1 % (0-0); Platelets 316 thou/uL (152-406); RBC Red Blood Cell Count 4.98 M/uL (3.86-4.86); Red Cell Distribution Width 13.5 % (12.1-15.2)
[2024-04-22 02:55] LABS: ALT/SGPT 35 U/L (13-56); AST/SGOT 14 U/L (15-37); Albumin 3.6 g/dL (3.4-5.0); Albumin/Globulin Ratio 0.8 (1.1-1.8); Alkaline Phosphatase 104 U/L (45-117); Anion Gap 5.9 mEq/L (5.0-15.0); BUN Blood Urea Nitrogen 11 mg/dL (7-18); Bicarbonate 30 mEq/L (21-32); Bilirubin Total 0.5 mg/dL (0.2-1.0); Globulin 4.6 g/dL (2.3-3.5); Glomerular Filtration Rate 98 ml/min (=/>90); Glucose Level 93 mg/dL (74-106); Lipase ND U/L (13-75); Potassium 2.9 mEq/L (3.5-5.1); Protein, Total 8.2 g/dL (6.4-8.2); Sodium Level 137 mEq/L (136-145)
--- NOTE | 2024-04-22 04:36 | RAD REPORT ---
EXAM DESCRIPTION: Abdomen Pelvis W Contrast RadLex: CT ABDOMEN PELVIS WITH IV CONTRAST CLINICAL HISTORY: 33 years Female; ABD PAIN; IV ONLY Bed Name: 8 TECHNIQUE: CT of the abdomen and pelvis [with] intravenous contrast. All CT scans at this facility use dose modulation, iterative reconstruction, and/or weight based dosi ng when appropriate to reduce radiation dose to as low as reasonably achievable. COMPARISON: None. FINDINGS: Lower thorax: Lung bases are clear Abdomen: Stomach: Within normal limits Liver: No focal lesions. No intrahepatic ductal distention. Gallbladder: Surgically absent. Pancreas: Within normal limits Spleen: Within normal limits Right kidney: No hydronephrosis. No focal lesion. Left kidney: No hydronephrosis. No focal lesion. Adrenal glands: Within normal limits Vascular structures: Within normal limits Nodes: No lymphadenopathy by size criteria Pelvis: Small bowel: No significant distention. Appendix: Within normal limits Colon: No distention or acute pericolonic edema. Peritoneum: No free intraperitoneal fluid or air. Bones: No acute bone findings. Bladder: Unremarkable. Reproductive organs: No acute findings. IMPRESSION: No acute abdominopelvic findings. Electronically signed by: Evgeny Sadler MD 04/22/2024 04:33 AM [facility] [id number] Due to temporary technical issues with the [employer] reporting system, reports are being bibi d by the in-house radiologist without review as a courtesy to ensure prompt reporting the interpreting radiologist is fully responsible for the content of the report. Transcribed Date/Time: 04/22/2024 4:36 AM
--- NOTE | 2024-04-22 06:02 | EDPHYS ---
Physician Documentation [facility] Name: Suzanne Venegas Age: 33 yrs Sex: Female : 1990 Arrival Date: 04/22/2024 Time: 01:23 Bed 8 Private MD: ED Physician Melvin Anaya HPI: 04/22 01:55 This 33 yrs old Female presents to ER via Unassigned with complaints of Low sp4 Back Pain, Abdominal Pain. 05:52 33-year-old female with history of irritable bowel syndrome, asthma, ovarian cyst, sp4 sciatic shingles, presents with acute right upper quadrant abdominal pain also right abdominal pain associated with nausea starting 1 week ago. History of cholecystectomy and bilateral tubal ligation.. 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 - Infectious Disease History:: Denies. - Social history:: Smoking status: Patient denies any tobacco usage or history of. - Family history:: not pertinent. ROS: 05:52 Constitutional: Negative for fever, chills, and weight loss, positive for right sp4 abdominal pain and nausea 05:52 All other systems are negative, Exam: 05:52 Constitutional: This is a well developed, well nourished patient who is awake, alert, sp4 and in no acute distress. Head/Face: Normocephalic, atraumatic. Eyes: Pupils equal round and reactive to light, extra-ocular motions intact. Lids and lashes normal. Conjunctiva and sclera are not injected. Cornea within normal limits. Periorbital areas with no swelling, redness, or edema. ENT: Nares patent. No nasal discharge, no septal abnormalities noted. Tympanic membranes are normal and external auditory canals are clear. Oropharynx with no redness, swelling, or masses, exudates, or evidence of obstruction, uvula midline. Mucous membranes moist. Neck: Trachea midline, no thyromegaly or masses palpated, and no cervical lymphadenopathy. Supple, full range of motion without nuchal rigidity, or vertebral point tenderness. Chest/axilla: Normal chest wall appearance and motion. Nontender with no deformity. No lesions are appreciated. Cardiovascular: Regular rate and rhythm with a normal S1 and S2. No gallops, murmurs, or rubs. Normal PMI, no JVD. No pulse deficits. Respiratory: Lungs have equal breath sounds bilaterally, clear to auscultation and percussion. No rales, rhonchi or wheezes noted. No increased work of breathing, no retractions or nasal flaring. Abdomen/GI: Soft, with normal bowel sounds. No distension or tympany. No guarding or rebound. No evidence of tenderness throughout. Back: No spinal tenderness. No costovertebral tenderness. Skin: Warm, dry with normal turgor. Normal color with no rashes, no lesions, and no evidence of cellulitis. MS/ Extremity: Pulses equal, no cyanosis. Neurovascular intact. Full, normal range of motion. Neuro: Awake and alert, GCS 15, oriented to person, place, time, and situation. Cranial nerves II-XII grossly intact. Motor strength 5/5 in all extremities. Sensory grossly intact. Psych: Awake, alert, with orientation to person, place and time. Behavior, mood, and affect are within normal limits Vital Signs: 02:10 BP 132 / 89; Pulse 112; Resp 18; Temp 97.7; Pulse Ox 100% on R/A; Weight 81.65 kg; al5 Height 5 ft. 0 in. ; Pain 10/10; 02:30 BP 137 / 89; Pulse 82; Resp 18; Pulse Ox 100% on R/A; al5 03:00 BP 101 / 65; Pulse 63; Resp 17; Pulse Ox 99% on R/A; al5 04:30 BP 103 / 68; Pulse 67; Resp 15; Pulse Ox 99% on R/A; al5 05:00 BP 94 / 65; Pulse 65; Resp 16; Pulse Ox 99% on R/A; al5 06:00 BP 95 / 68; Pulse 62; Resp 15; Pulse Ox 98% on R/A; al5 02:10 Body Mass Index 35.15 (81.65 kg, 152.4 cm) al5 02:10 Pain Scale: Adult al5 Alonso Coma Score: 05:52 Eye Response: spontaneous(4). Motor Response: obeys commands(6). Verbal Response: sp4 oriented(5). Total: 15. MDM: 02:08 Medical Screening Exam initiated sp4 05:51 ED course: EXAM DESCRIPTION: Abdomen Pelvis W Contrast RadLex: CTABDOMEN PELVIS WITH IV sp4 CONTRAST CLINICAL HISTORY: 33 years Female; ABD PAIN; IV ONLYBed Name: 8 TECHNIQUE: CT of the abdomen and pelvis [with] intravenous contrast. All CT scans at this facility use dose modulation, iterative reconstruction, and/or weight based dosing when appropriate to reduce radiation dose to as low as reasonably achievable. COMPARISON: None. FINDINGS: Lower thorax: Lung bases are clear Abdomen: Stomach:Within normal limits Liver:No focal lesions. No intrahepatic ductal distention. Gallbladder:Surgically absent. Pancreas:Within normal limits Spleen:Within normal limits Right kidney:No hydronephrosis. No focal lesion. Left kidney:No hydronephrosis. No focal lesion. Adrenal glands:Within normal limits Vascular structures:Within normal limits Nodes:No lymphadenopathy by size criteria Pelvis: Small bowel:No significant distention. Appendix:Within normal limits Colon:No distention or acute pericolonic edema. Peritoneum: No free intraperitoneal fluid or air. Bones: No acute bone findings. Bladder: Unremarkable. Reproductive organs: No acute findings. IMPRESSION: No acute abdominopelvic findings.. 05:55 ED course: IMPRESSION: No acute abnormality . sp4 06:37 Differential diagnosis: sciatica, contusion, Herniated disc UTI. Data reviewed: vital sp4 signs, nurses notes, lab test result(s), radiologic studies, CT scan. Consideration of Admission/Observation Escalation of care including admission/observation considered. ED course: Stable for discharge home.. 04/22 02:07 Order name: CBC with Diff; Complete Time: 05:45 sp4 04/22 02:07 Order name: CMP; Complete Time: 05:45 sp4 04/22 02:07 Order name: Lipase; Complete Time: 05:45 sp4 04/22 02:07 Order name: Test, Urine; Complete Time: 05:45 sp4 04/22 02:07 Order name: Urinalysis w/ reflexes; Complete Time: 05:45 sp4 04/22 02:07 Order name: CT Abd/Pelvis - IV Contrast Only sp4 04/22 02:07 Order name: IV Saline Lock; Complete Time: 02:10 sp4 04/22 02:07 Order name: Labs collected and sent; Complete Time: 02:15 sp4 04/22 02:20 Order name: NPO; Complete Time: 02:29 sp4 Administered Medications: 02:29 Drug: Famotidine IVP 20 mg IVP once; dilute with 10 mL 0.9% NaCl; give over 2 minutes al5 Route: IVP; Site: right antecubital; 04:34 Follow up: Response: No adverse reaction; Pain is decreased al5 02:29 Drug: Ondansetron IVP 4 mg IVP once; over 2 minutes Route: IVP; Site: right antecubital;al5 04:35 Follow up: Response: No adverse reaction; Nausea is decreased al5 02:29 Drug: NS 0.9% IV 1000 ml IV at 1000 ml once; to be given as a bolus over 60 minutes al5 Route: IV; Rate: 1000 ml; Site: right antecubital; 04:34 Follow up: Response: No adverse reaction; IV Status: Completed infusion; IV Intake: al5 1000ml 02:52 Drug: morphine IVP or IV 8 mg IVP once over 4 mins {Note: did not want the full dose, al5 states she hates the way it makes her feel. agreed to do half of dose ordered and will reassess later on pain status. notified provider.} Route: IVP; Infused Over: 4 mins; Site: right antecubital; 04:34 Follow up: Response: No adverse reaction; Pain is decreased al5 02:52 Drug: metoCLOPramide IVP 10 mg IVP once; over 1 to 2 minutes Route: IVP; Site: right al5 antecubital; 04:34 Follow up: Response: No adverse reaction; Nausea is decreased al5 02:52 Drug: Dicyclomine IM 20 mg IM once Route: IM; Site: right gluteus; al5 04:34 Follow up: Response: No adverse reaction; Pain is decreased al5 Disposition Summary: 04/22/24 06:02 Discharge Ordered Notes: Location: Home sp4 Problem: new sp4 Symptoms: have improved sp4 Condition: Stable sp4 Diagnosis - Acute abdominal pain , Irritable Bowel Syndrome sp4 Followup: sp4 - With: Private Physician - When: 7 - 10 days - Reason: Recheck today's complaints Discharge Instructions: - Discharge Summary Sheet sp4 - Irritable Bowel Syndrome, Adult sp4 Forms: - Patient Portal Instructions sp4 Prescriptions: - naproxen sodium 500 mg Oral Tablet, ER Multiphase 24 hr - take 1 tablet ORAL route every 12 hours PRN pain; 50 tablet; Refills: 0, sp4 Product Selection Permitted - Reglan 10 mg Oral tablet - take 1 tablet ORAL route every 6 hours PRN nausea; 30 tablet; Refills: 0, sp4 Product Selection Permitted - dicyclomine 20 mg Oral tablet - take 1 tablet ORAL route 3 times per day PRN abdominal pain; 30 tablet; sp4 Refills: 0, Product Selection Permitted Signatures: Dispatcher [employer] EDMS Melvin Anaya MD MD sp4 Sushma Mack RN RN al5 Corrections: (The following items were deleted from the chart) 02:09 02:09 Abdomen Pelvis W Con+CT.RAD.BRZ ordered. EDMS EDMS 02:12 02:11 PSHx: tubal ligation (foot sx); al5 al5 02:12 02:11 PSHx: "tubes tied"; al5 al5 06:37 05:55 ED course: IMPRESSION: 1. No acute intrathoracic abnormality. 2. Stable biliary sp4 stents with mild distention of the left hepatic ducts. Previously described lesion in the region of the hepatic hilum is not well visualized. 3. Small abdominal and large pelvic ascites. 4. Constipation. 5. Nonobstructing left renal calculus. 6. Stable borderline enlarged right inguinal lymph node. RECOMMENDATIONS:. sp4
--- NOTE | 2024-04-22 06:02 | ER ---
Nurse's Notes [facility] Name: Suzanne Venegas Age: 33 yrs Sex: Female : 1990 Arrival Date: 04/22/2024 Time: 01:23 Bed 8 Private MD: Diagnosis: Acute abdominal pain , Irritable Bowel Syndrome Presentation: 04/22 02:10 Chief complaint: Patient states: c/o RUQ abdominal pain that radiates to the R side al5 back along with N/V x1 week. Coronavirus screen: At this time, the client does not indicate any symptoms associated with coronavirus-19. Ebola Screen: No symptoms or risks identified at this time. Initial Sepsis Screen: Does the patient meet any 2 criteria? HR > 90 bpm. No. Patient's initial sepsis screen is negative. Does the patient have a suspected source of infection? No. Patient's initial sepsis screen is negative. Risk Assessment: Do you want to hurt yourself or someone else? Patient reports no desire to harm self or others. Onset of symptoms was April 14, 2024. 02:10 Method Of Arrival: Ambulatory al5 02:10 Acuity: AMANDA 3 al5 Triage Assessment: 02:12 General: Appears in no apparent distress. uncomfortable, Behavior is calm, cooperative. al5 Pain: Complains of pain in right upper quadrant Pain radiates to right mid back Pain currently is 10 out of 10 on a pain scale. EENT: No signs and/or symptoms were reported regarding the EENT system. Neuro: Level of Consciousness is awake, alert, obeys commands, Oriented to person, place, time, situation. Cardiovascular: Capillary refill < 3 seconds Patient's skin is warm and dry. Respiratory: Airway is patent Respiratory effort is even, unlabored, Respiratory pattern is regular, symmetrical. GI: Abdomen is non-distended, Reports upper abdominal pain, nausea, vomiting. : No signs and/or symptoms were reported regarding the genitourinary system. Derm: No signs and/or symptoms reported regarding the dermatologic system. Skin is intact, is healthy with good turgor, Skin is pink, warm \\T\\ dry. normal. Musculoskeletal: No signs and/or symptoms reported regarding the musculoskeletal system. 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 - Infectious Disease History:: Denies. - Social history:: Smoking status: Patient denies any tobacco usage or history of. - Family history:: not pertinent. Screenin:14 [facility] ED Fall Risk Assessment (Adult) History of falling in the last 3 months, al5 including since admission No falls in past 3 months (0 pts) Confusion or Disorientation No (0 pts) Intoxicated or Sedated No (0 pts) Impaired Gait No (0 pts) Mobility Assist Device Used No (0 pt) Altered Elimination No (0 pt) Score/Fall Risk Level 0 - 2 = Low Risk Oriented to surroundings, Maintained a safe environment, Hourly rounding (assess needs \\T\\ fall precautionary measures) done. Abuse screen: Denies threats or abuse. Denies injuries from another. Nutritional screening: No deficits noted. Tuberculosis screening: No symptoms or risk factors identified. Assessment: 02:13 Reassessment: see triage assessment. GI: Bowel sounds present X 4 quads. Abd is soft X al5 4 quads Abdomen is tender to palpation in right upper quadrant. 03:22 Reassessment: Patient appears in no apparent distress at this time. No changes from al5 previously documented assessment. Patient and/or family updated on plan of care and expected duration. Pain level reassessed. Patient is alert, oriented x 3, equal unlabored respirations, skin warm/dry/pink. 04:35 Reassessment: Patient appears in no apparent distress at this time. No changes from al5 previously documented assessment. Patient and/or family updated on plan of care and expected duration. Pain level reassessed. Patient is alert, oriented x 3, equal unlabored respirations, skin warm/dry/pink. Patient states feeling better. Patient states symptoms have improved. 06:22 Reassessment: Patient appears in no apparent distress at this time. No changes from al5 previously documented assessment. Patient and/or family updated on plan of care and expected duration. Pain level reassessed. Patient is alert, oriented x 3, equal unlabored respirations, skin warm/dry/pink. Vital Signs: 02:10 BP 132 / 89; Pulse 112; Resp 18; Temp 97.7; Pulse Ox 100% on R/A; Weight 81.65 kg; al5 Height 5 ft. 0 in. ; Pain 10/10; 02:30 BP 137 / 89; Pulse 82; Resp 18; Pulse Ox 100% on R/A; al5 03:00 BP 101 / 65; Pulse 63; Resp 17; Pulse Ox 99% on R/A; al5 04:30 BP 103 / 68; Pulse 67; Resp 15; Pulse Ox 99% on R/A; al5 05:00 BP 94 / 65; Pulse 65; Resp 16; Pulse Ox 99% on R/A; al5 06:00 BP 95 / 68; Pulse 62; Resp 15; Pulse Ox 98% on R/A; al5 02:10 Body Mass Index 35.15 (81.65 kg, 152.4 cm) al5 02:10 Pain Scale: Adult al5 Alonso Coma Score: 05:52 Eye Response: spontaneous(4). Motor Response: obeys commands(6). Verbal Response: sp4 oriented(5). Total: 15. ED Course: 01:36 Patient arrived in ED. gm2 01:55 Melvin Anaya MD is Attending Physician. sp4 02:10 Sushma Mack, ELIZA is Primary Nurse. al5 02:11 Triage completed. al5 02:13 Arm band placed on right wrist. Patient placed in the treatment room, in view of staff al5 members, on pulse oximetry. 02:14 Patient has correct armband on for positive identification. Placed in gown. Bed in low al5 position. Call light in reach. Side rails up X2. Provided Education on: plan of care. 02:14 No provider procedures requiring assistance completed. Inserted saline lock: 20 gauge al5 in right antecubital area, using aseptic technique. Blood collected. Flushed with 10 mL NS. 02:17 CBC with Diff Sent. cg4 02:17 CMP Sent. cg4 02:17 Lipase Sent. cg4 02:17 Test, Urine Sent. cg4 02:17 Urinalysis w/ reflexes Sent. cg4 03:21 CT Abd/Pelvis - IV Contrast Only In Process Unspecified. EDMS 06:22 IV discontinued, intact, bleeding controlled, No redness/swelling at site. Pressure al5 dressing applied. Administered Medications: 02:29 Drug: Famotidine IVP 20 mg IVP once; dilute with 10 mL 0.9% NaCl; give over 2 minutes al5 Route: IVP; Site: right antecubital; 04:34 Follow up: Response: No adverse reaction; Pain is decreased al5 02:29 Drug: Ondansetron IVP 4 mg IVP once; over 2 minutes Route: IVP; Site: right antecubital;al5 04:35 Follow up: Response: No adverse reaction; Nausea is decreased al5 02:29 Drug: NS 0.9% IV 1000 ml IV at 1000 ml once; to be given as a bolus over 60 minutes al5 Route: IV; Rate: 1000 ml; Site: right antecubital; 04:34 Follow up: Response: No adverse reaction; IV Status: Completed infusion; IV Intake: al5 1000ml 02:52 Drug: morphine IVP or IV 8 mg IVP once over 4 mins {Note: did not want the full dose, al5 states she hates the way it makes her feel. agreed to do half of dose ordered and will reassess later on pain status. notified provider.} Route: IVP; Infused Over: 4 mins; Site: right antecubital; 04:34 Follow up: Response: No adverse reaction; Pain is decreased al5 02:52 Drug: metoCLOPramide IVP 10 mg IVP once; over 1 to 2 minutes Route: IVP; Site: right al5 antecubital; 04:34 Follow up: Response: No adverse reaction; Nausea is decreased al5 02:52 Drug: Dicyclomine IM 20 mg IM once Route: IM; Site: right gluteus; al5 04:34 Follow up: Response: No adverse reaction; Pain is decreased al5 Medication: 02:14 VIS not applicable for this client. al5 Intake: 04:34 IV: 1000ml; Total: 1000ml. al5 Outcome: 06:02 Discharge ordered by MD. [email or web address] 06:22 Discharged to home ambulatory, with significant other, al5 06:22 Condition: good 06:22 Discharge instructions given to patient, significant other, Instructed on discharge instructions, follow up and referral plans. medication usage, Demonstrated understanding of instructions, follow-up care, medications, Prescriptions given X 3, 06:22 Patient left the ED. al5 Signatures: Dispatcher [employer] Melvin Lizama MD MD sp4 Sofya Brunson gm2 Sushma Mack RN RN al5 Coleen Damian cg4 Corrections: (The following items were deleted from the chart) 02:12 02:11 PSHx: tubal ligation (foot sx); al5 al5 02:12 02:11 PSHx: "tubes tied"; al5 al5 06:22 04:35 Reassessment: Patient appears in no apparent distress at this time. No changes al5 from previously documented assessment. Patient and/or family updated on plan of care and expected duration. Pain level reassessed. Patient is alert, oriented x 3, equal unlabored respirations, skin warm/dry/pink. al5
[2024-04-22 06:41] VITALS: BP 95/68; O2SAT 98
== END 2024-04-22 06:22 | disposition home or self-care (01) ==
LOC: ER 01:23
DX: K58.9 Irritable bowel syndrome, unspecified (principal)
CPT/HCPCS: 96361; 85025; 81001; 36415; 81025; 80053; 74177; 96375; 96372; 96374; 99284; Q9967; J2765; J0500; J2405; J7030

== ENCOUNTER 2024-07-20 02:04 | Emergency (ER) | payer OTHER ==
--- OUTSIDE RECORDS SUMMARY | 2024-07-20 02:07 | XMS REPORT | Continuity of Care Document ---
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 Role Phone Lucia Augustin Primary Care Physician Un available RONY MURRAYEN YURIDIA Attending Clinician Unavailable Doctor Unassigned, [place] Attending Clinician U navailable [email or web address] Attending Clinician Unavaila ble Doctor Unassigned, [place] Attending Clinician U navailable AGUS COLVIN Attending Clinician Unavailable MURRAY, RUFINO CAM Admitting Clinician Unavailable [email or web address] Admitting Clinician Unavaila ble Payers Payer Name Policy Type Policy Number Effective Date Expirati on Date Source [facility] [id number] 2020 00:00:00 Problems Condition Name Condition Details Condition Category Status Onset Date Resolution Date Last Treatment Date Treating Clinician Comments Source Rash and other nonspecifi c skin eruption Rash and other nonspecifi c skin eruption Disease Active 09-18 00:00: 00 [facility] 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 Disease Active 07-11 00:00: 00 [facility] Current moderate episode of major depressive disorder without prior episode Current moderate episode of major depressive disorder without prior episode Disease Active 08-18 00:00: 00 [facility] Obesity (BMI 30-39.9) Obesity (BMI 30-39.9) Disease Active 2016-03 00:00: 00 [facility] S/P tubal ligation S/P tubal ligation Disease Resolve d 2020-0 6-29 00:00: 00 2020-09-18 00:00:00 2020-09-18 13:59:04 [facility] Acute midline low back pain with bilateral sciatica Acute midline low back pain with bilateral sciatica Disease Resolve d 2020-0 3-08 00:00: 00 2020-09-18 00:00:00 2020-09-18 13:59:06 [facility] Mild intermitte nt asthma without complicati on Mild intermitte nt asthma without complicati on Disease Resolve d 2020-0 2-03 00:00: 00 2020-09-18 00:00:00 2020-09-18 13:59:08 [facility] Admission for tubal ligation Admission for tubal ligation Disease Resolve d 2020-0 2-03 00:00: 00 2020-09-18 00:00:00 2020-09-18 13:59:02 [facility] 39 weeks gestation of 39 weeks gestation of Disease Resolve d 2020-0 5-12 00:00: 00 2020-08-14 00:00:00 2020-08-14 13:07:23 [facility] Encounter for planned induction of labor Encounter for planned induction of labor Disease Resolve d 2020-0 5-12 00:00: 00 2020-08-14 00:00:00 2020-08-14 13:07:23 [facility] History of anxiety History of anxiety Disease Resolve d 2020-0 5-12 00:00: 00 2020-08-14 00:00:00 2020-08-14 13:07:23 [facility] Liveborn infant, of chang , born in hospital by vaginal delivery Liveborn , of chang , born in hospital by vaginal delivery Disease Resolve d 2020-0 5-12 00:00: 00 2020-08-14 00:00:00 2020-08-14 13:07:23 [facility] High-risk in third trimester High-risk in third trimester Disease Resolve d 2020-0 2-03 00:00: 00 2020-08-14 00:00:00 2020-08-14 13:07:23 [facility] PUPP (pruritic urticarial papules and plaques of ) PUPP (pruritic urticarial papules and plaques of ) Disease Resolve d 0 3-15 00:00: 00 2020-08-14 00:00:00 2020-08-14 13:39:54 [facility] Fall (on) (from) other stairs and steps, initial encounter Fall (on) (from) other stairs and steps, initial encounter Disease Resolve d 0 3-29 00:00: 00 2020-07-17 00:00:00 2020-07-17 07:38:53 [facility] Round ligament pain Round ligament pain Disease Resolve d 2-03 00:00: 00 2020-07-17 00:00:00 2020-07-17 07:39:07 [facility] uterine contractio ns in third trimester, antepartum uterine contractio ns in third trimester, antepartum Disease Resolve d 0 4-26 00:00: 00 2020-07-08 00:00:00 2020-07-08 14:54:07 [facility] 32 weeks gestation of 32 weeks gestation of Disease Resolve d 2020-0 3-29 00:00: 00 2020-06-20 00:00:00 2020-06-20 10:37:20 [facility] Postmaturi ty , 40-42 weeks gestation Postmaturi ty , 40-42 weeks gestation Disease Resolve d 0 6-13 00:00: 00 2020-02-13 00:00:00 2020-02-13 14:28:39 [facility] 40 weeks gestation of 40 weeks gestation of Disease Resolve d 2016-03 1-07 00:00: 00 2020-02-13 00:00:00 2020-02-13 14:28:32 [facility] Fever in adult Fever in adult Disease Resolve d 2017-0 4-26 00:00: 00 2017-08-18 00:00:00 2017-08-18 12:31:51 [facility] Maternal care for tachycardi a during Maternal care for tachycardi a during Disease Resolve d 2017-0 07-01 00:00: 00 2017-08-18 00:00:00 2017-08-18 12:31:55 [facility] Pyelonephr itis affecting in third trimester Pyelonephr itis affecting in third trimester Disease Resolve d 2017-0 07-01 00:00: 00 2017-08-18 00:00:00 2017-08-18 12:32:06 [facility] Gestationa l dyspnea in second trimester Gestationa l dyspnea in second trimester Disease Resolve d 0 -15 00:00: 00 2017-08-18 00:00:00 2017-08-18 12:31:40 [facility] Vasovagal episode Vasovagal episode Disease Resolve d 0 3 00:00: 00 2017-08-18 00:00:00 2017-08-18 12:31:44 [facility] Abdominal pain in , first trimester Abdominal pain in , first trimester Disease Resolve d 2016-03 00:00: 00 2017-08-18 00:00:00 2017-08-18 12:31:31 [facility] History of laparoscop ic cholecyste ctomy History of laparoscop ic cholecyste ctomy Disease Resolve d 2016-03 00:00: 00 2017-08-18 00:00:00 2017-08-18 12:31:38 [facility] Nexplanon in place Nexplanon in place Disease Resolve d 2013-03 00:00: 00 2017-01-13 00:00:00 2017-01-13 09:42:41 [facility] Allergies, Adverse Reactions, Alerts Allergy Name Allergy Type Status Severity Reaction(s) Onset Date Inactive Date Treating Clinician Comments Source IBUPROFE N DRUG INGREDI Active Rash 2013-03 00:00: 00 [facility] NAPROXEN DRUG INGREDI Active Other-Cmnt 2013-03 00:00: 00 [facility] RED DYE DRUG INGREDI Active Other-Cmnt 2013-03 00:00: 00 [facility] Red Dye Propensi ty to adverse reaction s Active Other - See comments 2013-03 00:00: 00 Red dye #40 : pt states gives her extreme "bad" headaches . [facility] Social History Social Habit Start Date Stop Date Quantity Comments Source History of tobacco use Cigarette Smoker [facility] Sexual orientation U [facility] ASSERTION [facility] Exposure to SARS-CoV-2 (event) 2020-08-19 00:00:00 2020-09-18 13:01:00 Not sure [facility] History of Social function 2020-09-03 00:00:00 2020-09-03 00:00:00 [facility] Alcohol intake 2020-08-14 00:00:00 2020-08-14 00:00:00 Current non-drinker of alcohol (finding) [facility] Alcoholic beverage intake 2017-01-12 00:00:00 2017-01-12 00:00:00 Current non-drinker of alcohol (finding) [facility] Tobacco use and exposure 2017-01-04 00:00:00 2017-01-04 00:00:00 Smokeless tobacco non-user [facility] Sex assigned at 1990 00:00:00 1990 00:00:00 [facility] Smoking Status Start Date Stop Date Source Ex-smoker 2017-01-04 00:00:00 2017-01-04 00:00:00 [facility] Medications Ordered Medication Name Filled Medication Name Start Date Stop Date Current Medication? Ordering Clinician Indication Dosage Frequency Signature (SIG) Comments Components Source FLUoxetine 20 mg capsule 09-18 00:00: 00 Yes [id number] 20mg Take 1 capsule by mouth daily. [facility] hydrOXYzine 25 mg tablet 09-12 00:00: 00 Yes [id number] 25mg Take 1 tablet by mouth every 6 (six) hours. [facility] triamcinolo ne acetonide 0.1 % ointment 08-28 00:00: 00 Yes [id number] Apply to area(s) 2 (two) times daily. [facility] Immunizations Ordered Immunization Name Filled Immunization Name Date Status Comments Source TDAP 2007-03-07 00:00:00 Completed TDAP Unknown Completed [facility] TDAP Unknown Completed [facility] Procedures Procedure Date / Time Performed Performing Clinicia n Source US OVARY TORSION 2017-01-13 21:38:00 Lety Vela [facility] Encounters Start Date/Time End Date/Time Encounter Type Admission Type Attending [facility] Care Facility Care Department Encounter ID Source 2021-01-06 00:39:27 Outpatient RUFINO MONTALVO [facility] 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 [id number] [facility] 2021-01-05 18:22:09 Outpatient P [facility] GIUSEPPE [id number] [facility] 2021-01-05 09:38:22 Outpatient P [facility] GIUSEPPE [id number] [facility] 2021-01-05 09:18:24 Outpatient P [facility] GIUSEPPE [id number] [facility] 2017-01-13 00:00:00 2024-04-22 03:34:04 Orders Only Doctor Unassigned, [place] Doctor Unassigned, [place] [facility] [id number] [facility] 2023-01-05 00:00:00 2023-01-05 00:00:00 Outpatient [email or web address] diyala_S [facility] [id number] [facility] 2020-12-19 13:30:00 2020-12-19 13:30:00 Outpatient RUFINO MONTALVO [facility] [id number] [facility] 2020-09-24 00:00:00 2020-09-24 00:00:00 Patient Secure Msg Doctor Unassigned, [place] [facility] [id number] [facility] 2020-09-18 13:00:00 2020-09-18 13:00:00 Outpatient R RUFINO MURRAY [facility] [id number] [facility] 2020-09-12 16:00:00 2020-09-12 16:00:00 Outpatient R AGUS COLVIN [facility] [id number] [facility] 2020-09-02 08:45:00 2020-09-02 08:45:00 Outpatient R RUFINO MURRAY [facility] [id number] [facility] 2020-08-28 11:30:00 2020-08-28 11:30:00 Outpatient R RUFINO MURRAY [facility] [id number] [facility] 2020-08-15 00:00:00 2020-08-15 00:00:00 Patient Secure Msg Doctor Unassigned, [place] [facility] [id number] [facility] 2020-08-14 13:15:00 2020-08-14 13:15:00 Outpatient R RUFINO MURRAY [facility] [id number] [facility] 2020-07-16 10:00:00 2020-07-16 10:00:00 Outpatient R RUFINO MURRAY [facility] [id number] [facility] 2020-07-15 13:00:00 2020-07-15 13:00:00 Outpatient R [facility] [id number] [facility] 2020-07-12 11:00:00 2020-07-12 11:00:00 Outpatient P [facility] [id number] [facility] 2020-07-11 11:00:00 2020-07-11 11:00:00 Outpatient R [facility] [id number] [facility] 2020-07-08 14:15:00 2020-07-08 14:15:00 Outpatient R RUFINO MURRAY [facility] [id number] [facility] 2020-07-01 16:15:00 2020-07-01 16:15:00 Outpatient Corinne RUIFNO MURRAY [facility] [id number] [facility] 2020-06-27 09:00:00 2020-06-27 09:00:00 Outpatient Corinne RUFINO MURRAY [facility] [id number] [facility] 2020-06-20 09:15:00 2020-06-20 09:15:00 Outpatient Corinne RUFINO MURRAY [facility] [id number] [facility] 2020-06-17 09:00:00 2020-06-17 09:00:00 Outpatient R RUFINO MURRAY [facility] [id number] [facility] 2020-06-17 09:00:00 2020-06-17 09:00:00 Outpatient Corinne RUFINO MURRAY [facility] [id number] [facility] 2020-06-05 08:00:00 2020-06-05 08:00:00 Outpatient R [facility] [id number] [facility] 2020-06-03 14:15:00 2020-06-03 14:15:00 Outpatient R MARII AGUS [facility] [id number] [facility] 2020-05-27 11:15:00 2020-05-27 11:15:00 Outpatient R MARII AGUS [facility] [id number] [facility] 2020-05-13 11:00:00 2020-05-13 11:00:00 Outpatient Corinne MURRAYRUFINO [facility] [id number] [facility] 2020-05-08 11:00:00 2020-05-08 11:00:00 Outpatient Corinne MURRAYRUFINO [facility] [id number] [facility] 2020-04-10 10:15:00 2020-04-10 10:15:00 Outpatient Corinne MURRAYRUFINO [facility] [id number] [facility] 2020-03-15 13:00:00 2020-03-15 13:00:00 Outpatient R [facility] [id number] [facility] 2020-03-12 13:00:00 2020-03-12 13:00:00 Outpatient AGUS READ [facility] [id number] [facility] 2020-02-13 16:15:00 2020-02-13 16:15:00 Outpatient RUFINO MONTALVO [facility] [id number] [facility] 2020-02-12 08:45:00 2020-02-12 08:45:00 Outpatient Corinne MURRAY RUFINO [facility] [id number] [facility] 2020-02-06 14:30:00 2020-02-06 14:30:00 Outpatient Corinne MURRAY [facility] [id number] [facility] Results Test Description Test Time Test Comments Results Resul t Comments Source US OVARY TORSION 22:18:00 *.*.*.*.*.*.*.*.*.* .*.*.*.*FINAL*.*.*. *.*.*.*.*.*.*.*.*.* .*.*TRANSABDOMINAL AND TRANSVAGINAL PELVIC ULTRASOUND HISTORY: ?26 year old female at 9w0d with abdominal pain and nausea, ruleout ovarian torsion. COMPARISON: ?None FINDINGS: The uterus measures 13 x 5.8 x 7.8 cm. ?A live intrauterine isdemonstrated with a crown rump length of 2.32 cm corresponding to a gestationalage of 9 weeks and 1 day. Doppler studies demonstrated evidence of hearttones. The yolk sac is present measuring ?0.67 cm. The left ovary is normal in size and echotexture. The left ovary measures 2.8 x1.6 x 2.0 cm. Normal arterial and venous flow is present in the left ovary. Theright ovary is not visualized. The partially visualized bladder is unremarkable. No significant free fluid is present in the rectouterine pouch. NAKIA PASTOR MD ?Personally interpreted by: SHAYE SUNG MD /Signed/ SHAYE SUNG MD [facility]
--- NOTE | 2024-07-20 02:22 | ER ---
Nurse's Notes [facility] Name: Suzanne Venegas Age: 34 yrs Sex: Female : 1990 Arrival Date: 07/20/2024 Time: 02:04 Bed 5 Private MD: Diagnosis: Golden's palsy Presentation: 07/20 02:10 Chief complaint: Patient states: patient states she has left sided headache described km10 as "feeling heat" x 3 days. She states this feels similar to previous Weskan Palsey symptoms. Coronavirus screen: At this time, the client does not indicate any symptoms associated with coronavirus-19. Ebola Screen: No symptoms or risks identified at this time. Initial Sepsis Screen: Does the patient meet any 2 criteria? No. Patient's initial sepsis screen is negative. 02:10 Method Of Arrival: Ambulatory 10 02:10 Initial Sepsis Screen: Does the patient have a suspected source of infection? No. km10 Patient's initial sepsis screen is negative. Risk Assessment: Do you want to hurt yourself or someone else? Patient reports no desire to harm self or others. Onset of symptoms Onset of symptoms was July 18, 2024. 02:10 Acuity: AMANDA 3 km10 Triage Assessment: 02:17 Headache History: The patient has had previous headaches and this one is similar to [facility] previous episodes. General: Appears in no apparent distress. Behavior is calm, cooperative, appropriate for age. Pain: Complains of pain in left head Pain currently is 3 out of 10 on a pain scale. Pain began 2-3 days ago. Also complains of "feels like heat to left side of head". Neuro: Level of Consciousness is awake, alert, obeys commands, Oriented to person, place, time, situation, Appropriate for age Rn Manager are equal bilaterally Moves all extremities. Gait is steady, Speech is normal, Facial symmetry appears normal, Pupils are PERRLA, Intact Reports weakness in left corner of mouth pt states similar to last time she had bells palsey. Cardiovascular: Patient's skin is warm and dry. Respiratory: Airway is patent Respiratory effort is even, unlabored. 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 - Infectious Disease History:: Denies. - Social history:: Smoking status: Patient/guardian denies using tobacco, the patient reports quitting approximately 10 years ago. Screenin:30 [facility] ED Fall Risk Assessment (Adult) History of falling in the last 3 months, km10 including since admission No falls in past 3 months (0 pts) Confusion or Disorientation No (0 pts) Intoxicated or Sedated No (0 pts) Impaired Gait No (0 pts) Mobility Assist Device Used No (0 pt) Altered Elimination No (0 pt) Score/Fall Risk Level 0 - 2 = Low Risk Maintained a safe environment. Abuse screen: Denies threats or abuse. Denies injuries from another. Nutritional screening: No deficits noted. Tuberculosis screening: No symptoms or risk factors identified. Assessment: 02:30 Reassessment: see triage assessment. Pain: Complains of pain in head Pain currently is km10 3 out of 10 on a pain scale. Vital Signs: 02:10 BP 106 / 86; Pulse 92; Resp 17; Temp 98.4; Pulse Ox 100% on R/A; Weight 78.93 kg; km10 ED Course: 02:08 Patient arrived in ED. gm2 02:10 Monik Quinonez MD is Attending Physician. sp3 02:10 Arm band placed on right wrist. km10 02:13 Kamla Pennington RN is Primary Nurse. km10 02:29 Triage completed. km10 02:30 Patient has correct armband on for positive identification. Bed in low position. Call km10 light in reach. Adult w/ patient. Provided Education on: plan of care. 02:30 No provider procedures requiring assistance completed. km10 02:38 N/A. km10 Administered Medications: No medications were administered Medication: 02:30 VIS not applicable for this client. km10 Outcome: 02:22 Discharge ordered by . sp3 02:38 Discharged to home ambulatory, with family, km10 02:38 Condition: stable 02:38 Discharge instructions given to patient, Instructed on discharge instructions, follow up and referral plans. medication usage, Demonstrated understanding of instructions, follow-up care, medications, Prescriptions given X 2, 02:39 Patient left the ED. km10 Signatures: Monik Quinonez MD MD sp3 Sofya Brunson 2 Kamla Pennington RN RN km10
--- NOTE | 2024-07-20 02:22 | EDPHYS ---
Physician Documentation [facility] Name: Suzanne Venegas Age: 34 yrs Sex: Female : 1990 Arrival Date: 07/20/2024 Time: 02:04 Bed 5 Private MD: ED Physician Monik Quinonez HPI: 07/20 02:18 This 34 yrs old Female presents to ER via Unassigned with complaints of sp3 Headache, Pain, Weakness. 02:18 34-year-old female with history of Golden's palsy and zoster in the past now presents sp3 with left-sided facial pain and mild droop. Negative imaging on her last episode. Patient denies any other neurological symptoms or complaints. She currently denies significant headache, neck pain, chest pain, shortness of breath, back pain, abdominal pain, nausea, vomit, diarrhea, known sick contacts, travel history, syncope, , or any other signs or symptoms on ROS at this time.. 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 - Infectious Disease History:: Denies. - Social history:: Smoking status: Patient/guardian denies using tobacco, the patient reports quitting approximately 10 years ago. ROS: 02:19 Constitutional: Negative for fever, chills, and weight loss, Eyes: Negative for injury, sp3 pain, redness, and discharge, ENT: Negative for injury, pain, and discharge, Neck: Negative for injury, pain, and swelling, Cardiovascular: Negative for chest pain, palpitations, and edema, Respiratory: Negative for shortness of breath, cough, wheezing, and pleuritic chest pain, Abdomen/GI: Negative for abdominal pain, nausea, vomiting, diarrhea, and constipation, Back: Negative for injury and pain, : Negative for injury, bleeding, discharge, and swelling, Skin: Negative for injury, rash, and discoloration, Psych: Negative for depression, anxiety, suicide ideation, homicidal ideation, and hallucinations, Allergy/Immunology: Negative for hives, rash, and allergies, Endocrine: Negative for neck swelling, polydipsia, polyuria, polyphagia, and marked weight changes, Hematologic/Lymphatic: Negative for swollen nodes, abnormal bleeding, and unusual bruising, 02:19 All other systems are negative, Exam: 02:19 Constitutional: This is a well developed, well nourished patient who is awake, alert, sp3 and in no acute distress. Head/Face: Normocephalic, atraumatic. Eyes: Pupils equal round and reactive to light, extra-ocular motions intact. Lids and lashes normal. Conjunctiva and sclera are non-icteric and not injected. Cornea within normal limits. Periorbital areas with no swelling, redness, or edema. Neck: Trachea midline, no thyromegaly or masses palpated, and no cervical lymphadenopathy. Supple, full range of motion without nuchal rigidity, or vertebral point tenderness. No Meningismus. Chest/axilla: Normal chest wall appearance and motion. Nontender with no deformity. No lesions are appreciated. Cardiovascular: Regular rate and rhythm with a normal S1 and S2. No gallops, murmurs, or rubs. Normal PMI, no JVD. No pulse deficits. Respiratory: Lungs have equal breath sounds bilaterally, clear to auscultation and percussion. No rales, rhonchi or wheezes noted. No increased work of breathing, no retractions or nasal flaring. Abdomen/GI: Soft, non-tender, with normal bowel sounds. No distension or tympany. No guarding or rebound. No evidence of tenderness throughout. Skin: Warm, dry with normal turgor. Normal color with no rashes, no lesions, and no evidence of cellulitis. MS/ Extremity: Pulses equal, no cyanosis. Neurovascular intact. Full, normal range of motion. Psych: Awake, alert, with orientation to person, place and time. Behavior, mood, and affect are within normal limits. 02:19 Neuro: Left-sided facial droop consistent with forehead involvement and Golden's palsy Mild in nature. No other neurological symptoms. No dysarthria or speech impediment., Vital Signs: 02:10 BP 106 / 86; Pulse 92; Resp 17; Temp 98.4; Pulse Ox 100% on R/A; Weight 78.93 kg; km10 MDM: 02:10 Medical Screening Exam initiated sp3 02:21 Data reviewed: vital signs, nurses notes. ED course: 34-year-old female with probable sp3 Golden's palsy with possible early zoster. No rash noted. Will treat with prednisone and antiviral agent. Symptoms not severe enough to necessitate Lacri-Lube. Clinically I am not highly suspicious of CVA, TIA, intracranial hemorrhage, or any other signs or symptoms on ROS at this time.. Administered Medications: No medications were administered Disposition Summary: 07/20/24 02:22 Discharge Ordered Notes: Location: Home sp3 Condition: Stable sp3 Diagnosis - Golden's palsy sp3 Followup: sp3 - With: Private Physician - When: Upon discharge from the Emergency Department - Reason: If symptoms return, Continuance of care Discharge Instructions: - Discharge Summary Sheet sp3 Forms: - Medication Reconciliation Form sp3 - Antibiotic Education sp3 - Prescription Opioid Use sp3 - Patient Portal Instructions sp3 - Leadership Thank You Letter sp3 Prescriptions: - valacyclovir 1 gram Oral tablet - take 1 tablet ORAL route every 12 hours; 14 tablet; Refills: 0, Product sp3 Selection Permitted - Prednisone 20 mg Oral Tablet - take 2 tablets ORAL route once daily for 5 days; 10 tablet; Refills: 0, Product sp3 Selection Permitted Signatures: Monik Quinonez MD MD sp3 Kamla Pennington RN RN km10
[2024-07-20 03:25] VITALS: BP 106/86; TEMP 98.4; O2SAT 100
== END 2024-07-20 02:39 | disposition home or self-care (01) ==
LOC: ER 02:04
DX: G51.0 Bell's palsy (principal)
CPT/HCPCS: 99283